=== PATIENT | female | born 1940 | race African-American/Black ===

== ENCOUNTER 2017-09-16 22:18 | Observation (INO) | payer MEDICARE, MEDICAID ==
--- NOTE | 2017-09-16 23:58 | CT ---
CT HEAD NONCONTRAST 09/16/17 INDICATION: Fall, pain. Reference made to 05/22/15 exam. FINDINGS: Ventricular system is age appropriate in size. There is no intracranial hemorrhage, mass effect or mi dline shift. Exam is stable appearing to 05/22/15 exam. IMPRESSION: No acute intracranial hemorrhage or mass effect. POS: [facility]
--- NOTE | 2017-09-17 00:03 | CT ---
CT OF PELVIS 09/16/17 INDICATION: Fall, pain. FINDINGS: No evidence of fracture involving either hip joint. There is degenerative change at the symphysis pub is and sacroiliac joints without evidence for discrete fracture. Scattered areas of degenerative scle rosis and cyst formation noted. There is an incidental note of multilevel gas vacuum phenomenon at th e low lumbar spine. Prominent facet osteoarthritis is present as well. Subtle areas of osseous lucenc y of the bilateral iliac bones are present which could relate to areas of focal demineralization. Inc idental note of colonic diverticulosis and vascular disease. No pelvic ascites. IMPRESSION: No acute fracture of the pelvis identified. POS: [facility]
[2017-09-17] MEDS ORDERED: Fentanyl 100 MCG/2 ML VIAL ONE (00:07)
[2017-09-17 00:16] LABS: CKMB 0.5 ng/mL (0-6.6); Troponin I 0.023 ng/mL (< 0.028)
[2017-09-17 00:17] LABS: ALT (SGPT) 9 U/L (8-55); AST (SGOT) 14 U/L (5-34); Albumin 3.5 g/dL (3.4-4.8); Alkaline Phosphatase 94 U/L (40-150); Anion Gap 15 mmol/L (10-20); BUN (Urea Nitrogen) 55 mg/dL (9.8-20.1); Bilirubin, Total 0.6 mg/dL (0.2-1.2); Calc. Creatinine Clearance 0 mL/min (70-130); Calcium 8.6 mg/dL (7.8-10.44); Carbon Dioxide 31 mmol/L (23-31); Chloride 99 mmol/L (98-107); Estimated GFR-MDRD 5; Globulin 2.9 g/dL (2.4-3.5); Glucose 110 mg/dL (83-110); Potassium 5.2 mmol/L (3.5-5.1); Protein, Total 6.4 g/dL (6.0-8.3); Sodium 140 mmol/L (136-145)
[2017-09-17 03:54] LABS: Troponin I 0.018 ng/mL (< 0.028)
[2017-09-17 06:12] LABS: Troponin I 0.025 ng/mL (< 0.028)
[2017-09-17 07:53] VITALS: BMI 44.5
[2017-09-17] MEDS ORDERED: Acetaminophen 325 MG TAB PO PRN (08:37)
[2017-09-17] MEDS ORDERED: Bisacodyl 5 MG TAB PO PRN (08:37)
[2017-09-17] MEDS ORDERED: HumaLOG 300 UNITS/3 ML VIAL SC PRN (08:41)
[2017-09-17] MEDS ORDERED: Dextrose 50% Abboject 50 ML SYRINGE SLOW IVP PRN (08:41)
[2017-09-17] MEDS ORDERED: Dextrose 5% in Water 1,000 ML IV PRN (08:41)
[2017-09-17] MEDS ORDERED: Nitroglycerin 0.4 MG TAB (25 Tab Bottle) SL PRN (09:02)
--- NOTE | 2017-09-17 09:20 | HP ---
PRIMARY CARE PHYSICIAN: Neela Hugo M.D. CHIEF COMPLAINT: Chest pain. HISTORY OF PRESENT ILLNESS: Ms. Ansari is a pleasant 77-year-old lady who was seen at [facility] on 09/17/2017 following transfer from emergency room at [place]. The patient is able to provide some history. Collateral history was obtained from review of medical records and from discussion with emergency room physician. Ms. Ansari was reportedly sitting in a chair yesterday when she felt pain in the retrosternal region a s well as over the left side of her chest. She reports that it was dull, nonradiating, not accompani ed by shortness of breath or nausea, no known aggravating or relieving factors. The pain lasted few minutes and resolved. She subsequently tried to get out to the chair and fell down. She denies loss of consciousness. She denies any head trauma. She reports pain in the left lower extremity, which has almost resolved. She currently has no chest pain. REVIEW OF SYSTEMS: The following complete review of systems was negative, unless otherwise mentioned in the HPI or below: Constitutional: Weight loss or gain, sense of well-being, ability to conduct usual activities, exerc ise tolerance. Skin/Breast: Rash, itching, changes in hair growth or loss, nail changes, breast lumps, tenderness, swelling, nipple discharge. Eyes: Vision, double vision, tearing, blind spots, pain. ENT/Mouth: Headaches (location, time of onset, duration, precipitating factors), vertigo, lightheade dness, injury. Vision, double vision, tearing, blind spots, pain, nose bleeding, colds, obstruction, discharge, dental difficulties, gingival bleeding, dentures, neck stiffness, pain, tenderness, masses in thyroid or other areas Cardiovascular: Precordial pain, substernal distress, palpitations, syncope, dyspnea on exertion, or thopnea, nocturnal paroxysmal dyspnea, edema, cyanosis, hypertension, heart murmurs, varicosities, ph lebitis, claudication. Respiratory: Pain, shortness of breath, wheezing, stridor, cough, hemoptysis, fever or night sweats Gastrointestinal: Poor appetite, dysphagia, indigestion, abdominal pain, heartburn, eructation, naus ea, vomiting, hematemesis, jaundice, constipation, or diarrhea, abnormal stools (sandoval-colored, tarry, bloody, greasy, foul smelling), flatulence, hemorrhoids, recent changes in bowel habits. Genitourinary: Urgency, frequency, dysuria, nocturia, hematuria, polyuria, oliguria, unusual (or trin[place] nge in) color of urine, stones, hesitancy, change in size of stream, dribbling, acute retention or in continence, libido, potency. Musculoskeletal: Pain, swelling, redness or heat of muscles or joints, limitation, of motion, muscul ar weakness, atrophy, cramps. Neurologic/Psychiatric: Convulsions, paralyses, tremor, incoordination, paraesthesias, difficulties with memory of speech, sensory or motor disturbances, or muscular coordination (ataxia, tremor), emot ional problems, anxiety, depression, previous psychiatric care, unusual perceptions, hallucinations. Allergy/Immunologic: Skin rash, anemia, bleeding tendency, polydipsia, polyuria, intolerance to heat or cold. PAST MEDICAL HISTORY: Significant for diabetes mellitus type 2, chronic diastolic heart failure, end -stage renal disease on hemodialysis, she was supposed to get dialysis yesterday, but did not get gerald lyzed and was supposed to undergo hemodialysis today, pulmonary embolism on warfarin therapy, breast cancer status post mastectomy, hypertension, chronic pain, gout, dyslipidemia, and chronic anemia. PAST SURGICAL HISTORY: Significant for bilateral mastectomy and dialysis fistula placement. ALLERGIES: No known drug allergies. FAMILY HISTORY: Significant for pulmonary embolism in the patient's son. SOCIAL HISTORY: The patient denies tobacco use, alcohol use or recreational drug use. CODE STATUS: I discussed her code status. She is FULL CODE. CURRENT MEDICATIONS: Include warfarin 2.5 mg every other day, allopurinol 100 mg daily, Nitrostat p. r.n., amitriptyline 50 mg daily, anastrozole 1 mg daily, atorvastatin 10 mg daily, folic acid 800 mcg daily, gabapentin 300 mg 3 times a day, Coreg 3.125 mg daily, Renvela 800 mg 2 tablets three times a day, [place] p.r.n., and Sensipar 30 mg daily. PHYSICAL EXAMINATION: GENERAL: On examination, Ms. Ansari is awake and alert, not in acute distress. VITAL SIGNS: Blood pressure is 144/66, pulse is 80. She is breathing at rate of 16 and saturating 9 7% on 2 liters of oxygen. She is afebrile. She is morbidly obese, with BMI of 44.[address] kg [address] square [address] ter. EYES: No scleral icterus. No conjunctival pallor. ENT: Moist mucosal membranes. No oropharyngeal erythema or exudates. NECK: Supple, nontender, normal range of movement. Trachea is midline. RESPIRATORY: Accessory muscles of breathing are not active. Chest wall movements are symmetric bila terally. LUNGS: Clear to auscultation without wheeze, rhonchi or crepitations. ABDOMEN: Soft, distended, nontender, bowel sounds are heard, no hepatomegaly, no splenomegaly. CARDIOVASCULAR: S1 and S2 are heard, regular. Peripheral pulses palpable. No carotid bruit, no per icardial rub. She has a right upper extremity dialysis access. NEUROLOGIC: Cranial nerves II-XII are intact. Deep tendon reflexes are 2+. MUSCULOSKELETAL: Mild tenderness over the left calf. SKIN: No rashes or subcutaneous nodules. LYMPHATIC: No cervical lymphadenopathy. PSYCHIATRIC: Normal mood, normal affect, patient is oriented to person and place, not to time. IMAGING DATA AND LABORATORY DATA: Ms. Ansari's labs and investigations were reviewed. I reviewed her electrocardiogram, which shows normal sinus rhythm, no ST changes to suggest an acute coronary syndr ome. I also reviewed her chest x-ray, which does not show any pulmonary infiltrates. X-rays of the left hip did not reveal any fracture or dislocation. She has minimal degenerative changes. CT scan of the brain without contrast did not reveal any acute intracranial hemorrhage or mass effect. CT sc an of the pelvis did not reveal any acute fracture. Laboratory investigation show INR of 2.4 and D-d alon elevated at 0.64. Sodium 140, potassium elevated at 5.2, creatinine elevated at 9.16, unremarka ble liver profile, BNP elevated at 329.9 and negative troponin I x4. ASSESSMENT AND PLAN: Ms. Ansari is a pleasant 77-year-old lady who was seen at [facility] on 09/17/2017. Her problem list includes: 1. Chest pain: This has resolved. She has risk factors for coronary artery disease. We will monit or her on telemetry and order nuclear stress test. 2. End-stage renal disease on dialysis. Consult Nephrology for maintenance hemodialysis. 3. Fall: We will have her mobility evaluated after ruling out acute coronary syndrome. 4. Leg pain: She complains of left lower extremity pain. She has calf tenderness. Her INR is ther apeutic and she is less likely to have deep venous thrombosis. We will check carotid Dopplers to rul e out anticoagulation failure. 5. Diabetes mellitus: Start Accu-Cheks, insulin sliding scale. 6. Hypertension: Monitor vital signs, titrate antihypertensives as needed. 7. Dyslipidemia: Continue statins. Many thanks for allowing me to participate in your patient's care. Please feel free to contact me wi th any questions or concerns. LEVEL OF RISK: High. LEVEL OF COMPLEXITY: High.
[2017-09-17 10:26] LABS: Hep B Surf Ag Non-Reactive S/CO (NonReactive)
--- NOTE | 2017-09-17 11:03 | CON ---
DATE OF CONSULTATION: 09/17/2017 SUBJECTIVE: Ms. Ansari is a 77-year-old black female with known history of ESRD - on maintenance hemo dialysis and admitted for chest pain. Patient was apparently well until about a day prior to admissi on when she developed a nonspecific chest pain. She denied any syncopal episode with this. She had a mild shortness of breath. She has also some tremors at that time. We are now being consulted for her maintenance hemodialysis. She is due for dialysis today. REVIEW OF SYSTEMS: Positive for chest pain. Positive for mild shortness of breath. No nausea, no s ore throat, and positive for tremors. No diarrhea, no constipation, no gross hematuria, no productiv e cough, no fever or chills, no headache, no syncopal episode, no hematochezia, no melena, no hematem esis. Appetite and energy level is fair. Occasional joint pains. PAST MEDICAL HISTORY: Includes the following; ESRD, currently on maintenance hemodialysis 3 times a week; history of anxiety; longstanding hypertension; diabetes mellitus; hyperlipidemia; breast cancer in remission; diabetic neuropathy, status post CHF - diastolic dysfunction; history of gout and DJD. PAST SURGICAL HISTORY: 1. Status post AV fistula placement. 2. Status post cuffed dialysis catheter placement. 3. Status post colonoscopy. 4. Status post laparoscopic cholecystectomy. 5. Status post left breast biopsy. 6. Status post left mastectomy 7. Status post right knee replacement. SOCIAL HISTORY: Patient lives in [place], 6 children, eleventh grade. 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 No history of smoking. Status post blood transfusion. No IV drug abuse. No alcohol use, 7 siblings, 6 childre n, lives alone. ALLERGIES: None. TRAUMA: None. IMMUNIZATIONS: Up to date. HOSPITALIZATIONS: Please see past medical history. FAMILY HISTORY: Positive family history of ESRD. One sister on dialysis. PHYSICAL EXAMINATION: VITAL SIGNS: Blood pressure is noted at 144/66, heart rate 80, respiratory rate 16, temperature 97.8 , and pulse ox 97%. GENERAL: Noted to be awake, supine, morbidly obese, not in distress. SKIN: Adequate turgor. HEENT: Patient has pinkish conjunctivae, anicteric sclerae. NECK: No neck mass, no carotid bruits, no JVD. CHEST: No deformities. LUNGS: Clear breath sounds. No wheezing, no crackles. HEART: Normal sinus rhythm. No murmur, no gallops, no rubs. ABDOMEN: Globular, soft, nontender, no masses. EXTREMITIES: No edema, no deformities. MEDICATIONS: Medications of 09/17/2017 shows the following: Tylenol p.r.n., [place] 10/325 t.i.d. as needed, Zyloprim 100 mg tab once a day, Arimidex 1 mg daily, Lipitor 10 mg at bedtime, Coreg dose unk nown, Sensipar 30 mg daily, Folvite 0.8 mg once a day, heparin 5000 units subcutaneous b.i.d., Renvel a 800 mg 2 tabs t.i.d. with meals, and Coumadin as directed. ASSESSMENT AND PLAN: 1. End-stage renal disease, stable. We will continue 3 times a week hemodialysis regimen with this patient. I reviewed her KT/V and she is well dialyzed with the current hemodialysis regimen. The pl an is to do dialyzer for 4 hours with ultrafiltration of 2-3 liters. Heparin regimen to be followed from her outpatient dialysis regimen. In addition, no changes will be made with the current dialysis . The patient has been doing well with the current dialysis regimen. 2. Chest pain. The patient being ruled out for myocardial infarction. Possible cardiac stress test ? 3. Anemia - she is stable. There is no indication to initiate Epogen for the moment. We will only restart Epogen once hemoglobin drops down to 10 or less. Overall, agree with current management.
[2017-09-17] MEDS: Sevelamer Carbonate 800 MG TAB PO SCH ×2 (13:19→20:32)
--- NOTE | 2017-09-17 14:42 | NM ---
MYOCARDIAL STRESS STUDY: HISTORY: Chest pain. TECHNIQUE/FINDINGS: Dose: 28.3 mCi of technetium-99m Cardiolite for the stress portion of the exam. The patient was stre ssed using 57.7 mg of Adenosine. Myocardial perfusion stress study demonstrates no evidence of areas of myocardial ischemia or scar. E jection fraction measures 62%. IMPRESSION: No evidence of myocardial perfusion abnormalities on the stress images. Resting portion was not indic ated. POS: [facility]
--- NOTE | 2017-09-17 16:18 | ULT ---
LEFT LOWER EXTREMITY VENOUS DOPPLER ULTRASOUND: Date: 09/17/17 HISTORY: Left lower extremity swelling/edema. TECHNIQUE: Multiple longitudinal and transverse images of the left lower extremity venous systems are obtained u sing multihertz linear array transducer. Real-time, color flow, and spectral waveform Doppler analysi s used to evaluate the left lower extremity. FINDINGS: No evidence of acute or old clot seen on the left common femoral, superficial femoral, femora profund a, popliteal, posterior tibial vein, post-trifurcation vein, or greater saphenous vein. There does appear to be some edema noted within the soft tissues. IMPRESSION: 1. No evidence of left lower extremity deep venous thrombosis. 2. Soft tissue edema as noted. POS: [facility]
[2017-09-17] MEDS ORDERED: ADENOSINE 60 MG/20 ML VIAL ONE (16:19)
--- NOTE | 2017-09-17 16:43 | PDOC.EVN ---
Event Note - Event Note Event Note: Pt had orders with status of Inpatient. Discussed with case management. Pt does not meet the criteria for Inpatient status. Changed status to Observation status.
[2017-09-17] MEDS ORDERED: Warfarin Sodium 2.5 MG TAB PO SCH (17:00)
[2017-09-17] MEDS: Gabapentin 300 MG CAP PO SCH ×2 (17:57→20:35)
[2017-09-17] MEDS: HYDROcodone/Acetaminophen 10/325 mg Tablet PO SCH ×2 (17:57→20:35)
[2017-09-17] MEDS: Carvedilol 3.125 MG TAB PO SCH (20:34)
[2017-09-17] MEDS: Amitriptyline HCl 25 MG TAB PO SCH (20:36)
[2017-09-17] MEDS: Docusate 100 MG CAP PO PRN (20:37)
[2017-09-17] MEDS: Atorvastatin Calcium 10 MG TAB PO SCH (20:39)
[2017-09-17] MEDS ORDERED: Warfarin Sodium 2 MG TAB PO SCH (20:45)
[2017-09-18 04:43] LABS: INR-International Normal Ratio 2.5
[2017-09-18 04:45] LABS: #Eosinphils 0.3 thou/uL (0.0-0.7); #Monocytes 0.5 thou/uL (0.11-0.59); #Neutrophils 6.1 thou/uL (1.40-6.50); %Basophils 0.5 % (0.0-1.0); %Eosinophils 3.2 % (0.0-10.0); %Lymphocytes 12.2 % (21.0-51.0); %Monocytes 6.4 % (0.0-10.0); %Neutrophils 77.7 % (42.0-75.0); Hemoglobin 9.9 g/dL (12.0-16.0); Mean Corpuscular HGB CONC 31.7 g/dL (32.0-36.0); Mean Corpuscular Hemoglobin 31.7 pg (27.0-31.0); Mean Corpuscular Volume 99.9 fl (81.0-99.0); Mean Platelet Volume 7.2 fL (7.4-10.4); Platelet Count 252 thou/uL (130-400); RBC Distribution Width 13.4 % (11.5-14.5); Red Blood Cell (RBC) Count 3.11 mill/uL (4.20-5.40); White Blood Cell (WBC) Count 7.8 thou/uL (4.8-10.8)
[2017-09-18 05:16] LABS: Anion Gap 11 mmol/L (10-20); BUN (Urea Nitrogen) 29 mg/dL (9.8-20.1); Calc. Creatinine Clearance 14 mL/min (70-130); Calcium 8.5 mg/dL (7.8-10.44); Carbon Dioxide 34 mmol/L (23-31); Chloride 99 mmol/L (98-107); Estimated GFR-MDRD 9; Glucose 111 mg/dL (83-110); Potassium 4.3 mmol/L (3.5-5.1); Sodium 140 mmol/L (136-145)
[2017-09-18] MEDS: Folic Acid 1 MG TAB PO SCH (08:12)
[2017-09-18] MEDS: Sevelamer Carbonate 800 MG TAB PO SCH ×3 (08:12→17:10)
[2017-09-18] MEDS: Cinacalcet HCl 30 MG TAB PO SCH (08:12)
[2017-09-18] MEDS: Loratadine 10 MG TAB PO SCH (08:12)
[2017-09-18] MEDS: Anastrozole 1 MG TAB PO SCH (08:12)
[2017-09-18] MEDS: Allopurinol 100 MG TAB PO SCH (08:12)
[2017-09-18] MEDS: Gabapentin 300 MG CAP PO SCH ×3 (08:12→19:57)
[2017-09-18] MEDS: HYDROcodone/Acetaminophen 10/325 mg Tablet PO SCH ×3 (08:17→19:57)
--- NOTE | 2017-09-18 15:07 | PDOC.PN ---
- Subjective Encounter Start Date: 09/18/17 Encounter Start Time: 15:06 Pt seen for followup re: chest pain. No chest pain now. No other complaints. - Objective Resuscitation Status: Resuscitation Status FULL:Full Resuscitation MAR Reviewed: Yes Vital Signs & Weight: Vital Signs (12 hours) Temp Pulse Resp BP BP Pulse Ox 09/18/17 08:00 98.2 F 74 18 09/18/17 07:51 97 09/18/17 07:45 98.2 F 74 18 123/58 L 98 09/18/17 04:02 98.5 F 73 12 137/66 97 Weight Weight 226 lb 10.163 oz I&O: 09/17/17 09/18/17 09/19/17 06:59 06:59 06:59 Intake Total 280 Output Total 0 Balance 280 Result Diagrams: 09/18/17 04:04 09/18/17 04:04 Additional Labs: Accuchecks 09/18/17 09/17/17 11:10 20:40 POC Glucose 155 H 95 EKG Reviewed by me: Yes (Tele: NSR) Phys Exam - Physical Examination Constitutional: NAD HEENT: moist MMs Neck: supple Respiratory: clear to auscultation bilateral Cardiovascular: RRR Gastrointestinal: soft Neurological: moves all 4 limbs Psychiatric: normal affect Skin: no rash Dx/Plan (1) Chest pain Code(s): R07.9 - CHEST PAIN, UNSPECIFIED Status: Acute (2) Anticoagulant long-term use Code(s): Z79.01 - HALF-WAY (CURRENT) USE OF ANTICOAGULANTS Status: Chronic (3) DM2 (diabetes mellitus, type 2) Status: Chronic (4) Hypertension Code(s): I10 - ESSENTIAL (PRIMARY) HYPERTENSION Status: Chronic (5) ESRD on dialysis Code(s): N18.6 - END STAGE RENAL DISEASE; Z99.2 - DEPENDENCE ON RENAL DIALYSIS Status: Chronic - Plan PT/OT, out of bed/ambulate * . Stress test normal. No chest pain today. h/o falls. Needs PT eval prior to discharge home. Monitor vital signs, titrate antihypertensives as needed. Continue accuchecks, insulin sliding scale. Review of Systems - Review of Systems Respiratory: negative: Cough, Dry, Shortness of Breath, Hemoptysis, SOB with Excertion, Pleuritic Pain, Sputum, Wheezing Cardiovascular: negative: chest pain, palpitations, orthopnea, paroxysmal nocturnal dyspnea, edema, light headedness - Medications/Allergies Allergies/Adverse Reactions: Allergies Allergy/AdvReac Type Severity Reaction Status Date / Time No Known Drug Allergies Allergy Unknown Verified 04/20/16 14:54 Medications: Current Medications Acetaminophen (Tylenol) 650 mg PO Q4H PRN PRN Reason: Headache/Fever or Pain Last Admin: 09/18/17 04:18 Dose: 650 mg Hydrocodone Bitart/Acetaminophen ([place] 10/325) 1 tab PO TID [facility] Last Admin: 09/18/17 14:18 Dose: 1 tab Allopurinol (Zyloprim) 100 mg PO DAILY [facility] Last Admin: 09/18/17 08:12 Dose: 100 mg Amitriptyline HCl (Elavil) 50 mg PO HS [facility] Last Admin: 09/17/17 20:36 Dose: 50 mg Anastrozole (Arimidex) 1 mg PO DAILY [facility] Last Admin: 09/18/17 08:12 Dose: 1 mg Atorvastatin Calcium (Lipitor) 10 mg PO HS [facility] Last Admin: 09/17/17 20:39 Dose: 10 mg Bisacodyl (Dulcolax) 10 mg PO DAILYPRN PRN PRN Reason: Constipation Carvedilol (Coreg) 3.125 mg PO QPM [facility] Last Admin: 09/17/17 20:34 Dose: 3.125 mg Cinacalcet (Sensipar) 30 mg PO DAILY [facility] Last Admin: 09/18/17 08:12 Dose: 30 mg Dextrose/Water (Dextrose 50%) 25 gm SLOW IVP PRN PRN PRN Reason: Hypoglycemia Docusate Sodium (Colace) 300 mg PO DAILY PRN PRN Reason: Constipation Last Admin: 09/17/17 20:37 Dose: 300 mg Folic Acid (Folvite) 1 mg PO DAILY [facility] Last Admin: 09/18/17 08:12 Dose: 1 mg Gabapentin (Neurontin) 300 mg PO TID [facility] Last Admin: 09/18/17 14:19 Dose: 300 mg Glucagon (Glucagon) 1 mg IM PRN PRN PRN Reason: Hypoglycemia Dextrose/Water (D5w) 1,000 mls @ 0 mls/hr IV .Q0M PRN; As Directed PRN Reason: Hypoglycemia Insulin Human Lispro (Humalog) 0 units SC .MILD SLIDING SCALE PRN PRN Reason: Mild Correctional Scale Lactulose (Lactulose) 20 gm PO PRN PRN PRN Reason: Constipation Loratadine (Claritin) 10 mg PO DAILY [facility] Last Admin: 09/18/17 08:12 Dose: 10 mg Nitroglycerin (Nitrostat) 0.4 mg SL ASDIR PRN PRN Reason: Chest Pain Sevelamer Carbonate (Renvela) 1,600 mg PO TID-WM [facility] Last Admin: 09/18/17 11:43 Dose: 1,600 mg Sodium Chloride (Flush - Normal Saline) 10 ml IVF Q12HR [facility] Last Admin: 09/18/17 08:14 Dose: 10 ml Sodium Chloride (Flush - Normal Saline) 10 ml IVF PRN PRN PRN Reason: Saline Flush Warfarin Sodium (Coumadin) 2 mg PO 1700 [facility]
[2017-09-18] MEDS ORDERED: Warfarin Sodium 2 MG TAB PO SCH (17:00)
[2017-09-18] MEDS: Amitriptyline HCl 25 MG TAB PO SCH (19:56)
[2017-09-18] MEDS: Atorvastatin Calcium 10 MG TAB PO SCH (19:57)
[2017-09-18] MEDS: Carvedilol 3.125 MG TAB PO SCH (19:57)
[2017-09-18] MEDS: Docusate 100 MG CAP PO PRN (19:59)
[2017-09-19 04:35] LABS: #Eosinphils 0.2 thou/uL (0.0-0.7); #Lymphocytes 1.4 thou/uL (1.20-3.40); #Monocytes 0.8 thou/uL (0.11-0.59); #Neutrophils 5.1 thou/uL (1.40-6.50); %Basophils 0.6 % (0.0-1.0); %Lymphocytes 18.5 % (21.0-51.0); %Monocytes 9.9 % (0.0-10.0); Hemoglobin 10.4 g/dL (12.0-16.0); Mean Corpuscular HGB CONC 32.7 g/dL (32.0-36.0); Mean Corpuscular Hemoglobin 32.6 pg (27.0-31.0); Mean Corpuscular Volume 99.9 fl (81.0-99.0); Mean Platelet Volume 7.1 fL (7.4-10.4); Platelet Count 257 thou/uL (130-400); RBC Distribution Width 13.2 % (11.5-14.5); White Blood Cell (WBC) Count 7.5 thou/uL (4.8-10.8)
[2017-09-19 04:38] LABS: INR-International Normal Ratio 2.4; Prothrombin Time 27.3 SEC (12.0-14.7)
[2017-09-19 04:54] LABS: Anion Gap 15 mmol/L (10-20); BUN (Urea Nitrogen) 41 mg/dL (9.8-20.1); Calc. Creatinine Clearance 10 mL/min (70-130); Calcium 8.3 mg/dL (7.8-10.44); Carbon Dioxide 31 mmol/L (23-31); Chloride 98 mmol/L (98-107); Estimated GFR-MDRD 6; Glucose 103 mg/dL (83-110); Potassium 4.2 mmol/L (3.5-5.1); Sodium 140 mmol/L (136-145)
--- NOTE | 2017-09-19 08:20 | PDOC.PN ---
- Subjective Encounter Start Date: 09/19/17 Encounter Start Time: 08:18 Subjective: no chest pain, etc - Objective Resuscitation Status: Resuscitation Status FULL:Full Resuscitation MAR Reviewed: Yes Vital Signs & Weight: Vital Signs (12 hours) Temp Pulse Resp BP Pulse Ox 09/19/17 07:36 98.2 F 83 18 104/58 L 95 09/19/17 03:47 97.9 F 73 18 139/71 98 Weight Weight 225 lb 3.2 oz I&O: 09/18/17 09/19/17 09/20/17 06:59 06:59 06:59 Intake Total 280 1650 Output Total 0 100 Balance 280 1550 Result Diagrams: 09/19/17 03:44 09/19/17 03:44 Additional Labs: Accuchecks 09/18/17 09/18/17 09/18/17 20:35 16:28 11:10 POC Glucose 201 H 149 H 155 H Phys Exam - Physical Examination Neck: no JVD Respiratory: clear to auscultation bilateral Cardiovascular: RRR Gastrointestinal: soft, non-tender, positive bowel sounds Musculoskeletal: edema present Dx/Plan (1) Chest pain Code(s): R07.9 - CHEST PAIN, UNSPECIFIED Status: Resolved (2) ESRD on dialysis Code(s): N18.6 - END STAGE RENAL DISEASE; Z99.2 - DEPENDENCE ON RENAL DIALYSIS Status: Chronic (3) Diastolic dysfunction with acute on chronic heart failure Code(s): I50.33 - ACUTE ON CHRONIC DIASTOLIC (CONGESTIVE) HEART FAILURE Status : Chronic (4) Respiratory failure with hypoxia Code(s): J96.91 - RESPIRATORY FAILURE, UNSPECIFIED WITH HYPOXIA Status: Chronic Qualifiers: Chronicity: chronic Qualified Code(s): J96.11 - Chronic respiratory failure with hypoxia (5) Anticoagulant long-term use Code(s): Z79.01 - [facility]FP (CURRENT) USE OF ANTICOAGULANTS Status: Chronic (6) DM2 (diabetes mellitus, type 2) Status: Chronic Qualifiers: Diabetes mellitus complication status: with kidney complications Chronic kidney disease stage: on chronic dialysis (7) Hypertension Code(s): I10 - ESSENTIAL (PRIMARY) HYPERTENSION Status: Chronic Qualifiers: Hypertension type: essential hypertension Qualified Code(s): I10 - Essential (primary) hypertension (8) h/o Pulmonary embolism on coumadin Status: Chronic - Plan cont current tx, eval for rehab in progress, FU * .
[2017-09-19] MEDS: Sevelamer Carbonate 800 MG TAB PO SCH ×2 (08:35→11:50)
[2017-09-19] MEDS: Folic Acid 1 MG TAB PO SCH (08:35)
[2017-09-19] MEDS: Anastrozole 1 MG TAB PO SCH (08:36)
[2017-09-19] MEDS: HYDROcodone/Acetaminophen 10/325 mg Tablet PO SCH (08:36)
[2017-09-19] MEDS: Cinacalcet HCl 30 MG TAB PO SCH (08:37)
[2017-09-19] MEDS: Allopurinol 100 MG TAB PO SCH (08:37)
[2017-09-19] MEDS: Loratadine 10 MG TAB PO SCH (08:37)
[2017-09-19] MEDS: Gabapentin 300 MG CAP PO SCH (08:37)
[2017-09-19] MEDS ORDERED: Diabetic Tussin 200 MG/10 ML UDCUP PO PRN (09:47)
[2017-09-19 11:28] VITALS: TEMP 99
[2017-09-19 13:28] VITALS: BP 136/62
--- NOTE | 2017-09-19 15:53 | DIS ---
DATE OF ADMISSION: 09/17/2017 DATE OF DISCHARGE: 09/19/2017 PRIMARY CARE PROVIDER: Neela Hugo M.D. DISCHARGE DISPOSITION: Inpatient rehabilitation, [facility]. FINAL DIAGNOSES: Noncardiac chest pain; history of pulmonary emboli; long-term use of anticoagulants ; type 2 diabetes mellitus; end-stage renal disease, on hemodialysis; syncope. DISCHARGE MEDICATIONS: Coumadin 2 mg at 1700 hours, insulin 20 units subcu at bedtime, Levemir, Renv jermaine 1600 mg t.i.d., folic acid 800 mg a day, Neurontin 300 mg 3 times a day, [place] 10/325 one t.i.d. p.r.n., Arimidex 1 mg a day, Lipitor 10 mg a day, Coreg 3.125 mg b.i.d. daily, allopurinol 100 mg a d ay, amitriptyline 50 mg a day, Sensipar 30 mg a day. ALLERGIES: No known drug allergies. PENDING AT TIME OF DISCHARGE: Nothing. CODE STATUS: FULL. HOSPITAL COURSE: The patient admitted to the hospital with chest pain. Nuclear medicine cardiac str ess test was unrevealing for reversible ischemia. Vascular ultrasound of her legs, no evidence of DV T. She was seen and followed by Dr. Leeroy Mcqueen and received hemodialysis while in the hospital. Her pertinent laboratory, white count normal 7.8 and 7.5, hemoglobin 9.9 and 10.4, platelet count 252 ,100 and 257,100. INR 2.5 and 2.4. BUN 29-41 and creatinine 5.5-7.58. Electrolytes balanced. The patient was evaluated for inpatient rehabilitation and has been accepted, is being transferred there for continuing PT/OT. After discharge, she will be seen in followup by . Her INR is stable , but she will need INR testing at some point during her rehabilitation stay. However, her dose has not been adjusted and her INR is perfect at this time.
--- NOTE | 2017-10-03 10:29 | STRESS ---
Acquisition Time: 2017-09-17 10:53:11 Total Exercise Time: 00:04:00 Test Indications: CHEST PAIN Medications: Protocol: ADENOSINE Max HR: 093 BPM 65% of Pred: 142 BPM Max BP: 132/062 mmHG Max Work Load: 1.0 METS THE PATIENT WAS STRESSED ADENOSINE. SHE DID NOT DEVELOP CHEST PAIN. NUCLEAR IMAGES TO FOLLOW. Confirmed by AQUILES ALVAREZ ([id number]), research editor ALMA SAAB ([id number]) on 10/03/2017 10:28:56 AM Referred By: MD Nathan SELBY Confirmed By:AQUILES ALVAREZ
--- NOTE | 2017-11-05 19:19 | EKG ---
Test Reason : Blood Pressure : / mmHG Vent. Rate : 079 BPM Atrial Rate : 079 BPM P-R Int : 144 ms QRS Dur : 088 ms QT Int : 388 ms P-R-T Axes : 046 012 038 degrees QTc Int : 444 ms Normal sinus rhythm Early repolarization Nonspecific T wave abnormality Normal ECG Confirmed by CALLIE ROBERTO, SOFIA Mesa ([id number]), metropolitan editor CHRISTIANO CASE ([id number]) on 11/05/2017 7:18:43 PM Referred By: Confirmed By:SOFIA LEDESMA MD
== END 2017-09-19 14:56 ==
LOC: ERS 22:18 → ERHOLD 09-17 01:07 → INTOOBSV 09-17 01:07 → 2SW 09-17 07:27
PROVIDERS: ADMIT Internal Medicine; ATTEND Internal Medicine
DX: R07.89 Other chest pain (principal); E11.22 Type 2 diabetes mellitus with diabetic chronic kidney disease; I13.2 Hypertensive heart and chronic kidney disease with heart failure and with stage 5 chronic kidney disease, or end stage renal disease; I50.32 Chronic diastolic (congestive) heart failure; N18.6 End stage renal disease; R55 Syncope and collapse; G89.29 Other chronic pain; M10.9 Gout, unspecified; E78.5 Hyperlipidemia, unspecified; D63.1 Anemia in chronic kidney disease; M79.662 Pain in left lower leg; F41.9 Anxiety disorder, unspecified; C50.919 Malignant neoplasm of unspecified site of unspecified female breast; E11.40 Type 2 diabetes mellitus with diabetic neuropathy, unspecified; M19.90 Unspecified osteoarthritis, unspecified site; Z99.2 Dependence on renal dialysis; Z79.01 Long term (current) use of anticoagulants; Z79.4 Long term (current) use of insulin; Z79.899 Other long term (current) drug therapy; Z96.651 Presence of right artificial knee joint; Z90.13 Acquired absence of bilateral breasts and nipples; Z98.890 Other specified postprocedural states; Z86.711 Personal history of pulmonary embolism
CPT/HCPCS: 70450; 72192; 78452; 80048 ×2; 80053; 82553; 82962 ×3; 83880; 84484 ×3; 85025 ×2; 85379; 85610 ×2; 87340; 93005; 93017; 93971; 94760 ×2; 96374; 97116 ×2; 97139 ×2; 97530; 99285; A9500; G0378 ×3; G8978; G8979; 36415; 36416; 90935; A4216; G0257; J0153; J3010

== ENCOUNTER 2017-11-15 22:03 | Inpatient (IN) | payer MEDICARE, MEDICAID ==
[2017-11-15] MEDS ORDERED: Pantoprazole 40 MG VIAL ONE (22:55)
[2017-11-15] MEDS ORDERED: Phytonadione 10 MG/ML AMP ONE (22:57)
[2017-11-15 23:12] LABS: #Basophils 0.1 thou/uL (0.0-0.2); #Eosinphils 0.2 thou/uL (0.0-0.7); #Lymphocytes 1.8 thou/uL (1.20-3.40); #Monocytes 0.7 thou/uL (0.11-0.59); #Neutrophils 6.7 thou/uL (1.40-6.50); %Basophils 0.8 % (0.0-1.0); %Eosinophils 2.6 % (0.0-10.0); %Lymphocytes 18.7 % (21.0-51.0); %Monocytes 7.4 % (0.0-10.0); %Neutrophils 70.4 % (42.0-75.0); Hemoglobin 8.1 g/dL (12.0-16.0); Mean Corpuscular HGB CONC 33.2 g/dL (32.0-36.0); Mean Corpuscular Hemoglobin 33.2 pg (27.0-31.0); Mean Platelet Volume 7.6 fL (7.4-10.4); Platelet Count 249 thou/uL (130-400); RBC Distribution Width 13.6 % (11.5-14.5); Red Blood Cell (RBC) Count 2.45 mill/uL (4.20-5.40); White Blood Cell (WBC) Count 9.5 thou/uL (4.8-10.8)
[2017-11-15 23:19] LABS: PTT 53.3 SEC (22.9-36.1); Prothrombin Time 42.7 SEC (12.0-14.7)
[2017-11-15 23:21] LABS: INR-International Normal Ratio 4.2
[2017-11-15 23:38] LABS: Troponin I 0.044 ng/mL (< 0.028)
[2017-11-16] MEDS ORDERED: Dextrose 5% in Water 1,000 ML IV PRN (02:05)
[2017-11-16] MEDS ORDERED: HumaLOG 300 UNITS/3 ML VIAL SC PRN (02:05)
[2017-11-16] MEDS ORDERED: Dextrose 50% Abboject 50 ML SYRINGE SLOW IVP PRN (02:05)
[2017-11-16] MEDS ORDERED: Ondansetron HCl/PF 4 MG/2 ML Vial IVP PRN (02:05)
[2017-11-16] MEDS ORDERED: Pantoprazole 80 MG in Sodium Chloride 0.9% 100 ML IVP SCH (02:30)
[2017-11-16 05:53] LABS: #Eosinphils 0.4 thou/uL (0.0-0.7); #Lymphocytes 1.9 thou/uL (1.20-3.40); #Monocytes 0.8 thou/uL (0.11-0.59); %Basophils 0.5 % (0.0-1.0); %Eosinophils 4.5 % (0.0-10.0); %Lymphocytes 20.9 % (21.0-51.0); %Monocytes 8.2 % (0.0-10.0); %Neutrophils 65.9 % (42.0-75.0); Hemoglobin 8.8 g/dL (12.0-16.0); Mean Corpuscular HGB CONC 33.1 g/dL (32.0-36.0); Mean Corpuscular Hemoglobin 32.4 pg (27.0-31.0); Mean Corpuscular Volume 97.9 fl (81.0-99.0); Mean Platelet Volume 7.4 fL (7.4-10.4); Platelet Count 215 thou/uL (130-400); RBC Distribution Width 14.4 % (11.5-14.5); Red Blood Cell (RBC) Count 2.72 mill/uL (4.20-5.40); White Blood Cell (WBC) Count 9.2 thou/uL (4.8-10.8)
[2017-11-16 06:02] LABS: INR-International Normal Ratio 1.9; PTT 39.1 SEC (22.9-36.1); Prothrombin Time 22.4 SEC (12.0-14.7)
[2017-11-16 06:05] LABS: ALT (SGPT) Less than 7 U/L (8-55); AST (SGOT) 11 U/L (5-34); Albumin 3.1 g/dL (3.4-4.8); Alkaline Phosphatase 90 U/L (40-150); Anion Gap 13 mmol/L (10-20); BUN (Urea Nitrogen) 62 mg/dL (9.8-20.1); Bilirubin, Total 0.3 mg/dL (0.2-1.2); Calc. Creatinine Clearance 0 mL/min (70-130); Calcium 7.5 mg/dL (7.8-10.44); Carbon Dioxide 31 mmol/L (23-31); Chloride 101 mmol/L (98-107); Estimated GFR-MDRD 6; Glucose 82 mg/dL (83-110); Potassium 3.6 mmol/L (3.5-5.1); Protein, Total 5.1 g/dL (6.0-8.3); Sodium 141 mmol/L (136-145)
--- NOTE | 2017-11-16 06:17 | HP ---
PRIMARY CARE PHYSICIAN: Dr. Neela Hugo PRIMARY GROUNDS CREW SUPERVISOR: Dr. Mcqueen TIME OF SERVICE: [id number] CHIEF COMPLAINT: Throwing up and pooping blood. HISTORY OF PRESENT ILLNESS: Ms. Ansari is a 77-year-old female with a history of gerald betes, chronic diastolic congestive heart failure, end-stage renal disease, on hemodialysis Tuesday, , and Tuesday, followed by Dr. Mcqueen, pulmonary embolus/DVT on Coumadin, breast cancer status po st mastectomy and hypertension. The patient began feeling poorly on 11/14/2017 and on 11/15/2017 had several episodes of vomiting coffee ground type black material and an episode of black tarry stool. She presented to the [facility] for evaluation. She states she did go to dialysis on 11/14/2017 prior to feeling poorly. Everything really started a fterwards. She has had some abdominal cramping, has felt lightheaded when she stands up, but has not passed out. She did develop some left-sided chest pain that resolved and has not returned. At the outside emergency department, labs were drawn that showed a hemoglobin of 8.2. Her last one a bout 4 weeks ago was around 10. She was subsequently transferred here for GI bleed workup. PAST MEDICAL HISTORY: 1. Diabetes mellitus type 2. 2. Chronic diastolic congestive heart failure. 3. End-stage renal disease, on hemodialysis Tuesday, Tuesday, Tuesday. 4. Pulmonary embolus/DVT on Coumadin. 5. Breast cancer, status post bilateral mastectomy. 6. Hypertension. 7. Chronic pain. 8. Hyperlipidemia. 9. Anemia of renal disease. PAST SURGICAL HISTORY: 1. Bilateral mastectomy for breast cancer. 2. Right upper extremity fistula creation. HOME MEDICATIONS: 1. Coumadin 12.5 mg every other day. 2. Renvela 1600 mg p.o. t.i.d. with meals. 3. Lactulose 20 grams p.o. as needed for constipation. 4. Claritin 10 mg p.o. daily. 5. Levemir 20 units subcu q.p.m. 6. Humalog sliding scale b.i.d. a.c. 7. Hydrocodone 10/325 one tab p.o. t.i.d. 8. Neurontin 300 mg p.o. t.i.d. 9. Folic acid 800 mcg daily. 10. Sensipar 30 mg daily. 11. Coreg 6.25 mg daily. 12. Docusate as needed. 13. Lipitor 10 mg p.o. at bedtime. 14. Arimidex 1 mg daily. 15. Amitriptyline 50 mg p.o. at bedtime. 16. Allopurinol 100 mg daily. 17. Tylenol as needed. ALLERGIES: NKDA. FAMILY HISTORY: Significant for son with a pulmonary embolus. Negative for history of clotting. Ne gative for history of bleeding disorders or immune dysfunction. SOCIAL HISTORY: Negative for habits x3. REVIEW OF SYSTEMS: A 10-point review of systems was performed, negative for all systems except as st ated per HPI. PHYSICAL EXAMINATION: VITAL SIGNS: Temperature 99.0, pulse 84, blood pressure 118/54, respiratory rate 18, satting 96% on 2 liters, 94% on room air. GENERAL: She is awake. She is alert, she is oriented x3. She is an obese, well-developed, well-nou rished female who appears to be in no acute distress. HEENT: Normocephalic, atraumatic. Pupils equal, round, react to light bilaterally, mucous membranes are moist. She has no visible lesions or thrush. NECK: Supple, without lymphadenopathy, JVD, or thyromegaly. Carotid upstrokes without any bruits. LUNGS: Clear. She has no wheezes, no rales or rhonchi. Good air movement. Symmetrical chest excur enedina. CARDIOVASCULAR: Normal S1, S2. No S3 or S4. She has a 2/6 systolic ejection murmur in the right st ernal border. ABDOMEN: Obese. It is nontender, nondistended. She has hyperactive bowel sounds in all 4 quadrants . There is no rebound, rigidity or guarding. EXTREMITIES: Show no cyanosis or clubbing with 1+ pedal edema. SKIN: Warm was well perfused. She has no other rash or lesions. Right extremity fistula has a palp able thrill. NEUROLOGIC: Cranial nerves II-XII are grossly intact without any focal neurologic deficit. She has normal speech pattern. MUSCULOSKELETAL: Normal to inspection. Large joints are noninflamed. There is no palpable effusion s. LABORATORY DATA: Sodium 142, potassium 3.7, chloride 98, bicarbonate 30, BUN 56, creatinine 6.41, gl ucose 126, and calcium 7.8. INR is 4.2. It was 3.8 at the outside facility. Liver functions are co mpletely normal. CBC showed a white count of 9.5, hemoglobin 8.1, hematocrit of 24.5, platelet count is 249,000, hemog lobin initially at the outside facility is 8.2, repeat 7.9, repeat here is 8.1. It was down 10.5 on 10/17/2017. Chest x-ray showed no acute cardiopulmonary disease. ASSESSMENT AND PLAN: 1. Probable upper gastrointestinal bleed. She is getting a unit of blood in the emergency departmen t where she is holding. She only has 1 peripheral IV. After that is complete we will start her on a Protonix drip. She received 40 mg of Protonix. We will keep her n.p.o. I will ask GI to evaluate and get serial H&Hs. 2. Diabetes mellitus type 2. We will hold her Levemir and NovoLog for now, NovoLog sliding scale fo r hyperglycemia. 3. Chronic diastolic congestive heart failure without acute exacerbation. 4. End-stage renal disease on hemodialysis, we will consult Dr. Mcqueen and notify of her admission. 5. PE on Coumadin. 6. Iatrogenic coagulopathy: INR was 4.2 here. She got 10 mg IV vitamin K. [facility]. 7. Breast cancer, status post mastectomies bilaterally. 8. Hypertension. She is n.p.o., we will hold her medicines for now. We will resume them if her blo od pressure gets too high. 9. Renal disease. 10. Hyperlipidemia. Lipitor is on hold.
[2017-11-16] MEDS ORDERED: Epoetin (ESRD) 20,000 UNITS/ML SC SCH (09:45)
[2017-11-16] MEDS ORDERED: Epoetin (ESRD) 10,000 UNITS/ML VIAL SC SCH (10:00)
--- NOTE | 2017-11-16 10:08 | CON ---
DATE OF CONSULTATION: 11/16/2017 HISTORY: Ms. Ansari is a 77-year-old black female with ESRD - maintenance hemodialysis. Admitted for GI bleed. According to the patient, she started passing tarry stools one day prior to admission. I n addition, she has had some degree of hematemesis. We are now being consulted for her maintenance h emodialysis. REVIEW OF SYSTEMS: Positive for generalized malaise. Positive for hematemesis, positive tarry stool s. No abdominal pain, no syncopal episode, no nausea, no vomiting, no dysuria, no urinary frequency, decreased energy level. No headache, no syncopal episode, no chest pain, no shortness of breath. O ccasional joint pains. Appetite and energy level is decreased. HOME MEDICATIONS: Coumadin 12.5 mg every other day, Renvela 800 mg 2 tabs t.i.d. with meals, lactulo se 20 grams p.r.n., Levemir 20 units subcutaneously at bedtime, Humalog sliding scale, hydrocodone 10 /325. t.i.d. as needed, Neurontin 300 mg p.o. t.i.d., folic acid 800 mcg daily, Sensipar 30 mg daily , Coreg 6.25 mg once a day, Lipitor 10 mg tab at bedtime, Arimidex 1 mg tab daily, amitriptyline 50 m g at bedtime, allopurinol 100 mg once a day. PAST MEDICAL HISTORY: 1. Breast cancer - in remission. 2. Type 2 diabetes mellitus. 3. ESRD - on maintenance hemodialysis. 4. Status post PE/DVT. 5. Hypertension. 6. Chronic pain. 7. Hyperlipidemia. 8. Chronic anemia of renal disease. 9. Status post congestive heart failure. PAST SURGICAL HISTORY: 1. Status post breast biopsy. 2. Status post bilateral mastectomy for breast cancer. 3. Status post right upper extremity AV fistula placement. 4. Status post cuffed dialysis catheter placement. 5. Status post laparoscopic cholecystectomy. 6. Status post colonoscopy. 7. Status post right knee replacement. SOCIAL HISTORY: The patient lives at [place], 6 children. Education; eleventh grade. No histor y of smoking. Status post blood transfusion. No IV drug abuse. No alcohol use. Seven siblings. S he lives alone. ALLERGIES: None. TRAUMA: None. IMMUNIZATIONS: Up to date. HOSPITALIZATIONS: Please see past medical history. FAMILY HISTORY: Positive family history of ESRD. One sister on dialysis. PHYSICAL EXAMINATION: VITAL SIGNS: Blood pressure is noted at 120/70 with a heart rate of 70. GENERAL: Awake, alert, obese, comfortable, not in distress. SKIN: Adequate turgor. HEENT: Slightly pale conjunctivae, anicteric sclerae. NECK: No neck mass, no carotid bruits, no JVD. CHEST: No deformities. LUNGS: Clear breath sounds. HEART: Normal sinus rhythm. No murmur, no gallops or rubs. ABDOMEN: Globular, soft, nontender. No masses. EXTREMITIES: No edema, no deformities. LABORATORY: 11/16/2017 - Hemoglobin 8.8, white count 9.2, sodium 141, potassium 3.6, chloride 101, c arbon dioxide 31, BUN 62, creatinine 7.45, glucose 82, calcium 7.5, AST is 11, ALT less than 7, alkal ine phosphatase 90, albumin 3.1, hemoglobin A1c is 5.0. INR is currently 1.9. ASSESSMENT AND PLAN: 1. Upper gastrointestinal bleed - supportive care, p.r.n. blood transfusion. Consider GI consultati on. Will plan no heparin with dialysis. 2. End-stage renal disease, stable. We will plan for a heparin free hemodialysis this afternoon. W e will do her for 4 hours. Fluid removal only as tolerated by the patient. She will continue with t he standard hemodialysis bath. Review of the last Kt/V suggests she is adequately dialyzed with the current dialysis regimen. 3. We will start patient with Epogen at 10,000 units subcutaneously every week due to the anemia.
[2017-11-16 11:26] LABS: Hemoglobin 8.8 g/dL (12.0-16.0)
[2017-11-16 12:36] VITALS: BMI 42.3
[2017-11-16 15:19] LABS: Hemoglobin 8.9 g/dL (12.0-16.0)
[2017-11-16 16:45] LABS: Troponin I 0.043 ng/mL (< 0.028)
[2017-11-16 17:09] LABS: Hep B Surf Ag Non-Reactive S/CO (NonReactive)
[2017-11-16] MEDS: Sodium Chloride 0.9% 1,000 ML IV SCH (21:02)
[2017-11-16] MEDS: Pantoprazole 40 MG VIAL IVP SCH (21:09)
--- NOTE | 2017-11-16 21:43 | CON ---
DATE OF CONSULTATION: 11/16/2017 REASON FOR CONSULTATION: GI bleeding. HISTORY OF PRESENT ILLNESS: Ms. Ansari is a pleasant 77-year-old, she is presently on dialysis. She reports that starting on Tuesday, she began to have some black stools and she had one episode of coffe e ground emesis. She reports she has a little bit of periumbilical discomfort, but is not having any pain now. She actually wants to eat as she has been n.p.o. all day. She is on chronic Coumadin the rapy for a prior history of DVT and pulmonary embolus. She has had a previous history of breast canc er and mastectomy. She also has hypertension. She has been on dialysis for a few years, has some he art failure and history of diabetes. She was seen in the emergency room in [place] and then tra nsferred here. She did go to dialysis on Tuesday the , but was feeling poorly at that time, altho ugh she kind of started after dialysis. She has had no syncopal episode. She has a little bit of le ft chest pain that is resolved and not returned. She is still a little bit lightheaded with standing . At the outside of emergency room, her hemoglobin was 8.2, last one here about 4 weeks ago was arou nd 10. She has had no further episodes of hematemesis or melena since arrival. Presently she is on dialysis. PAST MEDICAL HISTORY: Type 2 diabetes; chronic diastolic congestive heart failure; end-stage renal d isease; on dialysis Tuesday, Tuesday, and Tuesday, presently on dialysis; pulmonary embolus; DVT, on Coumadin; breast cancer; previous bilateral mastectomy; hypertension; chronic abdominal pain; hyperli pidemia; anemia of chronic disease. PAST SURGICAL HISTORY: Bilateral mastectomy for breast cancer, right upper extremity fistula creatio n. She had upper and lower endoscopies in 2013 for history of diverticulosis and gastritis with epis ode of bleeding. She was in this hospital with heme positive stools and was over anticoagulated in 2 015. No endoscopy was performed at that time. She has had serial H&H. She had little bit of bright red blood per rectum at that time. FAMILY HISTORY: Notable for some pulmonary embolus. No history of liver disease. She does have a f amily history of colorectal cancer. MEDICATIONS: Coumadin, , lactulose, Claritin, Levemir, Humalog sliding scale, hydrocodone, Neur ontin, folic acid, Sensipar, Coreg, docusate, Lipitor, Arimidex, amitriptyline, allopurinol, p.r.n. T ylenol. PHYSICAL EXAMINATION: GENERAL: The patient is resting comfortably on dialysis at this time. She has no nausea or vomiting . She has no pain. She states she is hungry. LUNGS: Clear. HEART: Regular rhythm. ABDOMEN: Protuberant, soft, and nontender. There is no rebound. There is no guarding. VITAL SIGNS: Temperature is 98, pulse 72, blood pressure is 98/57 to 111/53. EXTREMITIES: No clubbing, cyanosis, or edema. LABORATORY STUDIES: Hemoglobin 8.9, it was 7.9 yesterday, was 8.2 on 11/15/2017; it has ranged anywh ere from 9-10 typically. INR is 3.8 on 11/15/2017, it is 4.2 late in the afternoon on 11/15/2017, an d today it was 1.9. Sodium 141, potassium 3.6, BUN and creatinine are 62 and 7.45. Liver function t ests are normal. Cardiac enzymes are negative. Protein 5.1, albumin 3.1. Last echocardiogram in , EF 55%-60%. Cardiolite stress test on 09/17/2017; no chest pain, no evidence of myocardial pe rfusion defect. ASSESSMENT: Episode of hematemesis, likely related to over anticoagulation; however, she did have so me melena as well and did drop her hemoglobin a bit. She is presently stable. RECOMMENDATIONS: IV PPI q.12 hours, clear liquids, n.p.o. from midnight, and EGD tomorrow.
[2017-11-17 05:31] LABS: Hemoglobin 8.8 g/dL (12.0-16.0)
[2017-11-17] MEDS: Acetaminophen 325 MG TAB PO PRN (05:31)
[2017-11-17 05:33] LABS: Anion Gap 12 mmol/L (10-20); BUN (Urea Nitrogen) 21 mg/dL (9.8-20.1); Calc. Creatinine Clearance 17 mL/min (70-130); Calcium 7.7 mg/dL (7.8-10.44); Carbon Dioxide 28 mmol/L (23-31); Chloride 98 mmol/L (98-107); Estimated GFR-MDRD 13; Glucose 78 mg/dL (83-110); Potassium 3.3 mmol/L (3.5-5.1); Sodium 135 mmol/L (136-145)
[2017-11-17] MEDS: Folic Acid/Vit B Comp W-C PO SCH (08:11)
[2017-11-17] MEDS: Pantoprazole 40 MG VIAL IVP SCH ×2 (08:12→20:02)
--- NOTE | 2017-11-17 08:55 | PRG ---
DATE OF SERVICE: 11/17/2017 RENAL MEDICINE SUBJECTIVE: Ms. Ansari is a 77-year-old black female with ESRD and admitted for GI bleed. She underw ent hemodialysis without heparin yesterday. She tolerated the said treatment. A consultation has al ready been done with Dr. Soares. There is a planned upper GI endoscopy later tonight. No new compla ints today. Denies any chest pain or shortness of breath. PHYSICAL EXAMINATION: VITAL SIGNS: Blood pressure 104/56, heart rate 85, respiratory rate 18, temperature 98.6, pulse ox 9 5%. GENERAL: Awake, supine, comfortable, not in distress, morbidly obese. SKIN: Adequate turgor. HEENT: Slightly pale conjunctivae, anicteric sclerae. NECK: No neck mass, no carotid bruits, no JVD. CHEST: No deformities. LUNGS: Clear breath sounds. No wheezing, no crackles. HEART: Normal sinus rhythm. No murmurs, no gallops, no rubs. ABDOMEN: Globular, soft, nontender, no masses. EXTREMITIES: No edema, no deformities. MEDICATIONS: Medications of 11/17/2017 was reviewed. LABORATORY DATA: Laboratories of 11/17/2017, hemoglobin 8.8, hematocrit 25.9. Sodium 135, potassium 3.3, chloride 98, carbon dioxide 28, BUN 21, creatinine 4.13, glucose 478, and calcium 7.7. ASSESSMENT AND PLAN: 1. Upper gastrointestinal bleed - GI following for upper GI endoscopy today. P.r.n. blood transfusi on. 2. Anemia - continuing weekly Epogen. 3. End-stage renal disease, stable. Continuing Tuesday, Tuesday, Tuesday hemodialysis. No indicati on for any emergent hemodialysis today. Again, fluid removal only as tolerated with this patient due to the recent gastrointestinal bleed, no heparin is being used.
--- NOTE | 2017-11-17 12:13 | PDOC.PN ---
- Subjective Encounter Start Date: 11/17/17 Encounter Start Time: 07:00 Pt seen for followup re: GI bleed. Denies any nausea or vomiting. Denies chest pain. No abdo pain. - Objective Resuscitation Status: Resuscitation Status FULL:Full Resuscitation MAR Reviewed: Yes Vital Signs & Weight: Vital Signs (12 hours) Temp Pulse Resp BP Pulse Ox 11/17/17 11:15 98.2 F 80 16 115/53 L 97 11/17/17 08:00 98.6 F 85 18 95 11/17/17 07:58 98.6 F 85 18 104/56 L 95 Weight Weight 215 lb I&O: 11/16/17 11/17/17 11/18/17 06:59 06:59 06:59 Intake Total 492 Output Total 600 Balance -108 Result Diagrams: 11/17/17 05:07 11/17/17 05:07 Additional Labs: Accuchecks 11/17/17 11/16/17 06:17 20:15 POC Glucose 86 65 L EKG Reviewed by me: Yes (Tele: NSR) Phys Exam - Physical Examination Constitutional: NAD HEENT: moist MMs, oral pharynx no lesions Neck: supple Respiratory: clear to auscultation bilateral Cardiovascular: RRR Gastrointestinal: soft Musculoskeletal: no edema Neurological: moves all 4 limbs Psychiatric: normal affect Dx/Plan (1) GI bleed Code(s): K92.2 - GASTROINTESTINAL HEMORRHAGE, UNSPECIFIED Status: Acute (2) Diastolic dysfunction Code(s): I51.9 - HEART DISEASE, UNSPECIFIED Status: Chronic (3) DM2 (diabetes mellitus, type 2) Status: Chronic Qualifiers: Diabetes mellitus complication status: with kidney complications Chronic kidney disease stage: on chronic dialysis (4) ESRD on dialysis Code(s): N18.6 - END STAGE RENAL DISEASE; Z99.2 - DEPENDENCE ON RENAL DIALYSIS Status: Chronic (5) Hypertension Code(s): I10 - ESSENTIAL (PRIMARY) HYPERTENSION Status: Chronic Qualifiers: Hypertension type: essential hypertension Qualified Code(s): I10 - Essential (primary) hypertension - Plan * . Continue accuchecks, insulin sliding scale. Dialysis per nephrology service. Monitor vital signs, titrate antihypertensives as needed. Hemoglobin stable, awaiting scope study. No chest pain, pt had normal stress test on 09/17/2017. Review of Systems - Review of Systems Respiratory: negative: Cough, Dry, Shortness of Breath, Hemoptysis, SOB with Excertion, Pleuritic Pain, Sputum, Wheezing Cardiovascular: negative: chest pain, palpitations, orthopnea, paroxysmal nocturnal dyspnea, edema, light headedness Gastrointestinal: negative: Nausea, Vomiting, Abdominal Pain, Diarrhea, Constipation, Melena, Hematochezia Genitourinary: negative: Dysuria, Frequency, Incontinence, Hematuria, Retention - Medications/Allergies Allergies/Adverse Reactions: Allergies Allergy/AdvReac Type Severity Reaction Status Date / Time No Known Drug Allergies Allergy Unknown Verified 04/20/16 14:54 Medications: Current Medications Acetaminophen (Tylenol) 650 mg PO Q6H PRN PRN Reason: Headache/Fever or Pain Last Admin: 11/17/17 05:31 Dose: 650 mg Dextrose/Water (Dextrose 50%) 25 gm SLOW IVP PRN PRN PRN Reason: Hypoglycemia Epoetin Philippe (Procrit) 10,000 units SC Q7D [facility] Last Admin: 11/16/17 21:01 Dose: 10,000 units Glucagon (Glucagon) 1 mg IM PRN PRN PRN Reason: Hypoglycemia Dextrose/Water (D5w) 1,000 mls @ 0 mls/hr IV .Q0M PRN; As Directed PRN Reason: Hypoglycemia Sodium Chloride (Normal Saline 0.9%) 1,000 mls @ 30 mls/hr IV .Q24H [facility] Last Admin: 11/16/17 21:02 Dose: 1,000 mls Insulin Human Lispro (Humalog) 0 units SC .MILD SLIDING SCALE PRN PRN Reason: Mild Correctional Scale Ondansetron HCl (Zofran) 4 mg IVP Q6H PRN PRN Reason: Nausea/Vomiting Pantoprazole Sodium (Protonix) 40 mg IVP Q12HR [facility] Last Admin: 11/17/17 08:12 Dose: 40 mg Sertraline HCl (Zoloft) 50 mg PO DAILY [facility] Last Admin: 11/17/17 08:11 Dose: 50 mg Sodium Chloride (Flush - Normal Saline) 10 ml IVF Q12HR [facility] Last Admin: 11/17/17 08:12 Dose: 10 ml Sodium Chloride (Flush - Normal Saline) 10 ml IVF PRN PRN PRN Reason: Saline Flush Vitamin B Complex/Vit C/Folic Acid (Nephro-Kamala Tablet) 1 tab PO DAILY [facility] Last Admin: 11/17/17 08:11 Dose: 1 tab
[2017-11-17] MEDS ORDERED: Nitroglycerin 0.4 MG TAB 1 EACH SL PRN (12:50)
[2017-11-17] MEDS ORDERED: Carvedilol 3.125 MG TAB PO SCH (13:00)
[2017-11-17] MEDS: Gabapentin 300 MG CAP PO SCH ×2 (15:20→20:01)
[2017-11-17] MEDS ORDERED: Ondansetron HCl/PF 4 MG/2 ML Vial IVP PRN (15:51)
[2017-11-17] MEDS ORDERED: Promethazine HCl 25 MG/ML VIAL SLOW IVP PRN (15:51)
[2017-11-17] MEDS ORDERED: Morphine Sulfate 2 MG/ML SYRINGE SLOW IVP PRN (15:51)
[2017-11-17] MEDS: Sevelamer Carbonate 800 MG TAB PO SCH (16:37)
[2017-11-17] MEDS ORDERED: ePHEDrine/0.9% NaCl/PF SYRINGE 50 mg/10 ml ONE (16:49)
[2017-11-17] MEDS ORDERED: Metoprolol Tartrate 5 MG/5 ML VIAL ONE (16:49)
[2017-11-17] MEDS ORDERED: PROPOFOL 200 MG/20 ML VIAL ONE (16:49)
[2017-11-17] MEDS ORDERED: PHENYLEPHRINE-NS 100 MCG/ML 10 ML SYRINGE ONE (16:49)
--- NOTE | 2017-11-17 17:46 | OP ---
DATE OF PROCEDURE: 11/17/2017 PROCEDURE: Esophagogastroduodenoscopy with biopsy. INDICATION FOR PROCEDURE: Melena, hematemesis. DESCRIPTION OF PROCEDURE: After the risks, and benefits were explained to the patient including risks of infection, bleeding, perforation, reaction to anesthesia and/or pain. Informed consent was obtained. The patient was then taken back to the endoscopy suite where deep sedation was administered via propofol and anesthesia support. The standard gastroscope was then introduced into the mouth with intubation of the esophagus, stomach and proximal small intestine with the findings listed below. The patient tolerated the procedure well with no immediate perioperative complications. FINDINGS: ESOPHAGUS: Normal appearing mucosa was seen in the proximal, mid and distal esophagus, there was no evidence of erosions, ulcerations, or mass lesions. Both the diaphragmatic pinch and GE junction were well seen at approximately 38 cm past the incisors. STOMACH: Normal appearing mucosa was seen in the cardia, fundus and proximal body and incisura. Scattered ulcerations measuring approximately ranging between 3-5 mm in size were seen in the distal gastric body and gastric antrum. All of these ulcers were clean based superficial ulcerations without any high risk stigmata of bleeding. Random biopsies were taken from both normal mucosa and these ulcers for evaluation of possible etiology. No mass lesions were seen during this examination. DUODENUM: A 2-3 superficial ulcerations were seen in the duodenal bulb that were clean based and without high risk stigmata of bleeding. There was no evidence of active/recent bleeding as well. Normal appearing mucosa was seen in the second portion of the duodenum. IMPRESSION: 1. Multiple scattered small ulcerations seen in both the distal gastric body, gastric antrum, and duodenal bulb were seen without any high risk stigmata or evidence of active/recent bleeding (however, most likely the source of recent hematemesis/melena). 2. Otherwise no abnormalities were seen during the remainder of this examination. RECOMMENDATIONS: 1. Follow up with primary inpatient team. 2. We will follow up on the biopsies for possible H. pylori and treat with triple therapy if positive for that infection. 3. We would continue to trend H&H and transfuse as necessary to maintain an H& H of 7/21. 4. We would continue pantoprazole 40 mg twice daily for now until reevaluated with repeat EGD. 5. We would repeat EGD in approximately 8-12 weeks for reevaluation of the gastric ulcerations to confirm healing. MTDD
[2017-11-17] MEDS: Sodium Chloride 0.9% 1,000 ML IV SCH (20:01)
[2017-11-17] MEDS: Atorvastatin Calcium 10 MG TAB PO SCH (20:01)
[2017-11-17] MEDS ORDERED: LACTULOSE PO SCH (21:00)
[2017-11-18] MEDS: Sodium Chloride 0.9% 1,000 ML IV SCH (08:05)
--- NOTE | 2017-11-18 09:59 | PRG ---
DATE OF SERVICE: 11/18/2017 SUBJECTIVE: Ms. Ansari is a 77-year-old black female with ESRD. She was admitted for upper GI bleed. She underwent yesterday an upper GI endoscopy with finding of small ulcers, but no acute active ble eding. She is currently being dialyzed at the unit. I am at the bedside supervising her hemodialysi s. Due to the recent gastrointestinal bleed, no heparin is being used with the dialysis. No complaints of chest pain or shortness of breath. OBJECTIVE: VITAL SIGNS: Blood pressure 114/75, heart rate 82, respiratory rate 18, temperature 98.2, pulse ox 9 5%. GENERAL: Noted to be awake, alert, comfortable, not in distress. SKIN: Adequate turgor. HEENT: The patient has slightly pale conjunctivae, anicteric sclerae. NECK: No neck mass, no carotid bruits, no JVD. CHEST: No deformities. LUNGS: Clear breath sounds, no wheezing, no crackles. HEART: Normal sinus rhythm. No murmur, no gallops, no rubs. ABDOMEN: Globular, soft, nontender, no masses. EXTREMITIES: No edema, no deformities. MEDICATIONS: Of 11/18/2017 reviewed. LABORATORY: Of 11/17/2017, hemoglobin 8.8, hematocrit 25.9. On 11/18/2017, glucose 98. On 11/17/2017, BUN 21, creatinine 4.13. ASSESSMENT AND PLAN: 1. End-stage renal disease, stable. We will continue current heparin for hemodialysis. Attempted 2 liters fluid removal as tolerated. No changes will be made with the current dialysis bath. 2. Anemia - weekly Epogen. 3. Recent status post gastrointestinal bleed - the patient is status post upper GI endoscopy with fi nding of small ulcers. No active bleeding was noted. As per recommendation by GI, repeat upper GI e ndoscopy in about 2 months. Overall, I agree with current management. Recheck basic metabolic and C BC in a.m.
[2017-11-18 10:42] LABS: INR-International Normal Ratio 1.3; Prothrombin Time 16.4 SEC (12.0-14.7)
--- NOTE | 2017-11-18 13:37 | PDOC.PN ---
- Subjective Encounter Start Date: 11/18/17 Encounter Start Time: 08:00 Pt seen for followup re: GI bleed. No complaints today. - Objective Resuscitation Status: Resuscitation Status FULL:Full Resuscitation MAR Reviewed: Yes Vital Signs & Weight: Vital Signs (12 hours) Temp Pulse Resp BP Pulse Ox 11/18/17 08:31 98.2 F 82 18 114/75 95 11/18/17 08:00 98.2 F 82 18 11/18/17 06:00 98.5 F 82 18 110/50 L 100 11/18/17 03:38 98.5 F 82 18 100/62 97 Weight Weight 215 lb I&O: 11/17/17 11/18/17 11/19/17 06:59 06:59 06:59 Intake Total 492 1290 Output Total 600 Balance -108 1290 Result Diagrams: 11/17/17 05:07 11/17/17 05:07 Additional Labs: Accuchecks 11/18/17 11/18/17 11/17/17 07:04 06:47 19:57 POC Glucose 98 97 121 H 11/17/17 11/17/17 16:48 12:38 POC Glucose 91 90 Phys Exam - Physical Examination Morbid obesity HEENT: moist MMs Neck: supple Respiratory: clear to auscultation bilateral Cardiovascular: RRR Gastrointestinal: soft Neurological: moves all 4 limbs Psychiatric: normal affect Dx/Plan (1) GI bleed Code(s): K92.2 - GASTROINTESTINAL HEMORRHAGE, UNSPECIFIED Status: Acute (2) Diastolic dysfunction Code(s): I51.9 - HEART DISEASE, UNSPECIFIED Status: Chronic (3) DM2 (diabetes mellitus, type 2) Status: Chronic Qualifiers: Diabetes mellitus complication status: with kidney complications Chronic kidney disease stage: on chronic dialysis (4) ESRD on dialysis Code(s): N18.6 - END STAGE RENAL DISEASE; Z99.2 - DEPENDENCE ON RENAL DIALYSIS Status: Chronic (5) Hypertension Code(s): I10 - ESSENTIAL (PRIMARY) HYPERTENSION Status: Chronic Qualifiers: Hypertension type: essential hypertension Qualified Code(s): I10 - Essential (primary) hypertension - Plan * . Pt's episode of PE appears to have been in 2012. Unclear whether she needs ongoing anticoagulation (she thinks she only had one episode). Attempted to contact PCP, but PCP not in clinic today. If pt is discharged over the weekend, will advise pt to hold anticoagulation and followup with PCP. Dialysis per nephrology service. Monitor vitals, titrate antihypertensives as needed. Review of Systems - Review of Systems Gastrointestinal: negative: Nausea, Vomiting, Abdominal Pain, Diarrhea, Constipation, Melena, Hematochezia Genitourinary: negative: Dysuria, Frequency, Incontinence, Hematuria, Retention - Medications/Allergies Allergies/Adverse Reactions: Allergies Allergy/AdvReac Type Severity Reaction Status Date / Time No Known Drug Allergies Allergy Unknown Verified 04/20/16 14:54 Medications: Current Medications Acetaminophen (Tylenol) 650 mg PO Q6H PRN PRN Reason: Headache/Fever or Pain Last Admin: 11/17/17 05:31 Dose: 650 mg Allopurinol (Zyloprim) 100 mg PO DAILY [facility] Anastrozole (Arimidex) 1 mg PO DAILY [facility] Atorvastatin Calcium (Lipitor) 10 mg PO [facility] Last Admin: 11/17/17 20:01 Dose: 10 mg Carvedilol (Coreg) 3.125 mg PO SuTuThSa@0900 [facility] Cinacalcet (Sensipar) 30 mg PO DAILY [facility] Dextrose/Water (Dextrose 50%) 25 gm SLOW IVP PRN PRN PRN Reason: Hypoglycemia Epoetin Philippe (Procrit) 10,000 units SC Q7D [facility] Last Admin: 11/16/17 21:01 Dose: 10,000 units Gabapentin (Neurontin) 300 mg PO TID [facility] Last Admin: 11/17/17 20:01 Dose: 300 mg Glucagon (Glucagon) 1 mg IM PRN PRN PRN Reason: Hypoglycemia Dextrose/Water (D5w) 1,000 mls @ 0 mls/hr IV .Q0M PRN; As Directed PRN Reason: Hypoglycemia Sodium Chloride (Normal Saline 0.9%) 1,000 mls @ 30 mls/hr IV .Q24H [facility] Last Admin: 11/18/17 08:05 Dose: 1,000 mls Insulin Human Lispro (Humalog) 0 units SC .MILD SLIDING SCALE PRN PRN Reason: Mild Correctional Scale Lactulose (Lactulose) 3.33 gm PO [facility] Last Admin: 11/17/17 20:02 Dose: 3.33 gm Nitroglycerin (Nitrostat) 0.4 mg SL ASDIR PRN PRN Reason: Chest Pain Ondansetron HCl (Zofran) 4 mg IVP Q6H PRN PRN Reason: Nausea/Vomiting Pantoprazole Sodium (Protonix) 40 mg IVP Q12HR [facility] Last Admin: 11/17/17 20:02 Dose: 40 mg Sertraline HCl (Zoloft) 50 mg PO DAILY [facility] Last Admin: 11/17/17 08:11 Dose: 50 mg Sevelamer Carbonate (Renvela) 1,600 mg PO TID-WM [facility] Last Admin: 11/17/17 16:37 Dose: 1,600 mg Sodium Chloride (Flush - Normal Saline) 10 ml IVF Q12HR [facility] Last Admin: 11/18/17 08:05 Dose: 10 ml Sodium Chloride (Flush - Normal Saline) 10 ml IVF PRN PRN PRN Reason: Saline Flush Vitamin B Complex/Vit C/Folic Acid (Nephro-Kamala Tablet) 1 tab PO DAILY [facility] Last Admin: 11/17/17 08:11 Dose: 1 tab
[2017-11-18] MEDS: Folic Acid/Vit B Comp W-C PO SCH (14:08)
[2017-11-18] MEDS: Cinacalcet HCl 30 MG TAB PO SCH (14:08)
[2017-11-18] MEDS: Gabapentin 300 MG CAP PO SCH ×3 (14:08→20:22)
[2017-11-18] MEDS: Allopurinol 100 MG TAB PO SCH (14:09)
[2017-11-18] MEDS: Sevelamer Carbonate 800 MG TAB PO SCH ×2 (14:12→16:30)
[2017-11-18] MEDS: Anastrozole 1 MG TAB PO SCH (14:12)
[2017-11-18] MEDS: Pantoprazole 40 MG VIAL IVP SCH (14:13)
[2017-11-18] MEDS: Acetaminophen 325 MG TAB PO PRN ×2 (16:30→22:22)
[2017-11-18] MEDS: Atorvastatin Calcium 10 MG TAB PO SCH (20:22)
--- NOTE | 2017-11-18 23:01 | PRG ---
DATE OF SERVICE: 11/18/2017 REASON FOR CONSULTATION: GI bleeding. SUBJECTIVE: Overnight, the patient did not have any acute problems or complaints. She did undergo E GD yesterday with the finding of multiple discrete gastric ulcerations. However, since the procedure , she has not complained of any additional hematemesis nor melena. Currently, denies any nausea, vom iting, fevers, chills, abdominal pain, diarrhea, or constipation. OBJECTIVE: VITAL SIGNS: Temperature 98.8, pulse 83, blood pressure 103/54, respiratory rate 20, satting 98% on room air. GENERAL: Patient is lying in bed, in no acute distress. She is alert and oriented x4. HEENT: No JVD noted. NECK: Supple. CARDIOVASCULAR: Regular rate and rhythm with no discernible murmurs, gallops, or rubs. RESPIRATORY: Clear to auscultation bilaterally with no discernible wheezes or rales. ABDOMEN: Obese abdomen, soft, nontender, nondistended, normoactive bowel sounds. EXTREMITIES: No cyanosis, clubbing or edema. LABORATORY DATA: No current laboratory data is available for review. IMAGING DATA: EGD performed on 11/17/2017 showing the presence of multiple gastric ulcerations as we ll as superficial duodenal bulb ulcerations all of which were clean based without any high-risk stigm heath of active/recent bleeding. ASSESSMENT AND PLAN: The patient is a 77-year-old female with past medical history of diabetes, rosi estive heart failure, end-stage renal disease on dialysis, pulmonary embolism, DVT on chronic anticoa gulation, breast cancer, hypertension, hyperlipidemia, anemia of chronic disease, and chronic abdomin al pain presenting with complaints of hematemesis/melena. Hematemesis/melena: The patient was initially admitted to the hospital with increased periumbilical discomfort as well as 1-2 episodes of coffee ground emesis while on anticoagulation therapy. She sub sequently underwent an EGD on 11/17/2017, which showed multiple superficial ulcerations within the ga s in the stomach and proximal small bowel; however, all ulcerations were clean based without any high -risk stigmata of active/recent bleeding. Given the endoscopic findings from the EGD performed yeste rday, these ulcerations are at low likelihood of rebleeding within the next 48-72 hours. However, th e etiology of these ulcerations is yet unknown. Biopsies were obtained during the endoscopic evaluat ion, which should shed further light on the etiology of these ulcerations. However, she did admit to taking NSAIDs an outpatient, which could potentially contribute to the current clinical picture. RECOMMENDATIONS: 1. Continue to trend H and H and transfuse as necessary to maintain an H and H of 7/21. 2. We would continue to monitor clinically for further episodes of hematemesis or melena. 3. We would continue PPI b.i.d. given presence of gastric ulcers. 4. We would recommend repeat EGD in approximately 8-12 weeks for re-evaluation of the gastric ulcera tions and confirmation of healing. We will continue to follow. Please call with any questions.
[2017-11-19 06:00] LABS: #Eosinphils 0.3 thou/uL (0.0-0.7); #Lymphocytes 1.4 thou/uL (1.20-3.40); #Monocytes 0.5 thou/uL (0.11-0.59); #Neutrophils 4.1 thou/uL (1.40-6.50); %Basophils 0.6 % (0.0-1.0); %Eosinophils 4.3 % (0.0-10.0); %Lymphocytes 21.5 % (21.0-51.0); %Monocytes 8.5 % (0.0-10.0); %Neutrophils 65.2 % (42.0-75.0); Hemoglobin 8.8 g/dL (12.0-16.0); Mean Corpuscular HGB CONC 33.3 g/dL (32.0-36.0); Mean Corpuscular Hemoglobin 32.5 pg (27.0-31.0); Mean Corpuscular Volume 97.8 fl (81.0-99.0); Mean Platelet Volume 7.9 fL (7.4-10.4); Platelet Count 232 thou/uL (130-400); RBC Distribution Width 14.9 % (11.5-14.5); White Blood Cell (WBC) Count 6.3 thou/uL (4.8-10.8)
[2017-11-19 06:19] LABS: Anion Gap 8 mmol/L (10-20); BUN (Urea Nitrogen) 11 mg/dL (9.8-20.1); Calc. Creatinine Clearance 16 mL/min (70-130); Carbon Dioxide 32 mmol/L (23-31); Chloride 101 mmol/L (98-107); Estimated GFR-MDRD 12; Glucose 90 mg/dL (83-110); Potassium 3.7 mmol/L (3.5-5.1); Sodium 137 mmol/L (136-145)
[2017-11-19] MEDS ORDERED: Carvedilol 3.125 MG TAB PO SCH (09:00)
[2017-11-19] MEDS: Cinacalcet HCl 30 MG TAB PO SCH (09:35)
[2017-11-19] MEDS: Gabapentin 300 MG CAP PO SCH (09:35)
[2017-11-19] MEDS: Sevelamer Carbonate 800 MG TAB PO SCH ×2 (09:35→12:18)
[2017-11-19] MEDS: Allopurinol 100 MG TAB PO SCH (09:36)
[2017-11-19] MEDS: Folic Acid/Vit B Comp W-C PO SCH (09:36)
[2017-11-19] MEDS: Anastrozole 1 MG TAB PO SCH (10:00)
--- NOTE | 2017-11-19 11:52 | PRG ---
DATE OF SERVICE: 11/19/2017 SERVICE: Renal Medicine. SUBJECTIVE: Ms. Ansari is a 77-year-old black female with ESRD and currently on maintenance hemodialy sis. Tolerating hemodialysis. She received dialysis yesterday with fluid removal. No new complaint s today. Please note, this patient was admitted for GI bleed. Upper GI endoscopy showed no active b leeding. Currently, the patient is stable and asymptomatic. Her anticoagulation has been discontinu ed. This was said to have been given for a case of deep venous thrombosis and pulmonary embolism. C ase discussed with Dr. Umana. The plan is to completely discontinue the anticoagulation since she perez s received this for several months already for her pulmonary embolism. No new complaints today. PHYSICAL EXAMINATION: VITAL SIGNS: Blood pressure 106/65, heart rate 77, respiratory rate 14, temperature 98.6, pulse ox 1 00%. GENERAL: Awake, supine, comfortable, morbidly obese. SKIN: Adequate turgor. HEENT: Slightly pale conjunctivae, anicteric sclerae. NECK: No neck mass, no carotid bruits, no JVD. CHEST: No deformities. LUNGS: Clear breath sounds. No wheezing, no crackles. HEART: Normal sinus rhythm. No murmur, no gallops or rubs. ABDOMEN: Globular, soft, nontender, no masses. EXTREMITIES: No edema. MEDICATIONS: Of 11/19/2017 was reviewed. LABORATORY DATA: Of 11/19/2017, white count 6.3, hemoglobin 8.8. Sodium 137, potassium 3.7, chlorid e 101, carbon dioxide 32, BUN 11, creatinine 4.4, glucose 90, calcium 8.0. ASSESSMENT AND PLAN: 1. End-stage renal disease, stable. Continue Tuesday, Tuesday, Tuesday dialysis. No indication for any dialytic intervention. 2. Status post gastrointestinal bleed, stabilizing. No active gastrointestinal bleed with upper GI endoscopy. I agree to hold off anticoagulation. Case discussed with Dr. Umana. 3. Anemia. Continue weekly Epogen, p.r.n. blood transfusion. From the renal point of view, the pat ient can be discharged anytime.
[2017-11-19 12:12] VITALS: TEMP 98.7
--- NOTE | 2017-11-19 13:02 | PDOC.PN ---
- Subjective Encounter Start Date: 11/19/17 Encounter Start Time: 08:00 Pt seen for followup re: GI bleed. No complaints today. - Objective Resuscitation Status: Resuscitation Status FULL:Full Resuscitation Vital Signs & Weight: Vital Signs (12 hours) Temp Pulse Resp BP Pulse Ox 11/19/17 11:05 98.7 F 76 14 95/63 97 11/19/17 07:21 98.8 F 83 20 100 11/19/17 07:00 98.6 F 77 14 106/65 100 Weight Weight 215 lb I&O: 11/18/17 11/19/17 11/20/17 06:59 06:59 06:59 Intake Total 1290 1070 Balance 1290 1070 Result Diagrams: 11/19/17 05:07 11/19/17 05:07 Additional Labs: Accuchecks 11/19/17 11/19/17 11/18/17 11:09 05:30 20:31 POC Glucose 111 H 91 120 H 11/18/17 16:48 POC Glucose 122 H Phys Exam - Physical Examination Constitutional: NAD HEENT: moist MMs Neck: supple Respiratory: clear to auscultation bilateral Cardiovascular: RRR Gastrointestinal: soft Neurological: moves all 4 limbs Psychiatric: normal affect Dx/Plan (1) GI bleed Code(s): K92.2 - GASTROINTESTINAL HEMORRHAGE, UNSPECIFIED Status: Acute (2) Diastolic dysfunction Code(s): I51.9 - HEART DISEASE, UNSPECIFIED Status: Chronic (3) DM2 (diabetes mellitus, type 2) Status: Chronic Qualifiers: Diabetes mellitus complication status: with kidney complications Chronic kidney disease stage: on chronic dialysis (4) ESRD on dialysis Code(s): N18.6 - END STAGE RENAL DISEASE; Z99.2 - DEPENDENCE ON RENAL DIALYSIS Status: Chronic (5) Hypertension Code(s): I10 - ESSENTIAL (PRIMARY) HYPERTENSION Status: Chronic Qualifiers: Hypertension type: essential hypertension Qualified Code(s): I10 - Essential (primary) hypertension - Plan out of bed/ambulate * . Hemoglobin is stable. Likely discharge home later today or tomorrow. Review of Systems - Review of Systems Respiratory: negative: Cough, Dry, Shortness of Breath, Hemoptysis, SOB with Excertion, Pleuritic Pain, Sputum, Wheezing Cardiovascular: negative: chest pain, palpitations, orthopnea, paroxysmal nocturnal dyspnea, edema, light headedness - Medications/Allergies Allergies/Adverse Reactions: Allergies Allergy/AdvReac Type Severity Reaction Status Date / Time No Known Drug Allergies Allergy Unknown Verified 04/20/16 14:54 Medications: Current Medications Acetaminophen (Tylenol) 650 mg PO Q6H PRN PRN Reason: Headache/Fever or Pain Last Admin: 11/18/17 22:22 Dose: 650 mg Allopurinol (Zyloprim) 100 mg PO DAILY [facility] Last Admin: 11/19/17 09:36 Dose: 100 mg Anastrozole (Arimidex) 1 mg PO DAILY [facility] Last Admin: 11/19/17 10:00 Dose: 1 mg Atorvastatin Calcium (Lipitor) 10 mg PO HS [facility] Last Admin: 11/18/17 20:22 Dose: 10 mg Carvedilol (Coreg) 3.125 mg PO SuTuThSa@0900 [facility] Last Admin: 11/19/17 09:36 Dose: 3.125 mg Cinacalcet (Sensipar) 30 mg PO DAILY [facility] Last Admin: 11/19/17 09:35 Dose: 30 mg Dextrose/Water (Dextrose 50%) 25 gm SLOW IVP PRN PRN PRN Reason: Hypoglycemia Epoetin Philippe (Procrit) 10,000 units SC Q7D [facility] Last Admin: 11/16/17 21:01 Dose: 10,000 units Gabapentin (Neurontin) 300 mg PO TID [facility] Last Admin: 11/19/17 09:35 Dose: 300 mg Glucagon (Glucagon) 1 mg IM PRN PRN PRN Reason: Hypoglycemia Dextrose/Water (D5w) 1,000 mls @ 0 mls/hr IV .Q0M PRN; As Directed PRN Reason: Hypoglycemia Insulin Human Lispro (Humalog) 0 units SC .MILD SLIDING SCALE PRN PRN Reason: Mild Correctional Scale Lactulose (Lactulose) 3.33 gm PO HS [facility] Last Admin: 11/18/17 20:23 Dose: 3.33 gm Nitroglycerin (Nitrostat) 0.4 mg SL ASDIR PRN PRN Reason: Chest Pain Ondansetron HCl (Zofran) 4 mg IVP Q6H PRN PRN Reason: Nausea/Vomiting Pantoprazole Sodium (Protonix) 40 mg PO BID [facility] Last Admin: 11/19/17 09:35 Dose: 40 mg Sertraline HCl (Zoloft) 50 mg PO DAILY [facility] Last Admin: 11/19/17 09:35 Dose: 50 mg Sevelamer Carbonate (Renvela) 1,600 mg PO TID-WM [facility] Last Admin: 11/19/17 12:18 Dose: 1,600 mg Sodium Chloride (Flush - Normal Saline) 10 ml IVF Q12HR [facility] Last Admin: 11/19/17 09:36 Dose: 10 ml Sodium Chloride (Flush - Normal Saline) 10 ml IVF PRN PRN PRN Reason: Saline Flush Vitamin B Complex/Vit C/Folic Acid (Nephro-Kamala Tablet) 1 tab PO DAILY [facility] Last Admin: 11/19/17 09:36 Dose: 1 tab
--- NOTE | 2017-11-19 15:03 | DIS ---
DATE OF ADMISSION: 11/16/2017 DATE OF DISCHARGE: 10/19/2017 PRIMARY CARE PHYSICIAN: Neela Hugo M.D. DISCHARGE DIAGNOSES: 1. Acute blood loss anemia. 2. EGD on 11/17/2017, which showed multiple scattered small ulcerations in the distal gastric body, gastric antrum, duodenal bulb without any high risk stigmata or evidence of active/recent bleeding. 3. Hematemesis and melena. CONDITION OF PATIENT ON THE DAY OF DISCHARGE: Stable. I assessed Ms. Ansari on the day of the discha rge. Please refer to my daily progress note for further information regarding this face to face-to-f neftaly encounter. HOSPITAL COURSE: Ms. Ansari is a pleasant 77-year-old lady who was admitted to [facility] on 11/16/2017 for anemia due to acute blood loss from hematemesis and melena. She was se en by Gastroenterology and Nephrology services. She had maintenance hemodialysis. She had EGD study with findings as described above. She has been started on b.i.d. PPI. I should note that prior to this admission, she was on warfarin. At the time of admission, she had an INR of 4.2. Warfarin was discontinued. She has been advised to hold off on warfarin and discuss with her primary care marcosi an if she needs to start warfarin. She told me that she only had one episode of pulmonary embolism a nd that was in 2012. It is possible that she may be able to discontinue her warfarin. She is being discharged home in a stable condition. DISCHARGE MEDICATIONS: Include Tylenol p.r.n., allopurinol 100 mg daily, Arimidex 1 mg daily, Lipit or 10 mg at bedtime, Coreg 3.125 mg as directed, Sensipar 30 mg daily, multivitamins with folic acid 1 tablet daily, gabapentin 300 mg 3 times a day, [place] 3 times a day, NPH insulin as directed, lactul ose one teaspoon at bedtime, nitroglycerin p.r.n., Protonix 40 mg 2 times a day, sertraline 50 mg tim ly, Renvela 1600 mg 3 times a day. CONSULTATIONS DURING THIS HOSPITALIZATION: Gastroenterology, Dr. Soares and Nephrology, Dr. Mcqueen. Many thanks for allowing me to participate in your patient's care. Please feel free to contact me wi th any questions or concerns. On the day of discharge, she has a white count of 6300, hemoglobin 8.8 , normal sodium, normal potassium, and creatinine 4.40. DISCHARGE DESTINATION: Home. TOTAL AMOUNT OF TIME SPENT COORDINATING THIS DISCHARGE: 32 minutes.
[2017-11-19 16:04] VITALS: BP 121/80
--- NOTE | 2017-12-10 12:07 | EKG ---
Test Reason : FACILITATE DIAGNOSIS Blood Pressure : / mmHG Vent. Rate : 083 BPM Atrial Rate : 083 BPM P-R Int : 138 ms QRS Dur : 078 ms QT Int : 380 ms P-R-T Axes : 020 -02 050 degrees QTc Int : 446 ms Normal sinus rhythm Nonspecific T wave abnormality Left axis deviation Abnormal ECG Confirmed by CALLIE ROBERTO, SOFIA Mesa ([id number]), art editor CHRISTIANO CASE ([id number]) on 12/10/2017 12:07:24 PM Referred By: Confirmed By:SOFIA LEDESMA MD
== END 2017-11-19 16:01 | disposition home or self-care (01) | DRG 377 ==
LOC: ERS 22:03 → ERHOLD 23:23 → 2NO 11-16 12:20 → T4-A 11-17 16:04
PROVIDERS: ADMIT Internal Medicine Infectious Disease; ATTEND Internal Medicine Infectious Disease
PROC: 5A1D70Z Performance of Urinary Filtration, Intermittent, Less than 6 Hours Per Day (ICD-10-PCS; 2017-11-16)
PROC: 30233N1 Transfusion of Nonautologous Red Blood Cells into Peripheral Vein, Percutaneous Approach (ICD-10-PCS; 2017-11-16)
PROC: 0DB68ZX Excision of Stomach, Via Natural or Artificial Opening Endoscopic, Diagnostic (ICD-10-PCS; principal; 2017-11-17)
PROC: 5A1D70Z Performance of Urinary Filtration, Intermittent, Less than 6 Hours Per Day (ICD-10-PCS; 2017-11-18)
DX: K25.4 Chronic or unspecified gastric ulcer with hemorrhage (principal); N18.6 End stage renal disease; I13.2 Hypertensive heart and chronic kidney disease with heart failure and with stage 5 chronic kidney disease, or end stage renal disease; E11.22 Type 2 diabetes mellitus with diabetic chronic kidney disease; E66.01 Morbid (severe) obesity due to excess calories; I50.32 Chronic diastolic (congestive) heart failure; D62 Acute posthemorrhagic anemia; Z68.41 Body mass index [BMI] 40.0-44.9, adult; K26.4 Chronic or unspecified duodenal ulcer with hemorrhage; G89.29 Other chronic pain; Z99.2 Dependence on renal dialysis; Z86.711 Personal history of pulmonary embolism; Z86.718 Personal history of other venous thrombosis and embolism; Z85.3 Personal history of malignant neoplasm of breast; Z90.13 Acquired absence of bilateral breasts and nipples; Z79.01 Long term (current) use of anticoagulants; Z79.4 Long term (current) use of insulin; Z79.899 Other long term (current) drug therapy; Z96.651 Presence of right artificial knee joint
CPT/HCPCS: 36415; 36416; 36430; 80048; 80053; 82941; 83036; 83735; 84484; 85014; 85018; 85025; 85610; 85730; 86850; 86900; 86901; 87340; 88305; 88312; 90935; 93005; 94760; 96365; 96366; 96375; 96376; A4216; C9113; G0257; J2270; J2704; J3430; J7050; P9016; Q4081

== ENCOUNTER 2018-03-13 19:53 | Inpatient (IN) | payer MEDICARE, MEDICAID ==
[2018-03-13 20:56] LABS: CKMB 1.2 ng/mL (0-6.6); Troponin I 0.012 ng/mL (< 0.028)
--- NOTE | 2018-03-13 21:21 | RAD ---
RADIOGRAPH CHEST 1 VIEW: HISTORY: Acute left-sided chest pain in a 77-year-old female. FINDINGS: There are no air space densities, pulmonary edema, pneumothorax, or cardiomegaly. The lateral costop hrenic angles are sharp. IMPRESSION: No acute cardiopulmonary findings. faby [] POS: ZEYNEP
[2018-03-13] MEDS ORDERED: Nitroglycerin 0.4 MG TAB (25 Tab Bottle) PO PRN (23:19)
[2018-03-13] MEDS ORDERED: Ondansetron ODT 4 MG TAB PO PRN (23:19)
[2018-03-13] MEDS ORDERED: Acetaminophen 325 MG TAB PO PRN (23:19)
[2018-03-13] MEDS ORDERED: HumaLOG 300 UNITS/3 ML VIAL SC PRN ×2 (23:46)
[2018-03-13] MEDS ORDERED: Dextrose 50% Abboject 50 ML SYRINGE SLOW IVP PRN (23:46)
[2018-03-13] MEDS ORDERED: Dextrose 5% in Water 1,000 ML IV PRN (23:46)
[2018-03-14 00:03] LABS: Troponin I 0.012 ng/mL (< 0.028)
[2018-03-14 00:09] VITALS: BMI 41.6
[2018-03-14] MEDS: HYDROcodone/Acetaminophen 5/325 mg Tablet PO PRN ×4 (00:14→22:13)
[2018-03-14] MEDS ORDERED: Gabapentin 300 MG CAP PO SCH (00:15)
[2018-03-14 02:19] LABS: #Basophils 0.1 thou/uL (0.0-0.2); #Eosinphils 0.1 thou/uL (0.0-0.7); #Lymphocytes 1.3 thou/uL (1.20-3.40); #Monocytes 0.5 thou/uL (0.11-0.59); #Neutrophils 5.6 thou/uL (1.40-6.50); %Basophils 0.7 % (0.0-1.0); %Eosinophils 1.2 % (0.0-10.0); %Lymphocytes 17.6 % (21.0-51.0); %Monocytes 6.4 % (0.0-10.0); %Neutrophils 74.1 % (42.0-75.0); Hemoglobin 11.4 g/dL (12.0-16.0); Mean Corpuscular HGB CONC 34.1 g/dL (32.0-36.0); Mean Corpuscular Hemoglobin 31.6 pg (27.0-31.0); Mean Corpuscular Volume 92.6 fl (81.0-99.0); Mean Platelet Volume 6.7 fL (7.4-10.4); Platelet Count 229 thou/uL (130-400); RBC Distribution Width 14.7 % (11.5-14.5); Red Blood Cell (RBC) Count 3.61 mill/uL (4.20-5.40); White Blood Cell (WBC) Count 7.5 thou/uL (4.8-10.8)
--- NOTE | 2018-03-14 02:21 | HP ---
DATE OF ADMISSION: 03/13/2018 CHIEF COMPLAINT: Chest pain and syncope. HISTORY OF PRESENT ILLNESS: This is a 77-year-old morbidly obese -[place] female with a know n history of end-stage renal disease on hemodialysis and recurrent chest pains and syncopes in the [address]. Patient at dialysis today and developed a sudden onset of chest pain in the left precordium radi ating with left arm associated with some nausea and she tried to get up from the chair. She was note d to have hypotension, low drop in the blood pressure and patient had a syncopal episode. Patient wa s immediately brought to the ER for further evaluation. She had an EKG, which was unremarkable. [facility] st x-ray was normal and the patient was admitted for further monitoring for cardiac enzymes and rulin g out cardiac disease. Patient is pretty drowsy at this time. She is alert. She denies having any chest pains. No nausea, no vomiting, no diarrhea, no constipation. PAST MEDICAL HISTORY: 1. Type 2, diabetes mellitus. 2. Chronic diastolic congestive heart failure, end-stage renal disease on hemodialysis Tuesday, , and Tuesday. 3. Pulmonary embolus. 4. History of deep vein thrombosis on Coumadin. 5. Breast cancer, status post bilateral mastectomy. 6. History of hypertension. 7. Chronic pain. 8. Hyperlipidemia. 9. Anemia of renal disease. PAST SURGICAL HISTORY: 1. History of bilateral mastectomy for breast cancer. 2. Right upper extremity fistula creation. HOME MEDICATIONS: Coumadin 12.5 mg every other day, Renvela 1600 mg p.o. t.i.d., lactulose, Levemir 20 units subcutaneous daily, Humalog, hydrocodone, Neurontin 300 mg p.o. t.i.d., Sensipar 30 mg p.o. daily, Coreg 6.25 mg p.o. daily, Lipitor 10 mg p.o. at bedtime, amitriptyline 50 mg p.o. at bedtime, allopurinol 100 mg p.o. daily, Tylenol as needed. ALLERGIES: No known drug allergies. FAMILY HISTORY: Significant for son with pulmonary embolus. Negative for history of clotting. SOCIAL HISTORY: Negative for smoking, alcohol, or illicit drug use. REVIEW OF SYSTEMS: All 10 systems are reviewed with the patient thoroughly and found to be negative at this time except for the ones except in the HPI: Constitutional: Weight loss or gain, sense of w ell-being, ability to conduct usual activities, exercise tolerance. Skin/Breast: Rash, itching, trin[place] nges in hair growth or loss, nail changes, breast lumps, tenderness, swelling, nipple discharge. Eye s: Vision, double vision, tearing, blind spots, pain. ENT/Mouth: Headaches (location, time of onse t, duration, precipitating factors), vertigo, lightheadedness, injury. Vision, double vision, tearing , blind spots, pain, nose bleeding, colds, obstruction, discharge, dental difficulties, gingival blee ding, dentures, neck stiffness, pain, tenderness, masses in thyroid or other areas. Cardiovascular: Precordial pain, substernal distress, palpitations, syncope, dyspnea on exertion, orthopnea, nocturn al paroxysmal dyspnea, edema, cyanosis, hypertension, heart murmurs, varicosities, phlebitis, claudic ation. Respiratory: Pain, shortness of breath, wheezing, stridor, cough, hemoptysis, fever or night sweats. Gastrointestinal: Poor appetite, dysphagia, indigestion, abdominal pain, heartburn, eructa tion, nausea, vomiting, hematemesis, jaundice, constipation, or diarrhea, abnormal stools (sandoval-color ed, tarry, bloody, greasy, foul smelling), flatulence, hemorrhoids, recent changes in bowel habits. Genitourinary: Urgency, frequency, dysuria, nocturia, hematuria, polyuria, oliguria, unusual (or trin[place] nge in) color of urine, stones, hesitancy, change in size of stream, dribbling, acute retention or in continence, libido, potency. Musculoskeletal: Pain, swelling, redness or heat of muscles or joints, limitation, of motion, muscular weakness, atrophy, cramps. Neurologic/Psychiatric: Convulsions, par alyses, tremor, incoordination, paresthesias, difficulties with memory of speech, sensory or motor di sturbances, or muscular coordination (ataxia, tremor), emotional problems, anxiety, depression, previ ous psychiatric care, unusual perceptions, hallucinations. Allergy/Immunologic: Skin rash, anemia, bleeding tendency, polydipsia, polyuria, intolerance to heat or cold. PHYSICAL EXAMINATION: VITAL SIGNS: Blood pressures are 155/70, heart rate of 73, respiration is 20, saturation 95% on room air. GENERAL: The patient is moderately built, morbidly obese. She is alert and oriented x3. HEENT: Atraumatic, normocephalic. PERRLA. Extraocular movements are intact. Oral mucosa is pink a nd moist. CARDIOVASCULAR: S1, S2 normal. No murmurs, rubs, or gallops. LUNGS: Bilateral air entry was equal. No wheezing, no crackles. ABDOMEN: Soft, nontender, no guarding, no rebound tenderness. Bowel sounds are normal. MUSCULOSKELETAL: No calf tenderness. No pedal edema. EXTREMITIES: No joint tenderness, no joint swelling. SKIN: No cyanosis, no erythema, no rash, no pallor. NEUROLOGIC: Cranial nerve examination II through XII intact. No focal deficits were noted. LABORATORY DATA: WBC is 6.4, hemoglobin is 12.1, hematocrit is 37.6, platelets are 273. Sodium 141, potassium 3.6, chloride is 95, BUN is 20, creatinine is 5.09. Chest x-ray was unremarkable. No evidence of an acute cardiopulmonary process. ASSESSMENT AND PLAN: 1. Acute coronary syndrome. 2. Acute syncope. 3. Hypotension. 4. Morbid obesity. 5. End-stage renal disease on hemodialysis. 6. Type 2, diabetes mellitus. PLAN: 1. Plan is to closely monitor this patient. The patient had a recent stress test, 6 months ago whic h was unremarkable, but patient had severe chest pain this time, followed by syncopal episode. It co uld also be related to hypotension secondary to hemodialysis. We will keep the patient n.p.o. in the morning and plan for nuclear stress test, but if the Cardiology decides not to do the stress test it can be held off. 2. Patient's hypotension has been resolved. Blood pressures are stable. We will closely monitor. 3. We will start the patient on aspirin and beta-rosio and continue to monitor. 4. Patient has end-stage renal disease on hemodialysis. Next dialysis will be on Tuesday. 5. Morbid obesity. I spent 75 minutes with this patient.
[2018-03-14 02:24] LABS: INR-International Normal Ratio 1.9; Prothrombin Time 22.5 SEC (12.0-14.7)
[2018-03-14 02:43] LABS: Troponin I 0.021 ng/mL (< 0.028)
[2018-03-14 02:44] LABS: Anion Gap 13 mmol/L (10-20); BUN (Urea Nitrogen) 27 mg/dL (9.8-20.1); Calc. Creatinine Clearance 11 mL/min (70-130); Calcium 8.3 mg/dL (7.8-10.44); Carbon Dioxide 37 mmol/L (23-31); Cardiac Risk 2.5 (Less than 4.5); Chloride 95 mmol/L (98-107); Cholesterol 114 mg/dl (< 200 Desired); Estimated GFR-MDRD 8; Glucose 205 mg/dL (83-110); HDL Cholesterol 45 mg/dL (>60 Neg Risk); LDL Cholesterol, Calculated 33 mg/dL; Potassium 3.8 mmol/L (3.5-5.1); Sodium 141 mmol/L (136-145); Triglycerides 179 mg/dL (Less than 150)
[2018-03-14] MEDS ORDERED: Famotidine 20 MG TAB PO SCH (09:00)
[2018-03-14] MEDS ORDERED: Heparin 5,000 UNITS/ML VIAL SC SCH (09:00)
[2018-03-14] MEDS: Allopurinol 100 MG TAB PO SCH (09:09)
[2018-03-14] MEDS: Sevelamer Carbonate 800 MG TAB PO SCH ×3 (09:09→17:31)
[2018-03-14] MEDS: Cinacalcet HCl 30 MG TAB PO SCH (09:09)
[2018-03-14] MEDS: Gabapentin 300 MG CAP PO SCH ×3 (09:09→21:02)
[2018-03-14] MEDS: Folic Acid/Vit B Comp W-C PO SCH (09:10)
[2018-03-14] MEDS: Anastrozole 1 MG TAB PO SCH (09:10)
[2018-03-14] MEDS: Aspirin 325 MG TAB PO SCH (09:10)
[2018-03-14] MEDS: HYDROcodone/Acetaminophen 10/325 mg Tablet PO SCH ×3 (09:14→21:02)
[2018-03-14] MEDS: Carvedilol 3.125 MG TAB PO SCH ×2 (10:16→21:02)
--- NOTE | 2018-03-14 12:58 | CON ---
DATE OF CONSULTATION: 03/14/2018 HISTORY OF PRESENT: The patient is a 77-year-old woman who presented after losing consciousness during dialysis and developed left-sided chest pain. The patient has a long history of chest pain. She has been admitted on several occasions with chest discomfort. She has undergone several stress tests. Most recently she was admitted in 08/2017. She underwent a Cardiolite stress test which revealed her to have normal left ventricular ejection fraction 62% with no evidence of ischemia. The patient continued to have left-sided chest pain. She states this responds to nitroglycerin tablets. The patient also has a history of syncope. She has previously lost consciousness, which was felt to be orthostatic. She was in her usual state of health when she underwent dialysis and developed left-sided chest discomfort and had been coughing then suddenly lost consciousness. The patient reported having left-sided chest discomfort radiating to her left arm. The patient received nitroglycerin tablets and her chest pain eventually resolved. The patient denies having any present chest discomfort. PAST MEDICAL HISTORY: 1. Hypertension. 2. Diabetes mellitus. 3. History of pulmonary embolism. 4. Hypertension. 5. Anemia. 6. She has a past history of breast carcinoma. PAST SURGICAL HISTORY: Bilateral mastectomies and a fistula. SOCIAL HISTORY: Nonsmoker. FAMILY HISTORY: No strong family history of coronary artery disease. MEDICATIONS: Coumadin 2 mg at bedtime, Coreg 3.125 daily, Lipitor 10 daily, Arimidex 1 mg daily, gabapentin 300 t.i.d., sertraline 50 daily, Protonix 40 b.i.d. REVIEW OF SYSTEMS: Ten point system otherwise is notable for pain in both legs , myalgias in both lower extremities. Ten-point system otherwise unremarkable. PHYSICAL EXAMINATION: GENERAL: Obese woman in no acute distress. VITAL SIGNS: Blood pressure was 122/66 sitting, 132/68 standing, 113/57 supine. NECK: No jugular venous distention. LUNGS: Lungs are clear to auscultation. CARDIOVASCULAR: Regular rate and rhythm, normal S1, S2, a 1/6 systolic murmur. ABDOMEN: Distended. EXTREMITIES: No edema. VASCULAR: Radial pulses are diminished bilateral. SKIN: Warm and dry. NEUROLOGIC: Nonfocal. LABORATORY: Her sodium was 141, potassium 3.8, chloride 95, bicarbonate 37, BUN 27, creatinine 6.4, troponin 0.021. Her white blood cell count is 7.5, hemoglobin 11.4, hematocrit 33.4, platelets are 229. INR is 1.9. Her EKG reveals her to have normal sinus rhythm, voltage criteria for LVH, prolonged QT interval. IMPRESSION: 1. Syncope, probably orthostatic. 2. Chest pain suggestive of angina. 3. Hypertension. 4. Diabetes mellitus. 5. End-stage renal disease. 6. History of pulmonary embolus. 7. History of breast carcinoma. 8. Obesity. This patient presents with chest pain suggestive of angina. I have recommended proceeding with a cardiac catheterization for definitive diagnosis. The risks involved with the procedure were explained to the patient who wished to proceed. PLAN: Proceed with cardiac catheterization. ELIZABETH
[2018-03-14] MEDS ORDERED: Acetaminophen 325 MG TAB PO PRN (15:28)
[2018-03-14] MEDS ORDERED: Nitroglycerin 0.4 MG TAB (25 Tab Bottle) SL PRN (15:28)
--- NOTE | 2018-03-14 15:31 | PDOC.PN ---
- Subjective Encounter Start Date: 03/14/18 Encounter Start Time: 08:20 Pt seen for followup re: chest pain. Denies chest pain, shortness of breath, fevers or chills. - Objective Resuscitation Status: Resuscitation Status FULL:Full Resuscitation MAR Reviewed: Yes Vital Signs & Weight: Vital Signs (12 hours) Temp Pulse Pulse Pulse Pulse Resp BP 03/14/18 10:49 98.3 F 71 12 03/14/18 09:50 03/14/18 08:50 75 84 115/60 03/14/18 07:50 98.5 F 74 12 03/14/18 07:45 75 80 82 101/36 L 03/14/18 07:25 98.5 F 74 12 03/14/18 05:00 98.0 F 77 18 BP BP BP BP BP BP Pulse Ox 03/14/18 10:49 123/61 92 L 03/14/18 09:50 122/66 132/68 113/57 L 03/14/18 08:50 130/62 03/14/18 07:50 03/14/18 07:45 150/73 H 138/64 03/14/18 07:25 124/58 L 93 L 03/14/18 05:00 102/50 L 94 L Weight Weight 220 lb 6.4 oz I&O: 03/13/18 03/14/18 03/15/18 06:59 06:59 06:59 Intake Total 200 360 Balance 200 360 Result Diagrams: 03/14/18 02:12 03/14/18 02:12 Additional Labs: Accuchecks 03/14/18 10:52 POC Glucose 101 EKG Reviewed by me: Yes (Tele: NSR) Phys Exam - Physical Examination Morbid obesity HEENT: moist MMs, sclera anicteric, oral pharynx no lesions, 2+ tonsils Neck: no nodes, no JVD, supple, full ROM Respiratory: no wheezing, no rales, no rhonchi, clear to auscultation bilateral Cardiovascular: RRR, no rub S1, S2 Gastrointestinal: soft, non-tender, positive bowel sounds distention Musculoskeletal: edema present Neurological: moves all 4 limbs Psychiatric: normal affect Deviation from normal: Oriented to person and place, not to time Dx/Plan (1) Chest pain Code(s): R07.9 - CHEST PAIN, UNSPECIFIED Status: Acute Comment: currently chest pain free. Monitor on tele. (2) DM2 (diabetes mellitus, type 2) Status: Chronic Qualifiers: Diabetes mellitus complication status: with kidney complications Chronic kidney disease stage: on chronic dialysis Comment: continue accuchecks, insulin sliding scale (3) ESRD on dialysis Code(s): N18.6 - END STAGE RENAL DISEASE; Z99.2 - DEPENDENCE ON RENAL DIALYSIS Status: Chronic Comment: dialysis per nephrology service (4) Hypertension Code(s): I10 - ESSENTIAL (PRIMARY) HYPERTENSION Status: Chronic Qualifiers: Hypertension type: essential hypertension Qualified Code(s): I10 - Essential (primary) hypertension Comment: Controlled and at goal (5) h/o Pulmonary embolism on coumadin Status: Chronic Comment: warfarin on hold for possible procedure - Plan * . Review of Systems - Review of Systems Constitutional: negative: fever, chills, sweats, weakness, malaise Cardiovascular: chest pain. negative: palpitations, orthopnea, paroxysmal nocturnal dyspnea, edema, light headedness Gastrointestinal: negative: Nausea, Vomiting, Abdominal Pain, Diarrhea, Constipation, Melena, Hematochezia Genitourinary: negative: Dysuria, Frequency, Incontinence, Hematuria, Retention Skin: negative: Rash, Lesions, Emiliano, Bruising Neurological: Other (light-headedness). negative: Weakness, Numbness, Incoordination, Change in Speech, Confusion, Seizures - Medications/Allergies Allergies/Adverse Reactions: Allergies Allergy/AdvReac Type Severity Reaction Status Date / Time No Known Drug Allergies Allergy Unknown Verified 03/13/18 23:52 Medications: Current Medications Acetaminophen (Tylenol) 650 mg PO Q4H PRN PRN Reason: Headache/Fever or Pain Acetaminophen (Tylenol) 650 mg PO Q4H PRN PRN Reason: Headache/Fever or Pain Hydrocodone Bitart/Acetaminophen ([place] 5/325) 1 tab PO Q4H PRN PRN Reason: Moderate Pain (4-6) Last Admin: 03/14/18 06:49 Dose: 1 tab Hydrocodone Bitart/Acetaminophen ([place] 10/325) 1 tab PO TID [facility] Last Admin: 03/14/18 09:14 Dose: Not Given Allopurinol (Zyloprim) 100 mg PO DAILY [facility] Last Admin: 03/14/18 09:09 Dose: 100 mg Anastrozole (Arimidex) 1 mg PO DAILY [facility] Last Admin: 03/14/18 09:10 Dose: 1 mg Aspirin (Aspirin) 325 mg PO DAILY [facility] Last Admin: 03/14/18 09:10 Dose: 325 mg Atorvastatin Calcium (Lipitor) 10 mg PO HS [facility] Carvedilol (Coreg) 3.125 mg PO BID [facility] Last Admin: 03/14/18 10:16 Dose: 3.125 mg Carvedilol (Coreg) 3.125 mg PO DAILY [facility] Cinacalcet (Sensipar) 30 mg PO DAILY [facility] Last Admin: 03/14/18 09:09 Dose: 30 mg Dextrose/Water (Dextrose 50%) 25 gm SLOW IVP PRN PRN PRN Reason: Hypoglycemia Gabapentin (Neurontin) 300 mg PO TID [facility] Last Admin: 03/14/18 09:09 Dose: 300 mg Glucagon (Glucagon) 1 mg IM PRN PRN PRN Reason: Hypoglycemia Heparin Sodium (Porcine) (Heparin) 5,000 units SC TID [facility] Dextrose/Water (D5w) 1,000 mls @ 0 mls/hr IV .Q0M PRN; As Directed PRN Reason: Hypoglycemia Insulin Human Lispro (Humalog) 0 units SC .MODERATE SLIDING SC PRN PRN Reason: Moderate Correctional Scale Insulin Human Lispro (Humalog) 0 units SC .BEDTIME SLIDING SC PRN PRN Reason: Bedtime Correctional Scale Nitroglycerin (Nitrostat) 0.4 mg PO Q5MIN PRN PRN Reason: Chest Pain Nitroglycerin (Nitrostat) 0.4 mg SL ASDIR PRN PRN Reason: Chest Pain Non-Formulary Medication (Lactulose [Lactulose]) 1 teaspoon PO HS PRN PRN Reason: Constipation Ondansetron HCl (Zofran Odt) 4 mg PO Q6H PRN PRN Reason: Nausea/Vomiting Last Admin: 03/14/18 06:50 Dose: 4 mg Pantoprazole Sodium (Protonix) 40 mg PO BID [facility] Last Admin: 03/14/18 09:09 Dose: 40 mg Sertraline HCl (Zoloft) 50 mg PO DAILY [facility] Last Admin: 03/14/18 09:10 Dose: 50 mg Sevelamer Carbonate (Renvela) 1,600 mg PO TID[facility] Last Admin: 03/14/18 13:19 Dose: 1,600 mg Vitamin B Complex/Vit C/Folic Acid (Nephro-Kamala Tablet) 1 tab PO DAILY [facility] Last Admin: 03/14/18 09:10 Dose: 1 tab
[2018-03-14] MEDS: Heparin 5,000 UNITS/ML VIAL SC SCH ×2 (15:34→21:01)
[2018-03-14] MEDS: Atorvastatin Calcium 10 MG TAB PO SCH (21:02)
[2018-03-15 08:18] LABS: #Eosinphils 0.2 thou/uL (0.0-0.7); #Lymphocytes 1.2 thou/uL (1.20-3.40); #Monocytes 0.4 thou/uL (0.11-0.59); #Neutrophils 3.2 thou/uL (1.40-6.50); %Eosinophils 4.7 % (0.0-10.0); %Lymphocytes 24.2 % (21.0-51.0); %Monocytes 8.4 % (0.0-10.0); %Neutrophils 61.8 % (42.0-75.0); Hemoglobin 11.7 g/dL (12.0-16.0); Mean Corpuscular HGB CONC 33.7 g/dL (32.0-36.0); Mean Corpuscular Hemoglobin 30.9 pg (27.0-31.0); Mean Corpuscular Volume 91.7 fL (78.0-98.0); Mean Platelet Volume 7.2 fL (7.4-10.4); Platelet Count 254 thou/uL (130-400); RBC Distribution Width 14.6 % (11.5-14.5); Red Blood Cell (RBC) Count 3.79 mill/uL (4.20-5.40); White Blood Cell (WBC) Count 5.1 thou/uL (4.8-10.8)
[2018-03-15 08:29] LABS: INR-International Normal Ratio 1.4; Prothrombin Time 17.2 SEC (12.0-14.7)
[2018-03-15 08:35] LABS: Anion Gap 15 mmol/L (10-20); BUN (Urea Nitrogen) 50 mg/dL (9.8-20.1); Calc. Creatinine Clearance 8 mL/min (70-130); Carbon Dioxide 34 mmol/L (23-31); Chloride 94 mmol/L (98-107); Estimated GFR-MDRD 5; Glucose 108 mg/dL (83-110); Potassium 4.3 mmol/L (3.5-5.1); Sodium 139 mmol/L (136-145)
[2018-03-15] MEDS: Sevelamer Carbonate 800 MG TAB PO SCH ×3 (08:53→17:10)
[2018-03-15] MEDS ORDERED: Famotidine 20 MG TAB PO SCH (09:00)
[2018-03-15] MEDS: HYDROcodone/Acetaminophen 10/325 mg Tablet PO SCH ×3 (09:27→20:21)
[2018-03-15] MEDS: Heparin 5,000 UNITS/ML VIAL SC SCH ×3 (09:27→20:21)
--- NOTE | 2018-03-15 09:58 | CON ---
DATE OF CONSULTATION: 03/15/2018 HISTORY OF PRESENT ILLNESS: Ms. Ansari is a 77-year-old black female with ESRD and admitted for chest pain with near syncopal episode. She has been evaluated by Cardiology and a planned cardiac cathete rization is contemplated for tomorrow. We are consulted for her maintenance hemodialysis. She is du e for dialysis today. I have made arrangements for dialysis with her. Currently the patient is asym ptomatic. She is feeling better. REVIEW OF SYSTEMS: No chest pain or shortness of breath, no nausea, no vomiting, no diarrhea or cons tipation, no syncopal episode, no productive cough, no fever or chills, no gross hematuria, no dysuri a, no urine frequency, no diarrhea, no melena, no hematemesis. Appetite and energy level is excellen t. Occasional joint pains. No new skin rash, no diplopia. Please note I was called in dialysis Tuesday and what they noted with her is she was somewhat sleepy, but never lost consciousness. MEDICATIONS: Tylenol 650 mg q.4. p.r.n., [place] 10/325 t.i.d. as needed, Zyloprim 100 mg once a day, Arimidex 1 mg daily, aspirin 325 mg daily, Lipitor 10 mg tab at bedtime, Coreg 3.125 mg p.o. b.i.d., Sensipar 30 mg tab once a day, gabapentin 300 mg p.o. t.i.d., furosemide 40 mg IV b.i.d., heparin 5 000 units subcu b.i.d., Humalog sliding scale, lovastatin 20 mg tab at bedtime, Zofran p.r.n., Proton ix 40 mg q.24 hours, Zoloft 50 mg daily, Renvela 800 mg 2 tabs t.i.d. with meals, vitamin B complex d ay, Coumadin as directed. PAST MEDICAL HISTORY: 1. End-stage renal disease, currently on maintenance hemodialysis. 2. History of morbid obesity. 3. Breast cancer in remission 4. Type 2 diabetes mellitus. 5. Status post PE/DVT. 6. Hypertension. 7. Chronic pain. 8. Hyperlipidemia. 9. Status post congestive heart failure. PAST SURGICAL HISTORY: 1. Status post colonoscopy. 2. Status post breast biopsy. 3. Status post bilateral mastectomy for breast cancer. 4. Status post right upper extremity AV fistula placement. 5. Status post laparoscopic cholecystectomy. 6. Status post cuffed dialysis catheter placement. 7. Status post right knee replacement. SOCIAL HISTORY: The patient is single, lives alone, lives in [place]. Five children. Education : 11th grade. No history of smoking, no alcohol use, no drug abuse. Status post blood transfusion. Sedentary lifestyle. ALLERGIES: None. TRAUMA: None. IMMUNIZATIONS: Up to date. HOSPITALIZATIONS: Please see past medical history. FAMILY HISTORY: Positive family history of ESRD. One sister on dialysis. PHYSICAL EXAMINATION: VITAL SIGNS: Blood pressure 105/51, heart rate 70, respiratory rate 16, temperature 98.3, pulse ox 9 4% on room air. GENERAL: Awake, alert, sitting comfortable, morbidly obese. SKIN: Adequate turgor. HEENT: She has pinkish conjunctivae, anicteric sclerae. NECK: No neck mass, no carotid bruits, no JVD. CHEST: No deformities. LUNGS: Clear breath sounds, no wheezing, no crackles. HEART: Normal sinus rhythm. No murmur, no gallops, no rubs. ABDOMEN: Globular, soft, nontender. No masses. EXTREMITIES: No edema, no deformities. LABORATORY: 03/14/2018 - White count 7.5, hemoglobin 11.4, sodium 141, potassium 3.8, chloride 95, c arbon dioxide 37, BUN 27, creatinine 6.47, glucose 205, calcium 8.3. 03/15/2018 - Glucose 101. 03/13/2018 - Chest x-ray shows no acute cardiopulmonary findings. 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 ASSESSMENT AND PLAN: 1. End-stage renal disease, stable. We will continue current hemodialysis of Tuesday, Tuesday, Tue. Review of the last Kt/V suggests she is adequately dialyzed with the current dialysis regimen. Her Kt/V is noted to be adequate. My suggestion is to hold off her IV Lasix. 2. Sleepiness - I suspect this is related to her gabapentin. The plan is to discontinue these tempo rarily. 3. Chest pain - Cardiology consulted. Plan is a cardiac catheterization tomorrow? I agree with current management. Recheck base met and CBC in a.m.
--- NOTE | 2018-03-15 10:50 | PDOC.PN ---
- Subjective Encounter Start Date: 03/15/18 Encounter Start Time: 07:20 Pt seen for followup re: chest pain. Denies chest pain, shortness of breath, fevers or chills. - Objective MAR Reviewed: Yes Vital Signs & Weight: Vital Signs (12 hours) Temp Pulse Resp BP BP Pulse Ox 03/15/18 08:09 94 L 03/15/18 08:04 98.3 F 70 16 105/51 L 94 L 03/15/18 04:00 97.8 F 72 20 121/54 L 94 L I&O: 03/14/18 03/15/18 03/16/18 06:59 06:59 06:59 Intake Total 560 Balance 560 Result Diagrams: 03/15/18 07:53 03/15/18 07:53 Additional Labs: Accuchecks 03/15/18 03/14/18 03/14/18 06:15 21:06 17:27 POC Glucose 101 112 H 91 EKG Reviewed by me: Yes (Tele: NSR) Phys Exam - Physical Examination Morbid obesity HEENT: moist MMs, sclera anicteric, oral pharynx no lesions, 2+ tonsils Neck: no nodes, no JVD, supple, full ROM Respiratory: no wheezing, no rales, no rhonchi, clear to auscultation bilateral Cardiovascular: RRR, no rub S1, S2 Gastrointestinal: soft, non-tender, positive bowel sounds distention Musculoskeletal: edema present Neurological: moves all 4 limbs Psychiatric: normal affect, A&O x 3 Dx/Plan (1) Chest pain Code(s): R07.9 - CHEST PAIN, UNSPECIFIED Status: Acute Comment: Monitor on tele. Pt to have cath tomorrow (2) DM2 (diabetes mellitus, type 2) Status: Chronic Qualifiers: Diabetes mellitus complication status: with kidney complications Chronic kidney disease stage: on chronic dialysis Comment: controlled, continue accuchecks, insulin sliding scale (3) ESRD on dialysis Code(s): N18.6 - END STAGE RENAL DISEASE; Z99.2 - DEPENDENCE ON RENAL DIALYSIS Status: Chronic Comment: dialysis per nephrology service (4) Hypertension Code(s): I10 - ESSENTIAL (PRIMARY) HYPERTENSION Status: Chronic Qualifiers: Hypertension type: essential hypertension Qualified Code(s): I10 - Essential (primary) hypertension Comment: Controlled and at goal (5) h/o Pulmonary embolism on coumadin Status: Chronic Comment: warfarin on hold for possible procedure tomorrow, follow INRs - Plan * . Review of Systems - Review of Systems Constitutional: negative: fever, chills, sweats, weakness, malaise Respiratory: negative: Cough, Shortness of Breath, SOB with Excertion, Pleuritic Pain, Wheezing Cardiovascular: negative: chest pain, palpitations, orthopnea, paroxysmal nocturnal dyspnea, edema, light headedness Gastrointestinal: negative: Nausea, Vomiting, Abdominal Pain, Diarrhea, Constipation, Melena, Hematochezia Genitourinary: negative: Dysuria, Frequency, Incontinence, Hematuria, Retention Skin: negative: Rash, Lesions, Emiliano, Bruising - Medications/Allergies Allergies/Adverse Reactions: Allergies Allergy/AdvReac Type Severity Reaction Status Date / Time No Known Drug Allergies Allergy Unknown Verified 03/13/18 23:52 Medications: Current Medications Acetaminophen (Tylenol) 650 mg PO Q4H PRN PRN Reason: Headache/Fever or Pain Hydrocodone Bitart/Acetaminophen ([place] 5/325) 1 tab PO Q4H PRN PRN Reason: Moderate Pain (4-6) Last Admin: 03/14/18 22:13 Dose: 1 tab Hydrocodone Bitart/Acetaminophen ([place] 10/325) 1 tab PO TID [facility] Last Admin: 03/15/18 09:27 Dose: 1 tab Allopurinol (Zyloprim) 100 mg PO DAILY [facility] Last Admin: 03/14/18 09:09 Dose: 100 mg Anastrozole (Arimidex) 1 mg PO DAILY [facility] Last Admin: 03/14/18 09:10 Dose: 1 mg Aspirin (Aspirin) 325 mg PO DAILY [facility] Last Admin: 03/14/18 09:10 Dose: 325 mg Atorvastatin Calcium (Lipitor) 10 mg PO HS [facility] Last Admin: 03/14/18 21:02 Dose: 10 mg Carvedilol (Coreg) 3.125 mg PO BID [facility] Last Admin: 03/14/18 21:02 Dose: 3.125 mg Carvedilol (Coreg) 3.125 mg PO SuTuThSa@2100 [facility] Cinacalcet (Sensipar) 30 mg PO DAILY [facility] Last Admin: 03/14/18 09:09 Dose: 30 mg Dextrose/Water (Dextrose 50%) 25 gm SLOW IVP PRN PRN PRN Reason: Hypoglycemia Glucagon (Glucagon) 1 mg IM PRN PRN PRN Reason: Hypoglycemia Heparin Sodium (Porcine) (Heparin) 5,000 units SC TID [facility] Last Admin: 03/15/18 09:27 Dose: 5,000 units Dextrose/Water (D5w) 1,000 mls @ 0 mls/hr IV .Q0M PRN; As Directed PRN Reason: Hypoglycemia Insulin Human Lispro (Humalog) 0 units SC .MODERATE SLIDING SC PRN PRN Reason: Moderate Correctional Scale Insulin Human Lispro (Humalog) 0 units SC .BEDTIME SLIDING SC PRN PRN Reason: Bedtime Correctional Scale Lactulose (Lactulose) 20 gm PO HS PRN PRN Reason: CONSTIPATION Nitroglycerin (Nitrostat) 0.4 mg PO Q5MIN PRN PRN Reason: Chest Pain Nitroglycerin (Nitrostat) 0.4 mg SL ASDIR PRN PRN Reason: Chest Pain Ondansetron HCl (Zofran Odt) 4 mg PO Q6H PRN PRN Reason: Nausea/Vomiting Last Admin: 03/14/18 06:50 Dose: 4 mg Pantoprazole Sodium (Protonix) 40 mg PO BID [facility] Last Admin: 03/14/18 21:02 Dose: 40 mg Sertraline HCl (Zoloft) 50 mg PO DAILY [facility] Last Admin: 03/14/18 09:10 Dose: 50 mg Sevelamer Carbonate (Renvela) 1,600 mg PO TID[facility] Last Admin: 03/15/18 08:53 Dose: Not Given Vitamin B Complex/Vit C/Folic Acid (Nephro-Kamala Tablet) 1 tab PO DAILY [facility] Last Admin: 03/14/18 09:10 Dose: 1 tab
[2018-03-15] MEDS ORDERED: Communication Order-Pharmacy FS SCH (13:00)
[2018-03-15] MEDS: Carvedilol 3.125 MG TAB PO SCH ×2 (14:09→20:20)
[2018-03-15] MEDS: Anastrozole 1 MG TAB PO SCH (15:22)
[2018-03-15] MEDS: Folic Acid/Vit B Comp W-C PO SCH (15:22)
[2018-03-15] MEDS: Aspirin 325 MG TAB PO SCH (15:22)
[2018-03-15] MEDS: Allopurinol 100 MG TAB PO SCH (15:22)
[2018-03-15] MEDS: Cinacalcet HCl 30 MG TAB PO SCH (15:22)
[2018-03-15] MEDS: Atorvastatin Calcium 10 MG TAB PO SCH (20:20)
[2018-03-16 05:31] LABS: INR-International Normal Ratio 1.2
[2018-03-16 05:35] LABS: #Basophils 0.1 thou/uL (0.0-0.2); #Eosinphils 0.4 thou/uL (0.0-0.7); #Lymphocytes 2.1 thou/uL (1.20-3.40); #Monocytes 0.7 thou/uL (0.11-0.59); #Neutrophils 4.1 thou/uL (1.40-6.50); %Lymphocytes 28.3 % (21.0-51.0); %Monocytes 9.1 % (0.0-10.0); %Neutrophils 56.6 % (42.0-75.0); Hemoglobin 12.7 g/dL (12.0-16.0); Mean Corpuscular HGB CONC 32.9 g/dL (32.0-36.0); Mean Corpuscular Volume 94.2 fL (78.0-98.0); Mean Platelet Volume 7.6 fL (7.4-10.4); Platelet Count 267 thou/uL (130-400); RBC Distribution Width 14.6 % (11.5-14.5); Red Blood Cell (RBC) Count 4.09 mill/uL (4.20-5.40); White Blood Cell (WBC) Count 7.3 thou/uL (4.8-10.8)
[2018-03-16 05:44] LABS: Anion Gap 16 mmol/L (10-20); BUN (Urea Nitrogen) 31 mg/dL (9.8-20.1); Calc. Creatinine Clearance 12 mL/min (70-130); Calcium 8.2 mg/dL (7.8-10.44); Carbon Dioxide 28 mmol/L (23-31); Chloride 97 mmol/L (98-107); Estimated GFR-MDRD 8; Glucose 95 mg/dL (83-110); Potassium 4.3 mmol/L (3.5-5.1); Sodium 137 mmol/L (136-145)
[2018-03-16] MEDS ORDERED: Lidocaine 1% (PF) 30 ML VIAL ONE (06:33)
[2018-03-16] MEDS: Allopurinol 100 MG TAB PO SCH (06:46)
[2018-03-16] MEDS: Aspirin 325 MG TAB PO SCH (06:46)
[2018-03-16] MEDS: Anastrozole 1 MG TAB PO SCH (06:46)
[2018-03-16] MEDS: Folic Acid/Vit B Comp W-C PO SCH (06:47)
[2018-03-16] MEDS: Cinacalcet HCl 30 MG TAB PO SCH (06:47)
[2018-03-16] MEDS: Carvedilol 3.125 MG TAB PO SCH ×3 (07:24→20:56)
[2018-03-16] MEDS: Sevelamer Carbonate 800 MG TAB PO SCH ×3 (07:43→18:14)
[2018-03-16] MEDS: Heparin 5,000 UNITS/ML VIAL SC SCH ×3 (07:43→20:59)
--- NOTE | 2018-03-16 07:56 | PRG ---
DATE OF SERVICE: 03/16/2018 SERVICE: Renal Medicine. SUBJECTIVE: Ms. Ansari is a 77-year-old black female who was admitted for chest pain and some decreas ed mentation. We are following up for her maintenance hemodialysis. She has a planned cardiac jose maria terization today. She will receive dialysis after the cardiac catheterization due to the planned con trast load to be given for the said procedure. She is feeling better. She denies any chest pain or shortness of breath. Her mentation has improved. Please note I attributed to the sleepiness or decr eased mentation from her gabapentin, which has been temporarily discontinued. OBJECTIVE: VITAL SIGNS: Blood pressure is 94/50, heart rate 70, respiratory rate 17, temperature 98.3, pulse ox 92%. GENERAL: Noted to be awake, alert, comfortable, not in distress. SKIN: Adequate turgor. HEENT: She has pinkish conjunctivae, anicteric sclerae. NECK: No neck mass, no carotid bruits, no JVD. CHEST: No deformities. LUNGS: Clear breath sounds. No wheezing, no crackles. HEART: Normal sinus rhythm. No murmur, no gallops or rubs. ABDOMEN: Globular, soft, nontender, no masses. EXTREMITIES: Trace edema. MEDICATIONS: of 03/16/2018 was reviewed. LABORATORY DATA: Of 03/16/2018, white count 7.3, hemoglobin 12.7. Sodium 137, potassium 4.3, chlori de 97, carbon dioxide 28, BUN 31, creatinine 6.1, glucose 95, calcium 8.2. ASSESSMENT AND PLAN: 1. End-stage renal disease, stable. We will continue current maintenance hemodialysis of Tuesday, , Tuesday. However, due to the planned contrast load to be given with this patient, she will r eceive a short 2 hour hemodialysis today. 2. Chronic anemia - no indication for initiation of Epogen. 3. Chest pain - patient to undergo cardiac catheterization today with Dr. Collins. 4. Decreased mentation - we have discontinued the patient's gabapentin. In the near future, if we n eed to introduce I would suggest 300 mg tab every other day. 5. We will recheck base met and CBC in a.m.
[2018-03-16] MEDS ORDERED: Nitroglycerin 0.4 MG TAB (25 Tab Bottle) SL PRN (08:23)
[2018-03-16] MEDS ORDERED: Acetaminophen/Codeine 30-300mg Tablet PO PRN ×2 (08:23)
[2018-03-16] MEDS ORDERED: Sodium Chloride 0.9% 200 ML IV SCH (08:30)
[2018-03-16] MEDS ORDERED: Iopamidol 370 76% 100 ML VIAL ONE (12:17)
[2018-03-16] MEDS: HYDROcodone/Acetaminophen 10/325 mg Tablet PO SCH ×3 (14:19→20:56)
--- NOTE | 2018-03-16 17:00 | PDOC.PN ---
- Subjective Encounter Start Date: 03/16/18 Encounter Start Time: 16:58 Pt seen for followup re: chest pain. Denies chest pain, shortness of breath, fevers or chills. No nausea or vomiting. - Objective MAR Reviewed: Yes Vital Signs & Weight: Vital Signs (12 hours) Temp Pulse Resp BP BP Pulse Ox 03/16/18 11:15 98.0 F 60 17 136/67 98 03/16/18 07:23 94 L 03/16/18 07:20 97.8 F 81 17 133/74 94 L I&O: 03/15/18 03/16/18 03/17/18 06:59 06:59 06:59 Intake Total 560 580 Balance 560 580 Result Diagrams: 03/16/18 05:06 03/16/18 05:06 Additional Labs: Accuchecks 03/16/18 03/16/18 03/16/18 16:42 11:34 05:52 POC Glucose 108 105 109 03/15/18 03/15/18 03/15/18 20:59 17:00 15:23 POC Glucose 154 H 134 H 94 03/15/18 10:44 POC Glucose 135 H EKG Reviewed by me: Yes (Tele: NSR) Phys Exam - Physical Examination Morbid obesity HEENT: moist MMs Neck: supple Respiratory: clear to auscultation bilateral Cardiovascular: RRR Gastrointestinal: soft Neurological: moves all 4 limbs Psychiatric: normal affect Dx/Plan (1) Chest pain Code(s): R07.9 - CHEST PAIN, UNSPECIFIED Status: Acute Comment: normal coronaries on cath, likely musculoskeletal pain (2) DM2 (diabetes mellitus, type 2) Status: Chronic Qualifiers: Diabetes mellitus complication status: with kidney complications Chronic kidney disease stage: on chronic dialysis Comment: continue accuchecks, insulin sliding scale (3) ESRD on dialysis Code(s): N18.6 - END STAGE RENAL DISEASE; Z99.2 - DEPENDENCE ON RENAL DIALYSIS Status: Chronic Comment: pt had dialysis today after cardiac cath, for repeat dialysis tomorrow (4) Hypertension Code(s): I10 - ESSENTIAL (PRIMARY) HYPERTENSION Status: Chronic Qualifiers: Hypertension type: essential hypertension Qualified Code(s): I10 - Essential (primary) hypertension Comment: Controlled and at goal (5) h/o Pulmonary embolism on coumadin Status: Chronic Comment: resume warfarin - Plan plan discussed w/ family, out of bed/ambulate * . Review of Systems - Review of Systems Cardiovascular: negative: chest pain, palpitations, orthopnea, paroxysmal nocturnal dyspnea, edema, light headedness Gastrointestinal: negative: Nausea, Vomiting, Abdominal Pain, Diarrhea, Constipation, Melena, Hematochezia - Medications/Allergies Allergies/Adverse Reactions: Allergies Allergy/AdvReac Type Severity Reaction Status Date / Time No Known Drug Allergies Allergy Unknown Verified 03/13/18 23:52 Medications: Current Medications Acetaminophen (Tylenol) 650 mg PO Q4H PRN PRN Reason: Headache/Fever or Pain Last Admin: 03/15/18 22:02 Dose: 650 mg Acetaminophen/Codeine Phosphate (Tylenol #3) 1 tab PO Q4H PRN PRN Reason: Mild Pain (1-3) Acetaminophen/Codeine Phosphate (Tylenol #3) 2 tab PO Q4H PRN PRN Reason: Moderate Pain (4-6) Hydrocodone Bitart/Acetaminophen ([place] 5/325) 1 tab PO Q4H PRN PRN Reason: Moderate Pain (4-6) Last Admin: 03/14/18 22:13 Dose: 1 tab Hydrocodone Bitart/Acetaminophen ([place] 10/325) 1 tab PO TID [facility] Last Admin: 03/16/18 14:30 Dose: 1 tab Allopurinol (Zyloprim) 100 mg PO DAILY [facility] [place] Last Admin: 03/16/18 06:46 Dose: 100 mg Anastrozole (Arimidex) 1 mg PO DAILY [facility] Last Admin: 03/16/18 06:46 Dose: 1 mg Aspirin (Aspirin) 325 mg PO DAILY [facility] [place] Last Admin: 03/16/18 06:46 Dose: 325 mg Atorvastatin Calcium (Lipitor) 10 mg PO HS [facility] Last Admin: 03/15/18 20:20 Dose: 10 mg Carvedilol (Coreg) 3.125 mg PO BID [facility] Last Admin: 03/16/18 07:24 Dose: 3.125 mg Carvedilol (Coreg) 3.125 mg PO SuTuThSa@2100 [facility] Cinacalcet (Sensipar) 30 mg PO DAILY [facility] Last Admin: 03/16/18 06:47 Dose: 30 mg Dextrose/Water (Dextrose 50%) 25 gm SLOW IVP PRN PRN PRN Reason: Hypoglycemia Glucagon (Glucagon) 1 mg IM PRN PRN PRN Reason: Hypoglycemia Heparin Sodium (Porcine) (Heparin) 5,000 units SC TID [facility] [place] Last Admin: 03/16/18 14:31 Dose: Not Given Dextrose/Water (D5w) 1,000 mls @ 0 mls/hr IV .Q0M PRN; As Directed PRN Reason: Hypoglycemia Sodium Chloride (Normal Saline 0.9%) 200 mls @ 0 mls/hr IV ONE [facility] [place] PRN Reason: As Directed Stop: 03/16/18 21:00 Insulin Human Lispro (Humalog) 0 units SC .MODERATE SLIDING SC PRN PRN Reason: Moderate Correctional Scale Insulin Human Lispro (Humalog) 0 units SC .BEDTIME SLIDING SC PRN PRN Reason: Bedtime Correctional Scale Lactulose (Lactulose) 20 gm PO HS PRN PRN Reason: CONSTIPATION Nitroglycerin (Nitrostat) 0.4 mg SL Q5MIN PRN PRN Reason: Chest Pain Ondansetron HCl (Zofran Odt) 4 mg PO Q6H PRN PRN Reason: Nausea/Vomiting Last Admin: 03/14/18 06:50 Dose: 4 mg Pantoprazole Sodium (Protonix) 40 mg PO BID [facility] [place] Last Admin: 03/16/18 06:48 Dose: 40 mg Sertraline HCl (Zoloft) 50 mg PO DAILY [facility] [place] Last Admin: 03/16/18 06:48 Dose: 50 mg Sevelamer Carbonate (Renvela) 1,600 mg PO TID-[facility] Last Admin: 03/16/18 14:20 Dose: Not Given Tramadol HCl (Ultram) 50 mg PO Q6H PRN PRN Reason: Moderate Pain (4-6) Vitamin B Complex/Vit C/Folic Acid (Nephro-Kamala Tablet) 1 tab PO DAILY [facility] [place] Last Admin: 03/16/18 06:47 Dose: 1 tab Warfarin Sodium (Coumadin) 2 mg PO 1700 [facility] [place]
[2018-03-16] MEDS: Warfarin Sodium 2 MG TAB PO SCH (18:15)
[2018-03-16] MEDS: traMADol HCl 50 MG TAB PO PRN (18:51)
[2018-03-16] MEDS: Atorvastatin Calcium 10 MG TAB PO SCH (20:55)
[2018-03-16] MEDS: Simethicone Chewable 80 MG TAB PO SCH (20:55)
[2018-03-17 04:36] LABS: #Basophils 0.1 thou/uL (0.0-0.2); #Eosinphils 0.2 thou/uL (0.0-0.7); #Lymphocytes 1.3 thou/uL (1.20-3.40); #Monocytes 0.7 thou/uL (0.11-0.59); #Neutrophils 3.8 thou/uL (1.40-6.50); %Eosinophils 3.8 % (0.0-10.0); %Lymphocytes 20.6 % (21.0-51.0); %Monocytes 12.1 % (0.0-10.0); %Neutrophils 62.5 % (42.0-75.0); Hemoglobin 11.4 g/dL (12.0-16.0); Mean Corpuscular HGB CONC 34.3 g/dL (32.0-36.0); Mean Corpuscular Hemoglobin 31.7 pg (27.0-31.0); Mean Corpuscular Volume 92.6 fL (78.0-98.0); Mean Platelet Volume 7.6 fL (7.4-10.4); Platelet Count 242 thou/uL (130-400); RBC Distribution Width 14.6 % (11.5-14.5); Red Blood Cell (RBC) Count 3.61 mill/uL (4.20-5.40); White Blood Cell (WBC) Count 6.2 thou/uL (4.8-10.8)
[2018-03-17 04:40] LABS: INR-International Normal Ratio 1.2
[2018-03-17 04:56] LABS: Anion Gap 15 mmol/L (10-20); BUN (Urea Nitrogen) 30 mg/dL (9.8-20.1); Calc. Creatinine Clearance 12 mL/min (70-130); Carbon Dioxide 28 mmol/L (23-31); Chloride 98 mmol/L (98-107); Estimated GFR-MDRD 8; Glucose 88 mg/dL (83-110); Potassium 4.1 mmol/L (3.5-5.1); Sodium 137 mmol/L (136-145)
--- NOTE | 2018-03-17 07:28 | PRG ---
DATE OF SERVICE: 03/17/2018 SUBJECTIVE: Ms. Ansari is a 77-year-old black female who was admitted for chest pain and for mental s tatus change. She has undergone cardiac catheterization with essentially negative findings - per andrew bal report. Her gabapentin has been placed on hold due to the mental status change. This morning, s he voices no new complaints. She denies any chest pain or shortness of breath. PHYSICAL EXAMINATION: VITAL SIGNS: Blood pressure 120/60, heart rate 73, respiratory rate 18, temperature 97.9, pulse ox 9 2%. GENERAL: Awake, alert, comfortable, not in distress. SKIN: Adequate turgor. HEENT: She has pinkish conjunctivae, anicteric sclerae. NECK: No neck mass, no carotid bruits, no JVD. CHEST: No deformities. LUNGS: Clear breath sounds, no wheezing, no crackles. HEART: Normal sinus rhythm. No murmur, no gallops or rubs. ABDOMEN: Globular, soft, nontender, no masses. EXTREMITIES: No edema, no deformities. MEDICATIONS: 03/17/2018 - Reviewed. LABORATORY DATA: 03/17/2018 - White count 6.2, hemoglobin 11.4, sodium 137, potassium 4.1, chloride 98, carbon dioxide 28, BUN 30, creatinine 6.17, glucose 88, calcium 8. ASSESSMENT AND PLAN: 1. End-stage renal disease - stable. We will continue current Tuesday, Tuesday, Tuesday dialysis. Fluid removal only as tolerated. 2. Chest pain, resolved. Cardiac catheterization - reported as normal. Continue supportive care. 3. Mental status change, much improved with discontinuation of gabapentin. In the near future, as p reviously mentioned, if gabapentin is to be restarted consider gabapentin 300 mg tab every other day, adjusted for renal dosing. I agree with current management.
[2018-03-17] MEDS: Sevelamer Carbonate 800 MG TAB PO SCH ×3 (09:46→18:06)
[2018-03-17] MEDS: Heparin 5,000 UNITS/ML VIAL SC SCH (09:47)
[2018-03-17] MEDS ORDERED: Heparin 25,000 units/D5W 500 ML IVPB SCH (11:00)
[2018-03-17] MEDS ORDERED: Heparin 10,000 UNITS/ 10 ML VIAL SLOW IVP SCH (11:00)
[2018-03-17 11:28] LABS: HBSAg Index 0.18 S/CO (0-0.99); Hep B Surf Ag Non-Reactive S/CO (NonReactive)
[2018-03-17 11:37] LABS: Hemoglobin 12.1 g/dL (12.0-16.0); Platelet Count 253 thou/uL (130-400)
[2018-03-17] MEDS: Simethicone Chewable 80 MG TAB PO SCH ×2 (12:36→21:01)
[2018-03-17] MEDS: Anastrozole 1 MG TAB PO SCH (12:36)
[2018-03-17] MEDS: Cinacalcet HCl 30 MG TAB PO SCH (12:36)
[2018-03-17] MEDS: Carvedilol 3.125 MG TAB PO SCH ×2 (12:36→21:03)
[2018-03-17] MEDS: Aspirin 325 MG TAB PO SCH (12:36)
[2018-03-17] MEDS: Folic Acid/Vit B Comp W-C PO SCH (12:36)
[2018-03-17] MEDS: Allopurinol 100 MG TAB PO SCH (12:37)
[2018-03-17] MEDS: HYDROcodone/Acetaminophen 10/325 mg Tablet PO SCH ×3 (12:37→21:01)
[2018-03-17] MEDS: Heparin 10,000 UNITS/ 10 ML VIAL SLOW IVP SCH (12:52)
[2018-03-17] MEDS: Heparin 25,000 units/D5W 500 ML IVPB SCH (12:53)
[2018-03-17] MEDS: traMADol HCl 50 MG TAB PO PRN (16:17)
[2018-03-17] MEDS: Warfarin Sodium 2 MG TAB PO SCH (16:18)
--- NOTE | 2018-03-17 16:27 | PDOC.PN ---
- Subjective Encounter Start Date: 03/17/18 Encounter Start Time: 08:20 Pt seen for followup re: chest pain. denies chest pain, shortness of breath, fevers or chills. - Objective MAR Reviewed: Yes Vital Signs & Weight: Vital Signs (12 hours) Temp Pulse Resp BP Pulse Ox 03/17/18 07:56 98.4 F 76 18 123/62 97 I&O: 03/16/18 03/17/18 03/18/18 06:59 06:59 06:59 Intake Total 580 780 Output Total 0 Balance 580 780 Result Diagrams: 03/17/18 11:27 03/17/18 04:18 Additional Labs: Accuchecks 03/17/18 03/16/18 03/16/18 06:01 21:26 16:42 POC Glucose 97 107 108 EKG Reviewed by me: Yes (Tele: NSR) Phys Exam - Physical Examination Morbid obesity HEENT: moist MMs Neck: supple Respiratory: clear to auscultation bilateral Cardiovascular: RRR Gastrointestinal: soft Neurological: moves all 4 limbs Psychiatric: normal affect Dx/Plan (1) Chest pain Code(s): R07.9 - CHEST PAIN, UNSPECIFIED Status: Acute Comment: normal coronaries on cath, likely musculoskeletal pain since pain was reproducible with deep palpation (2) Chronic a-fib Code(s): I48.2 - CHRONIC ATRIAL FIBRILLATION Status: Chronic Comment: Contacted pt's PCP's office. Nurse reports that according to their medical records pt has a h/o ch. a. fib. cardiology service asking for heparin bridge. Given ESRD, will start heparin drip. (3) DM2 (diabetes mellitus, type 2) Status: Chronic Qualifiers: Diabetes mellitus complication status: with kidney complications Chronic kidney disease stage: on chronic dialysis Comment: controlled and at goal (4) ESRD on dialysis Code(s): N18.6 - END STAGE RENAL DISEASE; Z99.2 - DEPENDENCE ON RENAL DIALYSIS Status: Chronic Comment: pt had dialysis today (5) Hypertension Code(s): I10 - ESSENTIAL (PRIMARY) HYPERTENSION Status: Chronic Qualifiers: Hypertension type: essential hypertension Qualified Code(s): I10 - Essential (primary) hypertension Comment: Controlled and at goal (6) h/o Pulmonary embolism on coumadin Status: Chronic Comment: resume warfarin, pt needs warfarin for chronic a. fib. Pt reports having only one episode of PE (appears to have been in 2013) - Plan * . Review of Systems - Review of Systems Respiratory: negative: Cough, Shortness of Breath, SOB with Excertion, Pleuritic Pain, Wheezing Cardiovascular: negative: chest pain, palpitations, orthopnea, paroxysmal nocturnal dyspnea, edema, light headedness, other - Medications/Allergies Allergies/Adverse Reactions: Allergies Allergy/AdvReac Type Severity Reaction Status Date / Time No Known Drug Allergies Allergy Unknown Verified 03/13/18 23:52 Medications: Current Medications Acetaminophen (Tylenol) 650 mg PO Q4H PRN PRN Reason: Headache/Fever or Pain Last Admin: 03/15/18 22:02 Dose: 650 mg Acetaminophen/Codeine Phosphate (Tylenol #3) 1 tab PO Q4H PRN PRN Reason: Mild Pain (1-3) Acetaminophen/Codeine Phosphate (Tylenol #3) 2 tab PO Q4H PRN PRN Reason: Moderate Pain (4-6) Hydrocodone Bitart/Acetaminophen ([place] 5/325) 1 tab PO Q4H PRN PRN Reason: Moderate Pain (4-6) Last Admin: 03/14/18 22:13 Dose: 1 tab Hydrocodone Bitart/Acetaminophen ([place] 10/325) 1 tab PO TID [facility] Last Admin: 03/17/18 12:38 Dose: Not Given Allopurinol (Zyloprim) 100 mg PO DAILY [facility] Last Admin: 03/17/18 12:37 Dose: 100 mg Anastrozole (Arimidex) 1 mg PO DAILY [facility] Last Admin: 03/17/18 12:36 Dose: 1 mg Aspirin (Aspirin) 325 mg PO DAILY [facility] Last Admin: 03/17/18 12:36 Dose: 325 mg Atorvastatin Calcium (Lipitor) 10 mg PO HS [facility] Last Admin: 03/16/18 20:55 Dose: 10 mg Carvedilol (Coreg) 3.125 mg PO BID [facility] Last Admin: 03/17/18 12:36 Dose: 3.125 mg Carvedilol (Coreg) 3.125 mg PO SuTuThSa@2100 [facility] Last Admin: 03/16/18 20:56 Dose: 3.125 mg Cinacalcet (Sensipar) 30 mg PO DAILY [facility] Last Admin: 03/17/18 12:36 Dose: 30 mg Dextrose/Water (Dextrose 50%) 25 gm SLOW IVP PRN PRN PRN Reason: Hypoglycemia Glucagon (Glucagon) 1 mg IM PRN PRN PRN Reason: Hypoglycemia Heparin Sodium (Porcine) (Heparin 1,000 Units/Ml (10 Ml)) 0 units SLOW IVP ASDIR [facility] PRN Reason: Protocol Last Admin: 03/17/18 12:52 Dose: 4,000 unit Dextrose/Water (D5w) 1,000 mls @ 0 mls/hr IV .Q0M PRN; As Directed PRN Reason: Hypoglycemia Heparin Sodium/Dextrose (Heparin 25,000 Units/D5w 500 Ml) 500 mls @ 0 mls/hr IVPB INF [facility]; Per Protocol PRN Reason: Protocol Last Admin: 03/17/18 12:53 Dose: 500 mls Insulin Human Lispro (Humalog) 0 units SC .MODERATE SLIDING SC PRN PRN Reason: Moderate Correctional Scale Insulin Human Lispro (Humalog) 0 units SC .BEDTIME SLIDING SC PRN PRN Reason: Bedtime Correctional Scale Lactulose (Lactulose) 20 gm PO HS PRN PRN Reason: CONSTIPATION Nitroglycerin (Nitrostat) 0.4 mg SL Q5MIN PRN PRN Reason: Chest Pain Ondansetron HCl (Zofran Odt) 4 mg PO Q6H PRN PRN Reason: Nausea/Vomiting Last Admin: 03/14/18 06:50 Dose: 4 mg Pantoprazole Sodium (Protonix) 40 mg PO BID [facility] Last Admin: 03/17/18 12:54 Dose: 40 mg Sertraline HCl (Zoloft) 50 mg PO DAILY [facility] Last Admin: 03/17/18 12:37 Dose: 50 mg Sevelamer Carbonate (Renvela) 1,600 mg PO TID-[facility] Last Admin: 03/17/18 16:00 Dose: Not Given Simethicone (Mylicon Chewable) 80 mg PO BID [facility] Last Admin: 03/17/18 12:36 Dose: 80 mg Tramadol HCl (Ultram) 50 mg PO Q6H PRN PRN Reason: Moderate Pain (4-6) Last Admin: 03/17/18 16:17 Dose: 50 mg Vitamin B Complex/Vit C/Folic Acid (Nephro-Kamala Tablet) 1 tab PO DAILY [facility] Last Admin: 03/17/18 12:36 Dose: 1 tab Warfarin Sodium (Coumadin) 2 mg PO 1700 [facility] Last Admin: 03/17/18 16:18 Dose: 2 mg
[2018-03-17] MEDS: Atorvastatin Calcium 10 MG TAB PO SCH (21:02)
[2018-03-18] MEDS ORDERED: Clopidogrel Bisulfate 75 MG TAB ONE ×2 (00:51)
[2018-03-18] MEDS: Sevelamer Carbonate 800 MG TAB PO SCH ×3 (07:55→17:10)
[2018-03-18] MEDS: Allopurinol 100 MG TAB PO SCH (07:57)
[2018-03-18] MEDS: Anastrozole 1 MG TAB PO SCH (07:57)
[2018-03-18] MEDS: Folic Acid/Vit B Comp W-C PO SCH (07:58)
[2018-03-18] MEDS: Cinacalcet HCl 30 MG TAB PO SCH (07:59)
[2018-03-18] MEDS: Carvedilol 3.125 MG TAB PO SCH ×2 (08:00→20:34)
[2018-03-18] MEDS: Aspirin 325 MG TAB PO SCH (08:01)
[2018-03-18] MEDS: HYDROcodone/Acetaminophen 10/325 mg Tablet PO SCH ×3 (08:01→20:35)
[2018-03-18] MEDS: Simethicone Chewable 80 MG TAB PO SCH ×2 (08:02→20:35)
[2018-03-18] MEDS: traMADol HCl 50 MG TAB PO PRN (10:28)
[2018-03-18 10:30] LABS: INR-International Normal Ratio 1.2
--- NOTE | 2018-03-18 11:38 | PRG ---
DATE OF SERVICE: 03/18/2018 RENAL MEDICINE SUBJECTIVE: Ms. Ansari is a 77-year-old black female with ESRD and followed by [facility] for [facility] hemodialysis. She was admitted for chest pain and underwent a cardiac catheterization with n egative findings. She is currently receiving IV heparin and being breach until her Coumadin/INR will be therapeutic. No new complaints today, no chest pain or shortness of breath. PHYSICAL EXAMINATION: VITAL SIGNS: Blood pressure is 116/70, heart rate 73, respiratory rate 18, temperature 98.9, pulse o x 95%. GENERAL: Noted to be awake, alert, comfortable, not in overt distress. SKIN: Adequate turgor. HEENT: She has pinkish conjunctivae, anicteric sclerae. NECK: No neck mass, no carotid bruits, no JVD. CHEST: No deformities. LUNGS: Clear breath sounds. No wheezing, no crackles. HEART: Normal sinus rhythm. No murmurs, no gallops, no rubs. ABDOMEN: Globular, soft, nontender, no masses. EXTREMITIES: No edema, no deformities. MEDICATIONS: Medications of 03/18/2018 was reviewed. LABORATORY DATA: Laboratories of 03/18/2018; INR is 1.2. On 03/17/2018; sodium 137, potassium 4.1, chloride 98, carbon dioxide 28, BUN 30, creatinine 6.17, calcium 8. ASSESSMENT AND PLAN: 1. End-stage renal disease, stable. There is no indication for any dialytic intervention for the pa tient. She received dialysis yesterday. Fluid removal was removed. She tolerated said treatment. Continue Tuesday, Tuesday and Tuesday hemodialysis. 2. Status post pulseless electrical activity - being anticoagulated. Currently on Coumadin and hepa rin drip. Awaiting for INR to become therapeutic. 3. Decreased mentation - resolved with discontinuation of her gabapentin. As previously mentioned, should gabapentin be required, she should only take 300 mg tab every other day - this is renal dosing . Overall, agree with current management. There is no acute indication for any dialytic intervention t sara.
[2018-03-18] MEDS: Heparin 25,000 units/D5W 500 ML IVPB SCH (12:22)
--- NOTE | 2018-03-18 14:56 | PDOC.PN ---
- Subjective Encounter Start Date: 03/18/18 Encounter Start Time: 09:00 Pt seen for followup re: chest pain. Denies any chest pain, shortness of breath , fevers or chills. No nausea or vomiting. - Objective MAR Reviewed: Yes Vital Signs & Weight: Vital Signs (12 hours) Temp Pulse Resp BP BP Pulse Ox 03/18/18 12:19 98.7 F 71 18 152/87 H 95 03/18/18 08:05 98.9 F 73 18 03/18/18 07:53 98.9 F 73 18 116/70 95 03/18/18 04:00 98.4 F 76 16 131/84 91 L I&O: 03/17/18 03/18/18 03/19/18 06:59 06:59 06:59 Intake Total 780 1020 Output Total 0 Balance 780 1020 Result Diagrams: 03/17/18 11:27 03/17/18 04:18 Additional Labs: Accuchecks 03/18/18 03/18/18 03/17/18 10:51 06:02 20:57 POC Glucose 118 H 88 151 H 03/17/18 16:50 POC Glucose 95 EKG Reviewed by me: Yes (Tele: NSR) Phys Exam - Physical Examination Constitutional: NAD HEENT: moist MMs Neck: supple Respiratory: clear to auscultation bilateral Cardiovascular: RRR Gastrointestinal: soft Neurological: moves all 4 limbs Psychiatric: normal affect Dx/Plan (1) Chest pain Code(s): R07.9 - CHEST PAIN, UNSPECIFIED Status: Acute Comment: likely musculoskeletal pain since pain was reproducible with deep palpation. Pt also started on simethicone for possible GI etiology. Normal coronaries on cath, INR was 1.9 on th day of admission, making PE less likley. (2) Chronic a-fib Code(s): I48.2 - CHRONIC ATRIAL FIBRILLATION Status: Chronic Comment: Pt on warfarin with heparin bridge (3) DM2 (diabetes mellitus, type 2) Status: Chronic Qualifiers: Diabetes mellitus complication status: with kidney complications Chronic kidney disease stage: on chronic dialysis Comment: controlled and at goal (4) ESRD on dialysis Code(s): N18.6 - END STAGE RENAL DISEASE; Z99.2 - DEPENDENCE ON RENAL DIALYSIS Status: Chronic Comment: nephrology following for maintainance dialysis (5) Hypertension Code(s): I10 - ESSENTIAL (PRIMARY) HYPERTENSION Status: Chronic Qualifiers: Hypertension type: essential hypertension Qualified Code(s): I10 - Essential (primary) hypertension Comment: Controlled and at goal (6) 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 fib) - Plan * . Review of Systems - Review of Systems Constitutional: negative: fever, chills, sweats, weakness, malaise Cardiovascular: negative: chest pain, palpitations, orthopnea, paroxysmal nocturnal dyspnea, edema, light headedness - Medications/Allergies Allergies/Adverse Reactions: Allergies Allergy/AdvReac Type Severity Reaction Status Date / Time No Known Drug Allergies Allergy Unknown Verified 03/13/18 23:52 Medications: Current Medications Acetaminophen (Tylenol) 650 mg PO Q4H PRN PRN Reason: Headache/Fever or Pain Last Admin: 03/15/18 22:02 Dose: 650 mg Acetaminophen/Codeine Phosphate (Tylenol #3) 1 tab PO Q4H PRN PRN Reason: Mild Pain (1-3) Acetaminophen/Codeine Phosphate (Tylenol #3) 2 tab PO Q4H PRN PRN Reason: Moderate Pain (4-6) Hydrocodone Bitart/Acetaminophen ([place] 5/325) 1 tab PO Q4H PRN PRN Reason: Moderate Pain (4-6) Last Admin: 03/14/18 22:13 Dose: 1 tab Hydrocodone Bitart/Acetaminophen ([place] 10/325) 1 tab PO TID [facility] Last Admin: 03/18/18 08:01 Dose: 1 tab Allopurinol (Zyloprim) 100 mg PO DAILY [facility] Last Admin: 03/18/18 07:57 Dose: 100 mg Anastrozole (Arimidex) 1 mg PO DAILY [facility] Last Admin: 03/18/18 07:57 Dose: 1 mg Aspirin (Aspirin) 325 mg PO DAILY [facility] Last Admin: 03/18/18 08:01 Dose: 325 mg Atorvastatin Calcium (Lipitor) 10 mg PO HS [facility] Last Admin: 03/17/18 21:02 Dose: 10 mg Carvedilol (Coreg) 3.125 mg PO BID [facility] Last Admin: 03/18/18 08:00 Dose: 3.125 mg Carvedilol (Coreg) 3.125 mg PO SuTuThSa@2100 [facility] Last Admin: 03/16/18 20:56 Dose: 3.125 mg Cinacalcet (Sensipar) 30 mg PO DAILY [facility] Last Admin: 03/18/18 07:59 Dose: 30 mg Dextrose/Water (Dextrose 50%) 25 gm SLOW IVP PRN PRN PRN Reason: Hypoglycemia Glucagon (Glucagon) 1 mg IM PRN PRN PRN Reason: Hypoglycemia Heparin Sodium (Porcine) (Heparin 1,000 Units/Ml (10 Ml)) 0 units SLOW IVP ASDIR [facility] PRN Reason: Protocol Last Admin: 03/17/18 12:52 Dose: 4,000 unit Dextrose/Water (D5w) 1,000 mls @ 0 mls/hr IV .Q0M PRN; As Directed PRN Reason: Hypoglycemia Heparin Sodium/Dextrose (Heparin 25,000 Units/D5w 500 Ml) 500 mls @ 0 mls/hr IVPB INF [facility]; Per Protocol PRN Reason: Protocol Last Admin: 03/18/18 12:22 Dose: 500 mls Insulin Human Lispro (Humalog) 0 units SC .MODERATE SLIDING SC PRN PRN Reason: Moderate Correctional Scale Insulin Human Lispro (Humalog) 0 units SC .BEDTIME SLIDING SC PRN PRN Reason: Bedtime Correctional Scale Lactulose (Lactulose) 20 gm PO HS PRN PRN Reason: CONSTIPATION Last Admin: 03/17/18 18:10 Dose: 20 gm Nitroglycerin (Nitrostat) 0.4 mg SL Q5MIN PRN PRN Reason: Chest Pain Ondansetron HCl (Zofran Odt) 4 mg PO Q6H PRN PRN Reason: Nausea/Vomiting Last Admin: 03/14/18 06:50 Dose: 4 mg Pantoprazole Sodium (Protonix) 40 mg PO BID [facility] Last Admin: 03/18/18 08:02 Dose: 40 mg Sertraline HCl (Zoloft) 50 mg PO DAILY [facility] Last Admin: 03/18/18 07:59 Dose: 50 mg Sevelamer Carbonate (Renvela) 1,600 mg PO TID-[facility] Last Admin: 03/18/18 12:20 Dose: 1,600 mg Simethicone (Mylicon Chewable) 80 mg PO BID [facility] Last Admin: 03/18/18 08:02 Dose: 80 mg Tramadol HCl (Ultram) 50 mg PO Q6H PRN PRN Reason: Moderate Pain (4-6) Last Admin: 03/18/18 10:28 Dose: 50 mg Vitamin B Complex/Vit C/Folic Acid (Nephro-Kamala Tablet) 1 tab PO DAILY [facility] Last Admin: 03/18/18 07:58 Dose: 1 tab Warfarin Sodium (Coumadin) 2 mg PO 1700 [facility] Last Admin: 03/17/18 16:18 Dose: 2 mg
[2018-03-18] MEDS: Warfarin Sodium 2 MG TAB PO SCH (17:10)
[2018-03-18] MEDS: Atorvastatin Calcium 10 MG TAB PO SCH (20:34)
[2018-03-18] MEDS: Heparin 10,000 UNITS/ 10 ML VIAL SLOW IVP SCH (22:59)
[2018-03-19] MEDS: traMADol HCl 50 MG TAB PO PRN (02:08)
[2018-03-19 05:08] LABS: INR-International Normal Ratio 1.3; Prothrombin Time 16.5 SEC (12.0-14.7)
[2018-03-19 06:32] LABS: PTT 151.7 SEC (22.9-36.1)
[2018-03-19] MEDS: HYDROcodone/Acetaminophen 10/325 mg Tablet PO SCH ×3 (08:36→20:09)
[2018-03-19] MEDS: Sevelamer Carbonate 800 MG TAB PO SCH ×3 (08:36→18:02)
[2018-03-19] MEDS: Cinacalcet HCl 30 MG TAB PO SCH (08:37)
[2018-03-19] MEDS: Folic Acid/Vit B Comp W-C PO SCH (08:37)
[2018-03-19] MEDS: Allopurinol 100 MG TAB PO SCH (08:37)
[2018-03-19] MEDS: Anastrozole 1 MG TAB PO SCH (08:37)
[2018-03-19] MEDS: Aspirin 325 MG TAB PO SCH (08:37)
[2018-03-19] MEDS: Simethicone Chewable 80 MG TAB PO SCH ×2 (08:37→20:10)
[2018-03-19] MEDS ORDERED: Warfarin Sodium 2 MG TAB PO SCH (10:08)
[2018-03-19 11:06] LABS: Hemoglobin 11.9 g/dL (12.0-16.0); Platelet Count 222 thou/uL (130-400)
--- NOTE | 2018-03-19 12:50 | PRG ---
DATE OF SERVICE: 03/19/2018 SUBJECTIVE: Ms. Ansari is a 77-year-old black female with ESRD and being followed up by the Renal Ser vice. She is undergoing maintenance hemodialysis and tolerating said treatment. She is actually aury ng anticoagulated. Her INR is still not therapeutic. No new complaints today, no chest pain or shortness of breath. OBJECTIVE: VITAL SIGNS: Blood pressure is 130/66, heart rate 71, respiratory rate 19, pulse ox 94%, and tempera ture 98. GENERAL: Awake, alert, comfortable, not in distress. SKIN: Adequate turgor. HEENT: Pinkish conjunctivae, anicteric sclerae. NECK: No neck mass, no carotid bruits, no JVD. CHEST: No deformities. LUNGS: Clear breath sounds, no wheezing, no crackles. HEART: Normal sinus rhythm. No murmur, no gallops or rubs. ABDOMEN: Globular, soft, nontender, no masses. EXTREMITIES: No edema. MEDICATIONS: 03/19/2018 was reviewed. LABORATORY DATA: Laboratories of 03/19/2018 showed glucose 119. INR 1.3. ASSESSMENT AND PLAN: 1. Status post pulmonary embolism - patient is currently on IV heparin and Coumadin. Awaiting for t he Coumadin to reach therapeutic levels. My plan is to increase Coumadin from 2 mg tab at bedtime to 5 mg tab at bedtime. 2. End-stage renal disease, stable. We will continue current Tuesday, Tuesday, Tuesday hemodialysis . Fluid removal only as tolerated by the patient. 3. Chest pain, resolved. Cardiac catheterization was reported as within normal. Recheck base met and CBC and INR in a.m.
--- NOTE | 2018-03-19 15:55 | PDOC.PN ---
- Subjective Encounter Start Date: 03/19/18 Encounter Start Time: 15:45 Subjective: f/u for chronic atrial fibrillation on Coumadin and Heparin bridging. INR -: remains subtherapeutic 1.3. - Objective MAR Reviewed: Yes Vital Signs & Weight: Vital Signs (12 hours) Temp Pulse Resp BP BP Pulse Ox 03/19/18 12:00 98.4 F 71 18 129/63 93 L 03/19/18 08:42 71 19 130/66 94 L 03/19/18 04:00 98.0 F 70 14 134/63 93 L I&O: 03/18/18 03/19/18 03/20/18 06:59 06:59 06:59 Intake Total 1020 1044 Balance 1020 1044 Result Diagrams: 03/19/18 10:54 03/17/18 04:18 Additional Labs: Accuchecks 03/19/18 03/19/18 03/18/18 10:40 06:38 20:58 POC Glucose 140 H 119 H 128 H 03/18/18 16:57 POC Glucose 153 H Laboratory Tests 03/14/18 03/15/18 03/16/18 02:12 07:53 05:06 Hgb Plt Count INR 1.9 1.4 1.2 03/17/18 03/17/18 03/17/18 04:18 04:18 11:27 Hgb 11.4 L 12.1 Plt Count 242 253 INR 1.2 03/18/18 03/19/18 08:53 04:53 Hgb Plt Count INR 1.2 1.3 Radiology Reviewed by me: Yes (2D echo - EF 55-60%, diast dysfxn) EKG Reviewed by me: Yes (Tele - SR in 70's) Phys Exam - Physical Examination Constitutional: NAD HEENT: PERRLA, sclera anicteric, oral pharynx no lesions Neck: no nodes, no JVD, supple, full ROM Respiratory: no wheezing, no rales, no rhonchi, clear to auscultation bilateral S1, S2 Cardiovascular: RRR, no significant murmur, no rub, gallop Gastrointestinal: soft, non-tender, no distention, positive bowel sounds Musculoskeletal: no edema, pulses present Neurological: non-focal, normal sensation, moves all 4 limbs Psychiatric: normal affect, A&O x 3 Skin: no rash, normal turgor, cap refill <2 seconds Dx/Plan (1) Chronic a-fib Code(s): I48.2 - CHRONIC ATRIAL FIBRILLATION Status: Chronic Comment: Coumadin with Heparin bridging, INR remains subtherapeutic, currently in SR (2) Anticoagulant long-term use Code(s): Z79.01 - RETIREMENT (CURRENT) USE OF ANTICOAGULANTS Status: Chronic Comment: Coumadin for alf tx, INR subtherapeutic currently, continue serial PT/INR, Coumadin 5mg daily (3) DM2 (diabetes mellitus, type 2) Status: Chronic Qualifiers: Diabetes mellitus complication status: with kidney complications Chronic kidney disease stage: on chronic dialysis Comment: controlled and at goal (4) ESRD on dialysis Code(s): N18.6 - END STAGE RENAL DISEASE; Z99.2 - DEPENDENCE ON RENAL DIALYSIS Status: Chronic Comment: HD per Renal service (5) Hypertension Code(s): I10 - ESSENTIAL (PRIMARY) HYPERTENSION Status: Chronic Qualifiers: Hypertension type: essential hypertension Qualified Code(s): I10 - Essential (primary) hypertension Comment: Stable, continue current antihypertensive regimen - 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
[2018-03-19] MEDS ORDERED: Warfarin Sodium 5 MG TAB PO SCH (17:00)
[2018-03-19 17:31] LABS: INR-International Normal Ratio 1.3; Prothrombin Time 16.9 SEC (12.0-14.7)
[2018-03-19 17:32] LABS: PTT 54.6 SEC (22.9-36.1)
[2018-03-19] MEDS: Heparin 10,000 UNITS/ 10 ML VIAL SLOW IVP SCH (17:49)
[2018-03-19] MEDS: Heparin 25,000 units/D5W 500 ML IVPB SCH (17:49)
[2018-03-19] MEDS: Atorvastatin Calcium 10 MG TAB PO SCH (20:10)
[2018-03-19] MEDS: Carvedilol 3.125 MG TAB PO SCH (20:10)
[2018-03-20] MEDS: traMADol HCl 50 MG TAB PO PRN (00:30)
[2018-03-20 00:31] LABS: INR-International Normal Ratio 1.5; Prothrombin Time 18.1 SEC (12.0-14.7)
[2018-03-20 00:38] LABS: PTT 152.5 SEC (22.9-36.1)
[2018-03-20 03:14] LABS: INR-International Normal Ratio 1.4; Prothrombin Time 17.8 SEC (12.0-14.7)
[2018-03-20 04:11] LABS: Anion Gap 18 mmol/L (10-20); BUN (Urea Nitrogen) 49 mg/dL (9.8-20.1); Calc. Creatinine Clearance 8 mL/min (70-130); Calcium 7.9 mg/dL (7.8-10.44); Carbon Dioxide 27 mmol/L (23-31); Chloride 96 mmol/L (98-107); Estimated GFR-MDRD 5; Glucose 95 mg/dL (83-110); Potassium 4.4 mmol/L (3.5-5.1); Sodium 137 mmol/L (136-145)
--- NOTE | 2018-03-20 08:53 | PRG ---
DATE OF SERVICE: 03/20/2018 SUBJECTIVE: Ms. Ansari is a 77-year-old black female followed by the Renal Service for her maintenanc e hemodialysis. She is currently at the dialysis unit. I am at the bedside supervising her dialysis . She is tolerating said treatment. We are still awaiting for her INR to become therapeutic. Livier garcia note Coumadin has been increased yesterday. No complaints of chest pain or shortness of breath. PHYSICAL EXAMINATION: VITAL SIGNS: Blood pressure 175/74 - before BP meds, heart rate 72, respiratory rate 16, temperature 98.5, pulse ox 91%. GENERAL: Noted to be awake, supine, comfortable, not in overt distress. The patient is obese. SKIN: Adequate turgor. HEENT: She has pinkish conjunctivae, anicteric sclerae. NECK: No neck mass, no carotid bruits, no JVD. CHEST: No deformities. LUNGS: Clear breath sounds. HEART: Normal sinus rhythm. No murmur, no gallops, no rubs. ABDOMEN: Globular, soft, nontender, no masses. EXTREMITIES: No edema, no deformities. MEDICATIONS: 03/20/2018 - Reviewed. LABORATORY DATA: 03/19/2018 - Hemoglobin 11.9. 03/20/2018 - Sodium 137, potassium 4.4, chloride 96, carbon dioxide 27, BUN 49, creatinine 9.69, gluc ose 95, calcium 7.9. INR is 1.4. ASSESSMENT AND PLAN: 1. Status post pulmonary embolus - the patient being anticoagulated. Awaiting therapeutic levels of her Coumadin. Currently on Coumadin 5 mg tab at bedtime. 2. End-stage renal disease, stable. Tolerating current hemodialysis regimen. Again, fluid removal only as tolerated. We will continue Tuesday, Tuesday, Tuesday dialysis with this patient. We will recheck INR again tomorrow.
[2018-03-20] MEDS: Sevelamer Carbonate 800 MG TAB PO SCH ×3 (09:30→17:06)
[2018-03-20] MEDS: Heparin 10,000 UNITS/ 10 ML VIAL SLOW IVP SCH (10:33)
[2018-03-20] MEDS: HYDROcodone/Acetaminophen 10/325 mg Tablet PO SCH ×3 (10:40→20:05)
[2018-03-20] MEDS ORDERED: Warfarin Sodium 5 MG TAB PO SCH (12:00)
[2018-03-20] MEDS: Anastrozole 1 MG TAB PO SCH (12:18)
[2018-03-20] MEDS: Allopurinol 100 MG TAB PO SCH (12:18)
[2018-03-20] MEDS: Aspirin 325 MG TAB PO SCH (12:19)
[2018-03-20] MEDS: Cinacalcet HCl 30 MG TAB PO SCH (12:19)
[2018-03-20] MEDS: Folic Acid/Vit B Comp W-C PO SCH (12:20)
[2018-03-20] MEDS: Simethicone Chewable 80 MG TAB PO SCH ×2 (12:21→20:05)
--- NOTE | 2018-03-20 14:08 | PDOC.PN ---
- Subjective Encounter Start Date: 03/20/18 Encounter Start Time: 14:00 Subjective: f/u for anticoagulation with Coumadin secondary to hx of DVT/PE. -: INR 1.4 with plans on low-dose Coumadin chronically as prevention. -: HD completed this today without difficulty. - Objective MAR Reviewed: Yes Vital Signs & Weight: Vital Signs (12 hours) Temp Pulse Resp BP BP BP Pulse Ox 03/20/18 12:17 98.1 F 76 18 132/63 96 03/20/18 07:13 98.5 F 72 16 175/74 H 91 L 03/20/18 04:00 98.0 F 69 14 151/67 H 92 L Weight Weight 223 lb 15.36 oz I&O: 03/19/18 03/20/18 03/21/18 06:59 06:59 06:59 Intake Total 1044 810 Balance 1044 810 Result Diagrams: 03/19/18 10:54 03/20/18 02:47 Additional Labs: Accuchecks 03/20/18 03/19/18 03/19/18 06:23 20:58 16:33 POC Glucose 98 178 H 133 H EKG Reviewed by me: Yes (Tele - SR) Phys Exam - Physical Examination Constitutional: NAD HEENT: PERRLA, sclera anicteric, oral pharynx no lesions Neck: no nodes, no JVD, supple, full ROM Respiratory: no wheezing, no rales, no rhonchi, clear to auscultation bilateral S1, S2 Cardiovascular: RRR, no significant murmur, no rub, gallop Gastrointestinal: soft, non-tender, no distention, positive bowel sounds Musculoskeletal: no edema, pulses present Neurological: non-focal, normal sensation, moves all 4 limbs Psychiatric: normal affect, A&O x 3 Skin: no rash, normal turgor, cap refill <2 seconds Dx/Plan (1) Anticoagulant long-term use Code(s): Z79.01 - RETIREMENT (CURRENT) USE OF ANTICOAGULANTS Status: Chronic Comment: Coumadin for jail prophylaxis due to hx of DVT/PE, continue serial PT/INR, Coumadin 5mg daily (2) DM2 (diabetes mellitus, type 2) Status: Chronic Qualifiers: Diabetes mellitus complication status: with kidney complications Chronic kidney disease stage: on chronic dialysis Comment: controlled and at goal (3) ESRD on dialysis Code(s): N18.6 - END STAGE RENAL DISEASE; Z99.2 - DEPENDENCE ON RENAL DIALYSIS Status: Chronic Comment: HD per Renal service (4) Hypertension Code(s): I10 - ESSENTIAL (PRIMARY) HYPERTENSION Status: Chronic Qualifiers: Hypertension type: essential hypertension Qualified Code(s): I10 - Essential (primary) hypertension Comment: Stable, continue current antihypertensive regimen - Plan 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
[2018-03-20] MEDS: Warfarin Sodium 5 MG TAB PO SCH (17:06)
[2018-03-20] MEDS: Atorvastatin Calcium 10 MG TAB PO SCH (20:05)
[2018-03-21] MEDS: traMADol HCl 50 MG TAB PO PRN (00:28)
[2018-03-21 04:03] LABS: INR-International Normal Ratio 1.7; Prothrombin Time 20.9 SEC (12.0-14.7)
--- NOTE | 2018-03-21 08:33 | PRG ---
DATE OF SERVICE: 03/21/2018 SUBJECTIVE: Ms. Ansari is a 77-year-old black female with ESRD and being followed by the Renal Servic e for her maintenance hemodialysis. She is also currently being actively anticoagulated with Coumadi n. Her most recent INR now is slightly improved at 1.7. Target therapeutic level is between 2 and 3 . No other complaints today, no chest pain or shortness of breath. PHYSICAL EXAMINATION: VITAL SIGNS: Blood pressure is 137/65, heart rate 74, respiratory rate 18, temperature 98.9, pulse o x 96%. GENERAL: Awake, alert, comfortable, not in overt distress. SKIN: Adequate turgor. HEENT: She has pinkish conjunctivae, anicteric sclerae. NECK: No neck mass, no carotid bruits, no JVD. CHEST: No deformities. LUNGS: Clear breath sounds, no wheezing, no crackles. HEART: Normal sinus rhythm. No murmur, no gallops or rubs. ABDOMEN: Globular, soft, nontender, no masses. EXTREMITIES: No edema, no deformities. MEDICATIONS: 03/21/2018 - Reviewed. LABORATORY: 03/21/2018 - Showed INR of 1.7. 03/20/2018 - Sodium 137, potassium 4.4, chloride 96, carbon dioxide 27, BUN 49, creatinine 9.69, calc ium 7.9. 03/19/2018 - Hemoglobin 11.9. ASSESSMENT AND PLAN: 1. End-stage renal disease, stable. There is no indication for any acute dialytic intervention toda y. She received dialysis yesterday without any difficulty. 2. Status post pulmonary embolus/deep venous thrombosis - currently on heparin/Coumadin. Most recen t INR is now 1.5. Continue Coumadin 5 mg tab at bedtime. Hopefully, by a.m. she will be therapeutic , and we can consider discharging her after dialysis. Continue supportive care. Recheck labs tomorrow.
[2018-03-21] MEDS: Allopurinol 100 MG TAB PO SCH (08:37)
[2018-03-21] MEDS: Cinacalcet HCl 30 MG TAB PO SCH (08:37)
[2018-03-21] MEDS: Aspirin 325 MG TAB PO SCH (08:37)
[2018-03-21] MEDS: Sevelamer Carbonate 800 MG TAB PO SCH ×3 (08:37→17:10)
[2018-03-21] MEDS: Anastrozole 1 MG TAB PO SCH (08:37)
[2018-03-21] MEDS: Folic Acid/Vit B Comp W-C PO SCH (08:37)
[2018-03-21] MEDS: HYDROcodone/Acetaminophen 10/325 mg Tablet PO SCH ×2 (08:38→15:03)
[2018-03-21] MEDS: Simethicone Chewable 80 MG TAB PO SCH (08:39)
[2018-03-21 11:43] LABS: Hemoglobin 12.7 g/dL (12.0-16.0); Platelet Count 242 thou/uL (130-400)
[2018-03-21 15:02] VITALS: BP 121/56; TEMP 99.4
[2018-03-21] MEDS: Warfarin Sodium 5 MG TAB PO SCH (17:10)
--- NOTE | 2018-04-01 14:19 | EKG ---
Test Reason : CP Blood Pressure : / mmHG Vent. Rate : 071 BPM Atrial Rate : 071 BPM P-R Int : 138 ms QRS Dur : 078 ms QT Int : 466 ms P-R-T Axes : 024 -01 025 degrees QTc Int : 506 ms Normal sinus rhythm Normal ECG Confirmed by TERRY CAMACHO ([id number]), news copy editor SANTIAGO SAMRIENTO ([id number]) on 04/01/2018 2:19:25 PM Referred By: JANICE Confirmed By:TERRY CAMACHO
== END 2018-03-21 17:31 | disposition home or self-care (01) | DRG 286 ==
LOC: ERS 19:53 → 2SW 21:20 → OBSVTOIN 03-14 14:30 → 2NO 03-14 14:50
PROVIDERS: ADMIT Family Medicine; ATTEND Family Medicine
PROC: 4A023N7 Measurement of Cardiac Sampling and Pressure, Left Heart, Percutaneous Approach (ICD-10-PCS; principal; 2018-03-14)
PROC: B211YZZ Fluoroscopy of Multiple Coronary Arteries using Other Contrast (ICD-10-PCS; 2018-03-14)
PROC: B215YZZ Fluoroscopy of Left Heart using Other Contrast (ICD-10-PCS; 2018-03-14)
DX: I13.2 Hypertensive heart and chronic kidney disease with heart failure and with stage 5 chronic kidney disease, or end stage renal disease (principal); N18.6 End stage renal disease; Z68.41 Body mass index [BMI] 40.0-44.9, adult; I50.32 Chronic diastolic (congestive) heart failure; E11.22 Type 2 diabetes mellitus with diabetic chronic kidney disease; Z99.2 Dependence on renal dialysis; Z79.01 Long term (current) use of anticoagulants; Z86.718 Personal history of other venous thrombosis and embolism; Z86.711 Personal history of pulmonary embolism; I48.2 Chronic atrial fibrillation; D64.9 Anemia, unspecified; E66.01 Morbid (severe) obesity due to excess calories; Z85.3 Personal history of malignant neoplasm of breast; G89.29 Other chronic pain; Z96.651 Presence of right artificial knee joint; Z90.13 Acquired absence of bilateral breasts and nipples
CPT/HCPCS: 36415; 36416; 71045; 80048; 80061; 83880; 84484; 85014; 85018; 85025; 85049; 85610; 85730; 87340; 90935; 93005; 93306; 93458; 94760; C1769; G0257; G8978-GP-CJ; G8979-GP-CJ; G8980-GP-CJ; G8987-GO-CI; G8988-GO-CI; G8989-GO-CI; J1644; J2001; Q0162

== ENCOUNTER 2018-04-28 22:43 | Inpatient (IN) | payer MEDICARE, OTHER ==
--- NOTE | 2018-04-28 23:05 | RAD ---
FRONTAL VIEW CHEST: 04/28/18 COMPARISON: 03/13/18 INDICATION: Chest pain. FINDINGS: There is enlargement of the cardiac silhouette and prominence of the pulmonary vasculature. Bilateral perihilar opacity is present as well as a patchy right basilar consolidation. Hazy density at each l ower chest may relate to associated pleural fluid more notable on the right, although limited on the basis of the portable frontal view. Vascular calcifications present. IMPRESSION: Evidence to indicate decompensated CHF. Bilateral pleural fluid suspected. Patchy right basilar density could relate to prominence of infrahilar vasculature or a superimposed r ight basilar pneumonia. Recommend continued imaging followup. POS: [facility]
[2018-04-28 23:35] LABS: Hemoglobin 11.4 g/dL (12.0-16.0); Mean Corpuscular HGB CONC 34.3 g/dL (32.0-36.0); Mean Corpuscular Hemoglobin 31.8 pg (27.0-31.0); Mean Corpuscular Volume 92.7 fL (78.0-98.0); Mean Platelet Volume 6.8 fL (7.4-10.4); Platelet Count 322 thou/uL (130-400); RBC Distribution Width 14.7 % (11.5-14.5); Red Blood Cell (RBC) Count 3.59 mill/uL (4.20-5.40); White Blood Cell (WBC) Count 8.9 thou/uL (4.8-10.8)
[2018-04-28 23:38] LABS: ALT (SGPT) 11 U/L (8-55); AST (SGOT) 17 U/L (5-34); Albumin 4.1 g/dL (3.4-4.8); Alkaline Phosphatase 130 U/L (40-150); Anion Gap 19 mmol/L (10-20); BUN (Urea Nitrogen) 22 mg/dL (9.8-20.1); Bilirubin, Total 0.4 mg/dL (0.2-1.2); Calc. Creatinine Clearance 0 mL/min (70-130); Calcium 8.8 mg/dL (7.8-10.44); Carbon Dioxide 28 mmol/L (23-31); Chloride 97 mmol/L (98-107); Estimated GFR-MDRD 9; Globulin 3.1 g/dL (2.4-3.5); Glucose 170 mg/dL (83-110); Lipase 31 U/L (8-78); Potassium 3.6 mmol/L (3.5-5.1); Protein, Total 7.2 g/dL (6.0-8.3); Sodium 140 mmol/L (136-145)
[2018-04-28 23:43] LABS: CKMB 1.1 ng/mL (0-6.6); Troponin I 0.019 ng/mL (< 0.028)
[2018-04-28 23:44] LABS: Band 1 % (5-11); Eosinophils 2 % (0-10); Lymphocytes 15 % (21-51); MDiff Complete? YES; Monocytes 11 % (0-10); Neutrophil 70 % (42-75)
[2018-04-28] MEDS ORDERED: Acetaminophen 500 MG TAB ONE (23:46)
[2018-04-28 23:55] LABS: INR-International Normal Ratio 1.9
[2018-04-28 23:56] LABS: PTT 50.1 SEC (22.9-36.1)
[2018-04-29] MEDS ORDERED: Piperacillin/Tazobactam 4.5 GM VIAL ONE (04:13)
[2018-04-29 04:15] LABS: Troponin I 0.025 ng/mL (< 0.028)
[2018-04-29] MEDS ORDERED: Nitroglycerin 0.4 MG TAB (25 Tab Bottle) SL PRN ×2 (05:49→06:30)
[2018-04-29] MEDS ORDERED: Ondansetron HCl/PF 4 MG/2 ML Vial IVP PRN (05:51)
[2018-04-29] MEDS ORDERED: HOLD VANCOMYCIN FOR LEVEL >20 FS SCH (06:45)
[2018-04-29] MEDS ORDERED: Vancomycin HCl 1 GM in Premix Bag 1 BAG IVPB SCH (06:45)
[2018-04-29] MEDS ORDERED: Vancomycin HCl 500 MG in Sodium Chloride 0.9% 100 ML IVPB SCH ×2 (06:45→07:00)
[2018-04-29] MEDS ORDERED: Vancomycin HCl 1.25 GM in Sodium Chloride 0.9% 250 ML 250 ML IVPB SCH (06:45)
[2018-04-29] MEDS ORDERED: Vancomycin HCl 1.5 GM in Sodium Chloride 0.9% 250 ML 300 ML IVPB SCH (06:45)
[2018-04-29] MEDS ORDERED: Vancomycin HCl 750 MG in Sodium Chloride 0.9% 250 ML 250 ML IVPB SCH (06:45)
[2018-04-29 07:04] LABS: Troponin I 0.024 ng/mL (< 0.028)
[2018-04-29 07:42] VITALS: BMI 35.5
[2018-04-29 07:42] LABS: Hemoglobin 10.3 g/dL (12.0-16.0); Platelet Count 283 thou/uL (130-400)
--- NOTE | 2018-04-29 07:55 | HP ---
PRIMARY CARE DOCTOR: Neela Hugo M.D. TIME OF EVALUATION: 05:50 a.m. CODE STATUS: FULL CODE. CHIEF COMPLAINT: The patient presented with chest pain. HISTORY OF PRESENT ILLNESS: This is a 78 years old female patient with past medical history of right -sided chest pain that has been present for the past few hours, pain is worsened with deep breath and cough, no alleviating risk factors, it gets better by itself. The symptoms started gradually gettin g worse, especially for the past 24 hours. REVIEW OF SYSTEMS: Constitutional: No fever or chills, generalized weakness. Respiratory: The pat ient reported cough, pleuritic chest pain, shortness of breath. Cardiovascular: No chest pain, palp itation, shortness of breath. Gastrointestinal: No nausea, no vomiting, no diarrhea, no abdominal p ain. MILL ORDER SCHEDULER: No dizziness, headache, or feeling lightheaded. Genitourinary: No burning on urination. Extremities: No leg swelling. REVIEW OF SYSTEMS: All other systems were reviewed and negative except for the findings mentioned ab ove in the HPI. PAST MEDICAL HISTORY: Diabetes, type 2; hyperlipidemia; hypertension; breast cancer; end-stage renal disease, on hemodialysis; aortic valve disorder; mitral valve regurgitation. PAST SURGICAL HISTORY: History of appendectomy, cholecystectomy, hysterectomy, mastectomy, right kne e replacement, bilateral cataracts. PSYCHIATRIC HISTORY: Depression. SOCIAL HISTORY: No alcohol, no drugs. Former tobacco user. Lives at home alone. The patient quit smoking more than 10 years ago. KNOWN ALLERGIES: No known drug allergies. REPORTED MEDICATIONS: Warfarin, allopurinol, atorvastatin, folic acid, gabapentin, Coreg, Renvela, S ensipar, Tianna-Kamala, pantoprazole, sertraline. PHYSICAL EXAMINATION: VITAL SIGNS: On presentation, blood pressure 143/79 with heart rate 100, respiratory rate was 18, te mperature 98.5. GENERAL APPEARANCE: The patient is alert, oriented, not in any acute distress. HEENT: Eyes: Normal conjunctivae. Moist oral mucosa. Eyes, anicteric. NECK: No JVD. RESPIRATORY: Bilateral air entry, no rales, no wheezing. Symmetric expansion. CARDIOVASCULAR: Normal rate and regular rhythm. No murmurs, no gallop, no edema. GASTROINTESTINAL: Abdomen is soft. Normal bowel sounds. MUSCULOSKELETAL: Baseline range of motion and strength. No tenderness. SKIN: Warm and intact. No pallor, no rash, no redness. NEUROLOGICAL: Baseline sensory. Although patient is confused, no evidence of any new focal weakness . Baseline speech. Cranial nerves seem to be intact. PSYCHIATRIC: The patient ; however, the patient has been lethargic during the interview. She i s arousable, she is oriented, but falls asleep very quickly. EKG was reviewed. It showed normal sinus rhythm, possible left atrial enlargement, nonspecific ST- a nd T-wave abnormalities, prolonged QT, abnormal EKG, ventricular rate 96, AK 148, QRS 78, QT correcte d 490. Chest x-ray was reviewed. The patient had evidence to indicate decompensated congestive hear t failure, bilateral pleural fluid suspected. Patchy right basilar prominence of infrahilar mu scular or a superimposed right basilar pneumonia. LABORATORY DATA: Labs were reviewed. The patient has white count 8.9, hemoglobin 11.4, MCV 92.7, MC H 31.8, platelet count 332. INR 1.9. Sodium 140, potassium 3.6, chloride 97, carbon dioxide 28, ani on gap 19, BUN 22, creatinine 5.6. GFR 9, glucose 170. Beta natriuretic peptide 470 and troponin perez s been negative x2. ASSESSMENT AND PLAN: The patient will be placed in the hospital with following medical problems: 1. Possible right lower lobe pneumonia, seen on chest x-ray. The patient has been lethargic, with t he chest pain in the right side. We will treat with broad-spectrum antibiotics due to possibility fo r healthcare-associated pneumonia. We will send cultures. We will adjust the treatment as needed de pending on culture results. 2. End-stage renal disease, on hemodialysis. Follow up with Dr. Mcqueen. Will need to be seen as inpat ient for dialysis. 3. Hyperlipidemia. Continue statins, reconcile home medications. Low cholesterol diet is advised. 4. Diastolic dysfunction, some possible pulmonary edema on the chest x-ray. We will reconcile home medications. Patient will need hemodialysis for fluid removal. 5. Uncontrolled hypertension, on presentation. Reconcile home medications. We will adjust treatmen t as needed. 6. Deep venous thrombosis prophylaxis. The patient is on Coumadin.
--- NOTE | 2018-04-29 08:02 | RAD ---
RIGHT SHOULDER 3 VIEWS: Date: 04/28/18 HISTORY: Pain. COMPARISON: None. FINDINGS: Multiple surgical clips at right axilla. No acute displaced fracture or malalignment. Moderate degene rative disease acromioclavicular joint. Visualized ribs are unremarkable. Previous mild pulmonary igor ous congestion. IMPRESSION: Chronic changes. No acute abnormality. POS: [facility]
[2018-04-29] MEDS ORDERED: Prevnar 13-Val Conj/PF 0.5 ML SYRINGE IM ONE (08:15)
--- NOTE | 2018-04-29 08:21 | ULT ---
PRELIMINARY REPORT/[facility]/EMERGENCY AFTER HOURS PROCEDURE: EXAM: US Duplex Right Upper Extremity Veins EXAM DATE/TIME: 04/29/2018 1:46 AM CLINICAL HISTORY: 78 years old, female; Pain; Other: Rt elbow pain, dialysis today; Prior surgery; Surgery date: 6+ mon ths; Surgery type: Fistula TECHNIQUE: Real-time duplex ultrasound scan of the right upper extremity veins integrating B-mode twodimensional vascular structure, Doppler spectral analysis, color flow Doppler imaging and compression. COMPARISON: No relevant prior studies available. FINDINGS: Deep veins: Thin nonocclusive mural thrombus in right IJ vein. No DVT in the subclavian, axillary, or brachial veins. The veins demonstrate normal color flow, are normally compressible, with normal phas ic flow and/or augmentation response. Superficial veins: No thrombus in the visualized basilic and cephalic veins. Soft tissues: No acute findings. Fistula in right upper extremity appears patent. IMPRESSION: No evidence of acute DVT right upper extremity duplex venous ultrasound. Suspect nonocclusive chronic thrombus vs. web in right IJ vein. Patent right upper extremity fistula. Thank you for allowing us to participate in the care of your patient. Dictated and Authenticated by: Stephanie Torres MD 04/29/2018 4:03 AM Central Time ([place] & [place]) FINAL REPORT BY DR. AGUERO EMERGENCY AFTER HOURS STUDY ULTRASOUND DOPPLER DUPLEX VENOUS RIGHT UPPER EXTREMITY: Date: 04/29/18 HISTORY: 78-year-old female with right upper extremity pain. TECHNIQUE: Rodgers scale, color flow, and spectral analysis of major veins of right upper extremity. FINDINGS: Very thin, hyperechoic linear short focus demonstrated on a single transverse image of the right inte rnal jugular vein may be a nonocclusive thrombus. The right internal jugular vein is completely compr essible, and has blood flow. No thrombosis of any of the other veins of the right upper extremity. Th e AV dialysis fistula is patent. This report agrees with the preliminary report by Jose. IMPRESSION: 1. Patent AV dialysis fistula. 2. No occlusive thrombus. 3. A thin, linear, hyperechoic lesion within the lumen of the right internal jugular vein may repres ent a nonocclusive thrombus. POS: [facility]
[2018-04-29] MEDS: Sevelamer Carbonate 800 MG TAB PO SCH ×3 (09:30→16:24)
[2018-04-29] MEDS: Anastrozole 1 MG TAB PO SCH (09:30)
[2018-04-29] MEDS: Aspirin 325 MG TAB PO SCH (09:30)
[2018-04-29] MEDS: Folic Acid/Vit B Comp W-C PO SCH (09:31)
[2018-04-29] MEDS: Cinacalcet HCl 30 MG TAB PO SCH (09:31)
[2018-04-29] MEDS: Gabapentin 300 MG CAP PO SCH ×3 (09:32→21:05)
[2018-04-29] MEDS: Atorvastatin Calcium 10 MG TAB PO SCH (09:32)
[2018-04-29] MEDS: Piperacillin/Tazobactam 2.25 GM in Sodium Chloride 0.9% 100 ML IVPB SCH ×2 (09:33→21:04)
[2018-04-29] MEDS: Allopurinol 100 MG TAB PO SCH (09:33)
[2018-04-29] MEDS: HYDROcodone/Acetaminophen 10/325 mg Tablet PO PRN (12:44)
--- NOTE | 2018-04-29 16:15 | PDOC.EVN ---
Event Note - Event Note Event Note: pt seen and examined.candelaria reviewed in detail c/p R sided shoulder and back pain that goes down to leg c/o malaise/weakness,mild SOB CTA b/l but caorse TTP R side of chest posteriorly Cont ABx. symptoms likley due to PNA Will r/o PE w V/Q scan add prn tramadol. cont supportive care. am labs
[2018-04-29] MEDS: traMADol HCl 50 MG TAB PO PRN ×2 (16:22→21:04)
[2018-04-29] MEDS: Warfarin Sodium 2.5 MG TAB PO SCH (16:23)
--- NOTE | 2018-04-29 16:59 | NM ---
NUCLEAR MEDICINE VENTILATION PERFUSION SCAN: (V/Q SCAN) 04/29/18 HISTORY: 78-year-old female with chest pain and dyspnea. Rule out PE. TECHNIQUE: Xenon-133 gas dose: 13.6 millicuries. [id number] dose: 6.4 millicuries. The patient inhaled Xenon-133 gas, and dynamic ventilation scintigraphy was performed. [id number] was injected IV, and multiple perfusion scintigraphic views were obtained. FINDINGS: Linear or wedge-shaped perfusion defect in the left upper lobe appears similar to the 2014 and 2012 V Q scans, and probably represents scar. There are no new moderate-sized or large perfusion defects. T here are no significant ventilation/perfusion mismatches. IMPRESSION: Low probability for pulmonary thromboembolism. jn [] POS: [facility]
[2018-04-29] MEDS: Carvedilol 3.125 MG TAB PO SCH (21:05)
[2018-04-30] MEDS: traMADol HCl 50 MG TAB PO PRN ×3 (05:25→20:22)
[2018-04-30 06:27] LABS: #Basophils 0.1 thou/uL (0.0-0.2); #Eosinphils 0.3 thou/uL (0.0-0.7); #Lymphocytes 1.2 thou/uL (1.20-3.40); #Monocytes 0.8 thou/uL (0.11-0.59); #Neutrophils 5.8 thou/uL (1.40-6.50); %Basophils 0.7 % (0.0-1.0); %Eosinophils 3.5 % (0.0-10.0); %Monocytes 10.1 % (0.0-10.0); %Neutrophils 70.7 % (42.0-75.0); Hemoglobin 10.7 g/dL (12.0-16.0); Mean Corpuscular HGB CONC 33.4 g/dL (32.0-36.0); Mean Corpuscular Hemoglobin 31.4 pg (27.0-31.0); Mean Corpuscular Volume 94.3 fL (78.0-98.0); Mean Platelet Volume 7.2 fL (7.4-10.4); Platelet Count 299 thou/uL (130-400); RBC Distribution Width 14.6 % (11.5-14.5); Red Blood Cell (RBC) Count 3.39 mill/uL (4.20-5.40); White Blood Cell (WBC) Count 8.2 thou/uL (4.8-10.8)
[2018-04-30 06:55] LABS: Anion Gap 17 mmol/L (10-20); BUN (Urea Nitrogen) 35 mg/dL (9.8-20.1); Calc. Creatinine Clearance 8 mL/min (70-130); Calcium 8.1 mg/dL (7.8-10.44); Carbon Dioxide 28 mmol/L (23-31); Chloride 98 mmol/L (98-107); Estimated GFR-MDRD 5; Glucose 101 mg/dL (83-110); Potassium 3.9 mmol/L (3.5-5.1); Sodium 139 mmol/L (136-145)
[2018-04-30] MEDS: Piperacillin/Tazobactam 2.25 GM in Sodium Chloride 0.9% 100 ML IVPB SCH ×2 (08:26→20:24)
[2018-04-30] MEDS: Sevelamer Carbonate 800 MG TAB PO SCH ×3 (08:26→18:34)
[2018-04-30] MEDS: Folic Acid/Vit B Comp W-C PO SCH (08:27)
[2018-04-30] MEDS: Cinacalcet HCl 30 MG TAB PO SCH (08:27)
[2018-04-30] MEDS: Allopurinol 100 MG TAB PO SCH (08:27)
[2018-04-30] MEDS: Aspirin 325 MG TAB PO SCH (08:27)
[2018-04-30] MEDS: Atorvastatin Calcium 10 MG TAB PO SCH (08:27)
[2018-04-30] MEDS: Gabapentin 300 MG CAP PO SCH ×2 (08:27→20:22)
[2018-04-30] MEDS: Anastrozole 1 MG TAB PO SCH (08:28)
[2018-04-30 09:13] LABS: Prothrombin Time 22.9 SEC (12.0-14.7)
--- NOTE | 2018-04-30 10:56 | CON ---
DATE OF CONSULTATION: 04/30/2018 HISTORY OF PRESENT ILLNESS: Ms. Ansari is a 78-year-old black female with ESRD - on maintenance hemod ialysis and presented with right-sided chest pain. She described it as pleuritic in nature. A V/Q s can was done which showed low probability. Chest x-ray showed increased lung markings as well as? of right lung infiltrate. Empiric IV antibiotic has been started. Of interest, this patient has been complaining of some productive cough, but she denies overt fever. However, she feels that she may be having some chills at home. We are being consulted for her maintenance hemodialysis. Even though the chest x-ray shows increased lung markings, the patient does not show any signs of respiratory distress. REVIEW OF SYSTEMS: Positive for right pleuritic chest pain. No nausea. Denies any overt shortness of breath, no fever, but positive for chills, no syncopal episode. Positive for productive cough? n o abdominal pain. Appetite and energy level is decreased. No headache, no diplopia, no hematochezia , no melena, no hematemesis, no syncopal episode, no diarrhea or constipation. MEDICATIONS: Medications of 04/30/2018 shows Zyloprim 100 mg daily, Arimidex 1 mg daily, aspirin 325 mg once a day, Lipitor 10 mg at bedtime, Coreg 3.125 mg b.i.d., Sensipar 30 mg tab once a day, furos emide 40 mg IV q.12 hours., Neurontin 300 mg p.o. t.i.d., heparin on drip per protocol, lovastatin 20 mg at bedtime, status post vancomycin, Protonix 40 mg tab once a day, Zosyn 2.25 grams IV q.12, Zolo ft 50 mg at bedtime, Renvela 800 mg 2 tabs t.i.d. with meals, tramadol 50 mg q.4 p.r.n. PAST MEDICAL HISTORY: 1. ESRD, currently on maintenance hemodialysis Tuesday, Tuesday, and Tuesday. 2. Status post CHF. 3. History of morbid obesity. 4. Status post PE and DVT. 5. Hypertension. 6. History of hyperlipidemia. 7. Chronic pain. 8. Type 2 diabetes mellitus. 9. Breast cancer in remission. 10. Depression. PAST SURGICAL HISTORY: 1. Status post colonoscopy. 2. Status post breast biopsy. 3. Status post breast mastectomy for breast cancer. 4. Status post right knee replacement. 5. Status post cuffed hemodialysis catheter placement. 6. Status post AV fistula placement. 7. Status post laparoscopic cholecystectomy. SOCIAL HISTORY: Patient lives in [place], five children. Education: 11th grade. No history of smoking, no alcohol use, no IV drug abuse. Status post blood transfusion. Sedentary lifestyle. ALLERGIES: None. TRAUMA: None. IMMUNIZATIONS: Up to date. HOSPITALIZATIONS: Please see past medical history. FAMILY HISTORY: Positive family history of ESRD. One sister on dialysis. PHYSICAL EXAMINATION: VITAL SIGNS: Blood pressure is noted at 129/64, heart rate 77, respiratory rate 14, temperature 98.7 , pulse ox 98%. GENERAL: Awake, alert, comfortable, not in distress. SKIN: Adequate turgor. HEENT: She has pinkish conjunctivae, anicteric sclerae. NECK: No neck mass, no carotid bruits, no JVD. CHEST: No deformities. LUNGS: Decreased breath sounds. HEART: Normal sinus rhythm. No murmur, no gallops, no rubs. ABDOMEN: Globular, soft, nontender. No masses. EXTREMITIES: No edema, no deformities. MEDICATIONS: Medications of 04/30/2018; white count 8.2, hemoglobin 10.7, sodium 139, potassium 3.9, chloride 98, carbon dioxide 28, BUN 35, creatinine 8.53, glucose 101, calcium 8.1. IMAGING DATA: 1. Chest x-ray of 04/28/2018 shows increased lung markings with patchy right basilar density which c ould relate to possible right basilar pneumonia. 2. VQ scan - low probability. ASSESSMENT AND PLAN: 1. Right-sided chest pain - this is pleuritic in nature. This may be an underlying pneumonia. She is on empiric IV antibiotics. The V/Q scan was not suggestive of a pulmonary embolism. However, wit h her history of pulmonary embolism and deep venous thrombosis, she is placed on IV heparin. This pa tient was previously on Coumadin. 2. End-stage renal disease, stable. There is no indication for any emergent hemodialysis. Even tho ugh the chest x-ray shows increased lung markings with stable respiratory status - oxygenating adequa tely with 2 liters and the patient is not in respiratory distress. I will await tomorrow to do the d ialysis. Again, fluid removal will be done as tolerated by the patient. My last review of her Kt/V suggests she is adequately dialyzed with the current dialysis regimen. Thank you for the consult. We will continue to follow.
--- NOTE | 2018-04-30 14:39 | PDOC.PN ---
- Subjective Encounter Start Date: 04/30/18 Encounter Start Time: 14:37 Subjective: feels better. no more pain in chest but feels dizzy when gets up - Objective Resuscitation Status: Resuscitation Status FULL:Full Resuscitation MAR Reviewed: Yes Vital Signs & Weight: Vital Signs (12 hours) Temp Pulse Resp BP BP BP Pulse Ox 04/30/18 11:48 98.5 F 79 18 115/55 L 96 04/30/18 08:17 98.7 F 77 14 129/64 98 04/30/18 04:00 98.2 F 72 16 114/55 L 96 Weight Weight 225 lb 4.8 oz I&O: 04/29/18 04/30/18 05/01/18 06:59 06:59 06:59 Intake Total 1310 Balance 1310 Result Diagrams: 04/30/18 06:10 04/30/18 06:10 Additional Labs: Accuchecks 04/30/18 04/30/18 04/29/18 10:51 06:02 21:03 POC Glucose 173 H 106 123 H 04/29/18 16:50 POC Glucose 118 H Microbiology 04/29/18 06:25 Venous blood - Left Arm Blood Culture - Preliminary Specimen has been received and culture in progress. No Growth to date. 04/29/18 06:22 Venous blood - Left Hand Blood Culture - Preliminary Specimen has been received and culture in progress. No Growth to date. Laboratory Tests 03/20/18 04/28/18 04/28/18 02:47 23:03 23:08 INR 1.9 Creatinine 9.69 H 5.68 H 04/29/18 04/30/18 04/30/18 09:31 06:10 08:50 INR 2.0 2.0 Creatinine 8.53 H labs reviewed Phys Exam - Physical Examination Constitutional: NAD sleeping in recliner.easily woken up HEENT: PERRLA, moist MMs, sclera anicteric, oral pharynx no lesions Neck: no nodes, no JVD, supple, full ROM Respiratory: no wheezing, no rales, no rhonchi, clear to auscultation bilateral Cardiovascular: RRR, no significant murmur Gastrointestinal: soft, non-tender, no distention, positive bowel sounds Musculoskeletal: no edema, pulses present Neurological: non-focal, normal sensation, moves all 4 limbs Psychiatric: normal affect, A&O x 3 Skin: no rash Dx/Plan (1) PNA (pneumonia) Code(s): J18.9 - PNEUMONIA, UNSPECIFIED ORGANISM Status: Acute Qualifiers: Laterality: right (2) Chest pain Code(s): R07.9 - CHEST PAIN, UNSPECIFIED Status: Acute Comment: likely musculoskeletal pain since pain was reproducible with deep palpation. Normal coronaries on cath 02/2018.V/Q low probability. Likley due to H/O B/L mastectomy.Multiple admission for same with negative work up in the past (3) Anticoagulant long-term use Code(s): Z79.01 - RETIREMENT (CURRENT) USE OF ANTICOAGULANTS Status: Chronic Comment: Coumadin for shelter prophylaxis due to hx of DVT/PE, continue serial PT/INR, Coumadin 5mg daily (4) Breast CA Status: Chronic Qualifiers: Laterality: bilateral Comment: S/P B/L mastectomy (5) DM2 (diabetes mellitus, type 2) Status: Chronic Comment: controlled and at goal (6) ESRD on dialysis Code(s): N18.6 - END STAGE RENAL DISEASE; Z99.2 - DEPENDENCE ON RENAL DIALYSIS Status: Chronic Comment: HD per Renal service (7) Hypertension Code(s): I10 - ESSENTIAL (PRIMARY) HYPERTENSION Status: Chronic Qualifiers: Comment: Stable, continue current antihypertensive regimen (8) 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 fib) - Plan plan discussed w/ family, continue antibiotics, PT/OT, DVT proph w/SCDs cont empiric antibiotics.Follow blood Cx -: cont home meds as below. -: Hemodialysis w daily labs.monitor renal Fx -: encourage ambulation.add OT,PT. -: DC planning done & pt undecided if she wants rehab Vs HH * .Hemodynamically stable.Transfer to medical * am labs Review of Systems - Review of Systems Constitutional: negative: fever, chills, sweats, weakness, malaise, other ENT: negative: Ear Pain, Ear Discharge, Nose Pain, Nose Discharge, Nose Congestion, Mouth Pain, Mouth Swelling, Throat Pain, Throat Swelling, Other Respiratory: negative: Cough, Dry, Shortness of Breath, Hemoptysis, SOB with Excertion, Pleuritic Pain, Sputum, Wheezing Cardiovascular: light headedness. negative: chest pain, palpitations, orthopnea , paroxysmal nocturnal dyspnea, edema, other Gastrointestinal: negative: Nausea, Vomiting, Abdominal Pain, Diarrhea, Constipation, Melena, Hematochezia, Other Genitourinary: negative: Dysuria, Frequency, Incontinence, Hematuria, Retention , Other Musculoskeletal: negative: Neck Pain, Shoulder Pain, Arm Pain, Back Pain, Hand Pain, Leg Pain, Foot Pain, Other Neurological: negative: Weakness, Numbness, Incoordination, Change in Speech, Confusion, Seizures, Other - Medications/Allergies Allergies/Adverse Reactions: Allergies Allergy/AdvReac Type Severity Reaction Status Date / Time No Known Drug Allergies Allergy Unknown Verified 04/29/18 06:42 Medications: Current Medications Acetaminophen (Tylenol) 650 mg PO Q4H PRN PRN Reason: Headache/Fever or Pain Hydrocodone Bitart/Acetaminophen ([place] 10/325) 1 tab PO TID PRN PRN Reason: Pain 7-10 Last Admin: 04/29/18 12:44 Dose: 1 tab Allopurinol (Zyloprim) 100 mg PO DAILY [facility] Last Admin: 04/30/18 08:27 Dose: 100 mg Anastrozole (Arimidex) 1 mg PO DAILY [facility] Last Admin: 04/30/18 08:28 Dose: 1 mg Aspirin (Aspirin) 325 mg PO DAILY [facility] Last Admin: 04/30/18 08:27 Dose: 325 mg Atorvastatin Calcium (Lipitor) 10 mg PO DAILY [facility] Last Admin: 04/30/18 08:27 Dose: 10 mg Carvedilol (Coreg) 3.125 mg PO SuTuThSa@2100 [facility] Last Admin: 04/29/18 21:05 Dose: 3.125 mg Cinacalcet (Sensipar) 30 mg PO DAILY [facility] Last Admin: 04/30/18 08:27 Dose: 30 mg Gabapentin (Neurontin) 300 mg PO BID [facility] Vancomycin HCl 1.25 gm/ Sodium (Chloride) 250 mls @ 166.667 mls/hr IVPB WILLCALL [facility] Vancomycin HCl 1 gm/ Device 200 mls @ 200 mls/hr IVPB WILLCALL [facility] Vancomycin HCl 750 mg/ Sodium (Chloride) 250 mls @ 250 mls/hr IVPB WILLCALL [facility] Vancomycin HCl 500 mg/ Sodium (Chloride) 100 mls @ 100 mls/hr IVPB WILLCALL [facility] Piperacillin Sod/Tazobactam (Sod 2.25 gm/ Sodium Chloride) 100 mls @ 200 mls/ hr IVPB Q12HR [facility] Last Admin: 04/30/18 08:26 Dose: 100 mls Nitroglycerin (Nitrostat) 0.4 mg SL Q5MIN PRN PRN Reason: Chest Pain Hold Vancomycin For (Level >20) 0 each FS .AT DIALYSIS [facility] Ondansetron HCl (Zofran) 4 mg IVP Q6H PRN PRN Reason: Nausea/Vomiting Pantoprazole Sodium (Protonix) 40 mg PO BID [facility] Last Admin: 04/30/18 08:27 Dose: 40 mg Sertraline HCl (Zoloft) 50 mg PO DAILY [facility] Last Admin: 04/30/18 08:27 Dose: 50 mg Sevelamer Carbonate (Renvela) 1,600 mg PO TID-WM [facility] Last Admin: 04/30/18 11:51 Dose: 1,600 mg Sodium Chloride (Flush - Normal Saline) 10 ml IVF Q12HR [facility] Last Admin: 04/30/18 08:26 Dose: 10 ml Sodium Chloride (Flush - Normal Saline) 10 ml IVF PRN PRN PRN Reason: Saline Flush Tramadol HCl (Ultram) 50 mg PO Q4H PRN PRN Reason: Pain Last Admin: 04/30/18 11:51 Dose: 50 mg Vitamin B Complex/Vit C/Folic Acid (Nephro-Kamala Tablet) 1 tab PO DAILY [facility] Last Admin: 04/30/18 08:27 Dose: 1 tab Warfarin Sodium (Coumadin) 2.5 mg PO 1700 [facility] Last Admin: 04/29/18 16:23 Dose: 2.5 mg
[2018-04-30] MEDS: HYDROcodone/Acetaminophen 10/325 mg Tablet PO PRN (17:23)
[2018-04-30] MEDS: Warfarin Sodium 2.5 MG TAB PO SCH (18:34)
[2018-04-30] MEDS: Carvedilol 3.125 MG TAB PO SCH (20:22)
[2018-04-30] MEDS: Acetaminophen 325 MG TAB PO PRN (20:23)
[2018-05-01] MEDS: HYDROcodone/Acetaminophen 10/325 mg Tablet PO PRN ×3 (01:19→17:43)
[2018-05-01] MEDS: traMADol HCl 50 MG TAB PO PRN ×2 (05:19→20:26)
[2018-05-01] MEDS: Acetaminophen 325 MG TAB PO PRN ×2 (05:19→20:27)
[2018-05-01 08:19] LABS: Hemoglobin 10.1 g/dL (12.0-16.0); Platelet Count 295 thou/uL (130-400)
[2018-05-01 08:27] LABS: INR-International Normal Ratio 2.2; Prothrombin Time 24.5 SEC (12.0-14.7)
[2018-05-01] MEDS: Sevelamer Carbonate 800 MG TAB PO SCH ×3 (09:00→17:41)
[2018-05-01] MEDS: Cinacalcet HCl 30 MG TAB PO SCH (09:00)
[2018-05-01] MEDS ORDERED: Aspirin 81 mg Enteric Coated Tablet PO SCH (09:00)
[2018-05-01] MEDS: Allopurinol 100 MG TAB PO SCH (09:00)
[2018-05-01] MEDS: Atorvastatin Calcium 10 MG TAB PO SCH (09:01)
[2018-05-01] MEDS: Anastrozole 1 MG TAB PO SCH (09:01)
[2018-05-01] MEDS: Folic Acid/Vit B Comp W-C PO SCH (09:01)
[2018-05-01] MEDS: Piperacillin/Tazobactam 2.25 GM in Sodium Chloride 0.9% 100 ML IVPB SCH ×2 (09:01→20:27)
[2018-05-01] MEDS: Gabapentin 300 MG CAP PO SCH ×2 (09:01→20:27)
[2018-05-01 16:00] LABS: Hemoglobin 11.1 g/dL (12.0-16.0)
[2018-05-01 16:38] LABS: HBSAg Index 0.23 S/CO (0-0.99); Hep B Surf Ag Non-Reactive S/CO (NonReactive)
[2018-05-01] MEDS: Warfarin Sodium 2.5 MG TAB PO SCH (19:04)
--- NOTE | 2018-05-01 21:10 | PDOC.PN ---
- Subjective Encounter Start Date: 05/01/18 Encounter Start Time: 10:30 Patient seen and examined for Pneumonia. BRBPR earlier today - FOBT +. No new complaints. No overnight events. Still has Rt sided pleuritic CP - Objective Resuscitation Status: Resuscitation Status FULL:Full Resuscitation MAR Reviewed: Yes Vital Signs & Weight: Vital Signs (12 hours) Temp Pulse Resp BP BP Pulse Ox 05/01/18 19:43 99.1 F 80 18 106/56 L 94 L 05/01/18 17:47 97.4 F L 85 20 128/65 95 05/01/18 11:25 97.6 F 94 20 110/75 05/01/18 09:29 98.5 F 70 18 Weight Weight 225 lb 4.8 oz I&O: 04/30/18 05/01/18 05/02/18 06:59 06:59 06:59 Intake Total 1310 390 480 Output Total 3650 Balance 1310 390 -3170 Result Diagrams: 05/01/18 15:20 04/30/18 06:10 Additional Labs: Accuchecks 05/01/18 05/01/18 05/01/18 19:24 17:36 05:25 POC Glucose 166 H 107 112 H Phys Exam - Physical Examination Constitutional: NAD Respiratory: no wheezing, no rhonchi Rt sided rales Cardiovascular: RRR, no rub Gastrointestinal: soft, non-tender, positive bowel sounds Musculoskeletal: no edema Neurological: non-focal, moves all 4 limbs Dx/Plan - Plan IMPRESSION: 1. LGI bleeding - hemorrhoidal Monitor HH I d/w Dr Lipscomb in the evening - ok to resume anticoag AM labs Outpt GI follow up 2. RLL Pneumonia Change Atbx to PO 3. ESRD on dialysis Dialysis per Nephro 4. Obesity BMI 36 5. HTN Cont Coreg 6. Chronic Anticoag. Other issues per previous notes Disposition - prob in AM if stable Review of Systems - Review of Systems Constitutional: negative: fever, chills, sweats, weakness, malaise, other Respiratory: Pleuritic Pain. negative: Cough, Dry, Shortness of Breath, Hemoptysis, SOB with Excertion, Sputum, Wheezing Cardiovascular: negative: chest pain, palpitations, orthopnea, paroxysmal nocturnal dyspnea, edema, light headedness, other Gastrointestinal: Hematochezia. negative: Nausea, Vomiting, Abdominal Pain, Diarrhea, Constipation, Melena, Other - Medications/Allergies Allergies/Adverse Reactions: Allergies Allergy/AdvReac Type Severity Reaction Status Date / Time No Known Drug Allergies Allergy Unknown Verified 04/29/18 06:42 Medications: Current Medications Acetaminophen (Tylenol) 650 mg PO Q4H PRN PRN Reason: Headache/Fever or Pain Last Admin: 05/01/18 20:27 Dose: 650 mg Hydrocodone Bitart/Acetaminophen ([place] 10/325) 1 tab PO TID PRN PRN Reason: Pain 7-10 Last Admin: 05/01/18 17:43 Dose: 1 tab Allopurinol (Zyloprim) 100 mg PO DAILY [facility] Last Admin: 05/01/18 09:00 Dose: 100 mg Anastrozole (Arimidex) 1 mg PO DAILY [facility] Last Admin: 05/01/18 09:01 Dose: 1 mg Aspirin (Ecotrin) 81 mg PO DAILY [facility] Last Admin: 05/01/18 09:12 Dose: 81 mg Atorvastatin Calcium (Lipitor) 10 mg PO DAILY [facility] Last Admin: 05/01/18 09:01 Dose: 10 mg Carvedilol (Coreg) 3.125 mg PO SuTuThSa@2100 [facility] Last Admin: 04/30/18 20:22 Dose: 3.125 mg Cinacalcet (Sensipar) 30 mg PO DAILY [facility] Last Admin: 05/01/18 09:00 Dose: 30 mg Gabapentin (Neurontin) 300 mg PO BID [facility] Last Admin: 05/01/18 20:27 Dose: 300 mg Vancomycin HCl 1.25 gm/ Sodium (Chloride) 250 mls @ 166.667 mls/hr [facility]PB [facility] Vancomycin HCl 1 gm/ Device 200 mls @ 200 mls/hr IVPB WILLCALL [facility] Last Admin: 05/01/18 15:02 Dose: 200 mls Vancomycin HCl 750 mg/ Sodium (Chloride) 250 mls @ 250 mls/hr IVPB WILLCALL [facility] Vancomycin HCl 500 mg/ Sodium (Chloride) 100 mls @ 100 mls/hr IVPB [facility]CALL [facility] Piperacillin Sod/Tazobactam (Sod 2.25 gm/ Sodium Chloride) 100 mls @ 200 mls/ hr IVPB Q12HR [facility] Last Admin: 05/01/18 20:27 Dose: 100 mls Nitroglycerin (Nitrostat) 0.4 mg SL Q5MIN PRN PRN Reason: Chest Pain Hold Vancomycin For (Level >20) 0 each FS .AT DIALYSIS [facility] Ondansetron HCl (Zofran) 4 mg IVP Q6H PRN PRN Reason: Nausea/Vomiting Pantoprazole Sodium (Protonix) 40 mg PO BID [facility] Last Admin: 05/01/18 20:27 Dose: 40 mg Sertraline HCl (Zoloft) 50 mg PO DAILY [facility] Last Admin: 05/01/18 09:00 Dose: 50 mg Sevelamer Carbonate (Renvela) 1,600 mg PO TID-WM [facility] Last Admin: 05/01/18 17:41 Dose: 1,600 mg Sodium Chloride (Flush - Normal Saline) 10 ml IVF Q12HR [facility] Last Admin: 05/01/18 20:29 Dose: 10 ml Sodium Chloride (Flush - Normal Saline) 10 ml IVF PRN PRN PRN Reason: Saline Flush Tramadol HCl (Ultram) 50 mg PO Q4H PRN PRN Reason: Pain Last Admin: 05/01/18 20:26 Dose: 50 mg Vitamin B Complex/Vit C/Folic Acid (Nephro-Kamala Tablet) 1 tab PO DAILY [facility] Last Admin: 05/01/18 09:01 Dose: 1 tab Warfarin Sodium (Coumadin) 2.5 mg PO 1700 [facility] Last Admin: 05/01/18 19:04 Dose: Not Given
--- NOTE | 2018-05-02 00:33 | CON ---
DATE OF CONSULTATION: 05/01/2018 GI INPATIENT CONSULTATION NOTE REQUESTING PHYSICIAN: Dr. Fischer. REASON FOR CONSULTATION: GI bleeding. HISTORY OF PRESENT ILLNESS: Patti Ansari is a 78-year-old -[place]ir[place] woman, a patient of my GI colleague, Dr. Pieter Heath. She was admitted to the hospital a couple of days ago with right-side d pleuritic chest pain and diagnosed with pneumonia. She has been receiving antibiotics. She is a d ialysis patient and so she went to dialysis earlier today. PERTINENT GI HISTORY: Includes her last colonoscopy in 2013, which showed only sigmoid diverticulosi s and internal hemorrhoids. She was here more recently in 10/2017 actually with melena at that time and underwent an EGD, which showed small gastric and duodenal ulcers, which has subsequently been radha ated. She has had no recurrence of melena. She does take Coumadin chronically for history of pulmon alonso embolus. At any rate early this morning, she had a bowel movement which was characterized as mix ed with a lot of bright red blood. This is a one-time occurrence, she has had no further bowel movem ents today. She is not having any abdominal pain. She says that normally her bowel movements are pr viviana regular and soft. Hemoglobin this morning was 10.1 and on recheck this afternoon is 11.1, which is at her baseline. The patient has no other complaints today except for ongoing right-sided pleuri tic chest pain. REVIEW OF SYSTEMS: Full review of systems including constitutional, head, eyes, ears, nose, throat, GI, , cardiovascular, respiratory, musculoskeletal, neurologic systems is negative except as noted in the HPI. PAST MEDICAL HISTORY: Diabetes type 2, hyperlipidemia, hypertension, breast cancer, status post bila teral mastectomy, end-stage renal disease on hemodialysis, mitral valve regurgitation. PAST SURGICAL HISTORY: Appendectomy, cholecystectomy, hysterectomy, right knee replacement, bilatera l cataracts, depression. ALLERGIES: No known drug allergies. OUTPATIENT MEDICATIONS: Warfarin, allopurinol, atorvastatin, folic acid, gabapentin, Coreg, Renvela, Sensipar, Tian[place]-Kamala, pantoprazole, sertraline. FAMILY HISTORY: Her brother had colon cancer. SOCIAL HISTORY: No alcohol or drug use. She is a former smoker but quit more than 10 years ago. PHYSICAL EXAMINATION: VITAL SIGNS: Temperature 97.6, pulse 94, blood pressure 110/75, 94% oxygen saturation on room air. GENERAL: A 78-year-old -Emir[place] woman lying in bed comfortably in no distress. SKIN: No jaundice, no rash visible or palpable. She has a bandage to the sacral area, which I did n ot remove. EYES: No scleral icterus. Extraocular movements intact. ENT: Mucous membranes moist. No oral lesions. LYMPH: No submandibular, supraclavicular lymphadenopathy. THYROID: Nontender to palpation. HEART: Regular rate and rhythm. LUNGS: Clear to auscultation bilaterally. ABDOMEN: Bowel sounds present, soft and nontender to palpation throughout. EXTREMITIES: No peripheral edema. VESSELS: Radial pulses 2+ bilaterally. NEUROLOGICAL: Cranial nerves II-XII intact bilaterally. No focal deficits. Rectal exam was performed. The patient has large external hemorrhoids as well as some mild prolapse of internal hemorrhoids on digital exam. I did not appreciate any rectal mass lesion. There was no active bleeding, no blood on withdrawal of the glove. On one of the hemorrhoids, there is a small fi brin plug and this appears to represent the source of her recent bleeding. There is no current bleed ing. LABORATORY STUDIES: Hemoglobin 11.1, hematocrit 32.6, WBC 8.2, platelets 295. INR is 2.2. Sodium 1 39, potassium 3.9, BUN 35, creatinine 8.53, glucose 107. ASSESSMENT AND PLAN: 1. Rectal bleeding, single episode. 2. External with internal hemorrhoids. The patient's physical examination in presentation are consi stent with a single episode of hemorrhoidal bleeding. She has not had any significant decline in hem oglobin with this. She is not having any other primary abdominal symptoms to make me think there is any other source of bleeding here. I do not think, there would be any utility to performing any endo scopic investigation at this time. I think, she could take a stool softener twice daily as needed fo r episodes of recurrent bleeding. If this starts to become more bothersome, please let us know. She can follow up with Dr. Heath on an outpatient basis. Thank you for the consultation. Please call back with questions or concerns.
[2018-05-02] MEDS: HYDROcodone/Acetaminophen 10/325 mg Tablet PO PRN ×3 (04:41→20:23)
[2018-05-02 04:52] LABS: Hemoglobin 10.7 g/dL (12.0-16.0); Platelet Count 298 thou/uL (130-400)
[2018-05-02] MEDS: traMADol HCl 50 MG TAB PO PRN (08:13)
[2018-05-02] MEDS: Folic Acid/Vit B Comp W-C PO SCH (08:14)
[2018-05-02] MEDS: Atorvastatin Calcium 10 MG TAB PO SCH (08:14)
[2018-05-02] MEDS: Gabapentin 300 MG CAP PO SCH ×2 (08:14→20:23)
[2018-05-02] MEDS: Cinacalcet HCl 30 MG TAB PO SCH (08:14)
[2018-05-02] MEDS: Sevelamer Carbonate 800 MG TAB PO SCH ×3 (08:14→17:03)
[2018-05-02] MEDS: Anastrozole 1 MG TAB PO SCH (08:14)
[2018-05-02] MEDS: Doxycycline 100 MG CAP PO SCH ×2 (08:15→20:23)
[2018-05-02] MEDS: Allopurinol 100 MG TAB PO SCH (08:15)
[2018-05-02 09:13] LABS: Prothrombin Time 23.1 SEC (12.0-14.7)
--- NOTE | 2018-05-02 09:39 | PQF ---
CLINICAL DOCUMENTATION IMPROVEMENT CLARIFICATION FORM: ICD-10 Updated PLEASE DO AN ADDENDUM TO THE PROGRESS NOTE WITH ANY DOCUMENTATION UPDATES OR ADDITIONS AND CARRY THROUGH TO DC SUMMARY. THANK YOU. DATE: 05/02/18 ATTN: Dr. Stock Please exercise your independent, professional judgment in responding to the clarification form. Clinical indicators are provided on the bottom of this form for your review Please check appropriate box(s): [ ] Empirically treating Gram Negative Pneumonia [ ] Empirically treating Anaerobic Pneumonia [ ] Aspiration Pneumonia [ ] Pneumonia of unknown etiology [ ] Other diagnosis [ ] Unable to determine In addition, please specify: Present on Admission (POA): [ ] Yes [ ] No [ ] Unable to determine For continuity of documentation, please document condition throughout progress notes and discharge summary. Thank You. CLINICAL INDICATORS - SIGNS / SYMPTOMS / LABS H&P 04/29: WE WILL TREAT W/ BROAD-SPECTRUM ANTIBIOTICS DUE TO POSSIBILITY FOR HEALTHCARE-ASSOCIATED PNEUMONIA. PN 8/: PNEUMONIA , UNSPECIFIED ORGANISM. RIGHT CONT EMPIRIC ANTIBIOTICS RISKS: H&P 04/29: HX DM 2, HTN, ESRD ON HEMODIALYSIS. ROS: PT REPORTED COUGH, PLEURITIC CP, SOB. TREATMENT: CPOE 04/29: ZOSYN 2.25 GM IV Q 12 HRS. DC'D 05/01 CPOE 04/29: VANCOMYCIN 1 GM IV . DC'D 05/01 CPOE 05/01: OMNICEF 300MG PO Q PM CPOE 8: DOXYCYCLINE 100 MG PO BID Thank you, Amanda (This form is maintained as a part of the permanent medical record) 2015 [employer]. All Rights Reserved Amanda Gallagher RN, BSN [email or web address] Office: [phone] [facility]
--- NOTE | 2018-05-02 14:18 | PRG ---
DATE OF SERVICE: 05/02/2018 SUBJECTIVE: The patient is seen and examined at bedside. She still complains about chest discomfort , especially when she moves around. OBJECTIVE: VITAL SIGNS: Blood pressure is 125/63, pulse is 95, temperature 99.1, respiratory rate 22, and O2 sa turation is 94% on room air. HEENT: Head: Atraumatic, normocephalic. Eyes are PERRLA. Sclerae nonicteric. Oral mucosa is mois t. NECK: Supple, no lymphadenopathy. CHEST: Breath sounds clear at the left base, few crackles at the right. No wheezing. Tenderness to the right side of the chest on palpation and applied pressure. ABDOMEN: Soft, nontender, obese. EXTREMITIES: No clubbing, cyanosis or edema. NEUROLOGIC: She is alert and oriented x4. There is not any sensory or motor deficits. Cranial nerv es are intact. LABORATORY DATA: Showed hemoglobin of 10.7, hematocrit 31.2, platelet count is 298,000. INR is 2.0, PT 23.1, glucose is ranging from 90-266. IMPRESSION: 1. Right lower lobe pneumonia. The patient was switched to oral antibiotics. She still has some pl euritic chest pain when she moves. She does not have any other signs of toxicity, which would prompt to do further evaluation of her discomfort. 2. Lower gastrointestinal bleeding from hemorrhoids. H&H is monitored. Apparently GI, Dr. Lipscomb agr eed to resume anticoagulation. 3. End-stage renal disease, on dialysis per Nephrology. PLAN: We will continue current regimen with PT and OT and antibiotics. Apparently, she lives alone. She refuses to go home. She feels that she is still weak and she will not be able to function at h [facility] since she does not have much family support.
[2018-05-02] MEDS ORDERED: Sodium Chloride 0.9% 10 ML ONE (16:47)
[2018-05-02] MEDS: Warfarin Sodium 2.5 MG TAB PO SCH (17:04)
[2018-05-02] MEDS: Carvedilol 3.125 MG TAB PO SCH (20:23)
[2018-05-02] MEDS ORDERED: Cefdinir 300 MG CAP PO SCH (21:00)
[2018-05-03] MEDS: traMADol HCl 50 MG TAB PO PRN (00:36)
[2018-05-03 04:50] LABS: Anion Gap 16 mmol/L (10-20); BUN (Urea Nitrogen) 45 mg/dL (9.8-20.1); Calc. Creatinine Clearance 8 mL/min (70-130); Calcium 8.2 mg/dL (7.8-10.44); Carbon Dioxide 31 mmol/L (23-31); Chloride 96 mmol/L (98-107); Estimated GFR-MDRD 5; Glucose 101 mg/dL (83-110); Potassium 4.5 mmol/L (3.5-5.1); Sodium 138 mmol/L (136-145)
[2018-05-03 05:47] LABS: INR-International Normal Ratio 1.9; Prothrombin Time 21.6 SEC (12.0-14.7)
[2018-05-03] MEDS: Cinacalcet HCl 30 MG TAB PO SCH (07:50)
[2018-05-03] MEDS: Atorvastatin Calcium 10 MG TAB PO SCH (07:50)
[2018-05-03] MEDS: Sevelamer Carbonate 800 MG TAB PO SCH ×3 (07:50→17:10)
[2018-05-03] MEDS: Allopurinol 100 MG TAB PO SCH (07:50)
[2018-05-03] MEDS: HYDROcodone/Acetaminophen 10/325 mg Tablet PO PRN (07:51)
[2018-05-03] MEDS: Gabapentin 300 MG CAP PO SCH (07:51)
[2018-05-03] MEDS: Anastrozole 1 MG TAB PO SCH (07:51)
[2018-05-03] MEDS: Doxycycline 100 MG CAP PO SCH (07:51)
[2018-05-03] MEDS: Folic Acid/Vit B Comp W-C PO SCH (07:51)
--- NOTE | 2018-05-03 09:02 | PQF ---
CLINICAL DOCUMENTATION IMPROVEMENT CLARIFICATION FORM: ICD-10 Updated PLEASE DO AN ADDENDUM TO THE PROGRESS NOTE WITH ANY DOCUMENTATION UPDATES OR ADDITIONS AND CARRY THROUGH TO DC SUMMARY. THANK YOU. DATE: 05/02/18; 05/03/18 ATTN: Dr. Stock/ Dr. Fabian Please exercise your independent, professional judgment in responding to the clarification form. Clinical indicators are provided on the bottom of this form for your review Please check appropriate box(s): [ ] Empirically treating Gram Negative Pneumonia [ ] Empirically treating Anaerobic Pneumonia [ ] Aspiration Pneumonia [ ] Pneumonia of unknown etiology [ ] Other diagnosis [ ] Unable to determine In addition, please specify: Present on Admission (POA): [ ] Yes [ ] No [ ] Unable to determine For continuity of documentation, please document condition throughout progress notes and discharge summary. Thank You. CLINICAL INDICATORS - SIGNS / SYMPTOMS / LABS H&P 04/29: WE WILL TREAT WITH BROAD-SPECTRUM ANTIBIOTICS DUE TO POSSIBILITY FOR HEALTHCARE-ASSOCIATED PNEUMONIA. PN 04/30: PNEUMONIA , UNSPECIFIED ORGANISM. RIGHT CONT EMPIRIC ANTIBIOTICS RISKS: H&P 04/29: HX DM 2, HTN, ESRD ON HEMODIALYSIS. ROS: PT REPORTED COUGH, PLEURITIC CP, SOB. TREATMENT: CPOE 04/29: ZOSYN 2.25 GM IV Q 12 HRS. DC'D 05/01 CPOE 04/29: VANCOMYCIN 1 GM IV . DC'D 05/01 CPOE 05/01: OMNICEF 300MG PO Q PM CPOE 8: DOXYCYCLINE 100 MG PO BID Thank you, Amanda (This form is maintained as a part of the permanent medical record) 2014 [employer]. All Rights Reserved Amanda Gallagher RN, BSN [email or web address] Office: [phone] [facility]
[2018-05-03] MEDS ORDERED: traMADol HCl 50 MG TAB PO PRN (09:32)
--- NOTE | 2018-05-03 10:15 | PRG ---
DATE OF SERVICE: 05/03/2018 RENAL MEDICINE SUBJECTIVE: Ms. Ansari is a 78-year-old black female followed by the Renal Service for her maintenanc e hemodialysis. The patient is complaining of some right-sided chest pain. I have decided to give h er an extra dose of tramadol 50 mg x1 dose. I feel that this is most likely musculoskeletal in etiology. No complaints of chest pain, shortness of breath. I have scheduled her for regular dialysis this aft ernoon. OBJECTIVE: VITAL SIGNS: Blood pressure is noted at 110/70-90/70, heart rate 70. GENERAL: Awake, alert, obese, comfortable, not in distress. SKIN: Adequate turgor. HEENT: She has slightly pale conjunctivae, anicteric sclerae. NECK: No neck mass, no carotid bruits, no JVD. CHEST: No deformities. LUNGS: Clear breath sounds, no wheezing, no crackles. HEART: Normal sinus rhythm. No murmur, no gallops, no rubs. ABDOMEN: Globular, soft, nontender. No masses. EXTREMITIES: No edema, no deformities. MEDICATIONS: Medications of 05/03/2018 was reviewed. LABORATORY DATA: Laboratories of 05/02/2018, hemoglobin 10.7 On 05/03/2018, BUN 45, creatinine 8.68, potassium 4.5, sodium 138 and calcium 9.2. ASSESSMENT AND PLAN: 1. End-stage renal disease, stable. Continuing Tuesday, Tuesday and Tuesday hemodialysis. Fluid re moval as tolerated by the patient. 2. Pneumonia, currently on p.o. antibiotics. 3. Hyperphosphatemia. Currently, patient on maintenance Renvela. I agree with current management.
--- NOTE | 2018-05-03 16:30 | PDOC.PN ---
- Subjective Encounter Start Date: 05/03/18 Encounter Start Time: 16:28 Ms. Ansari was seen today in follow-up of pneumonia. She is complaining of some cramping in her legs, and some soreness in the left side of her chest. - Objective Resuscitation Status: Resuscitation Status FULL:Full Resuscitation MAR Reviewed: Yes Vital Signs & Weight: Vital Signs (12 hours) Temp Pulse Resp BP Pulse Ox 05/03/18 08:00 98.9 F 89 20 96 05/03/18 07:24 98.9 F 89 20 98/55 L 93 L Weight Weight 225 lb 4.8 oz I&O: 05/02/18 05/03/18 05/04/18 06:59 06:59 06:59 Intake Total 900 1000 240 Output Total 3650 Balance -2750 1000 240 Result Diagrams: 05/02/18 04:23 05/03/18 03:28 Additional Labs: Accuchecks 05/03/18 05/02/18 05/02/18 05:22 20:47 17:17 POC Glucose 91 126 H 137 H Phys Exam - Physical Examination HEENT: PERRLA Respiratory: no wheezing, no rales, no rhonchi, clear to auscultation bilateral Cardiovascular: RRR, no significant murmur, no rub Gastrointestinal: soft, non-tender, positive bowel sounds Musculoskeletal: no edema Dx/Plan (1) Community acquired bacterial pneumonia Code(s): J15.9 - UNSPECIFIED BACTERIAL PNEUMONIA Status: Acute (2) Diastolic dysfunction Code(s): I51.9 - HEART DISEASE, UNSPECIFIED Status: Chronic (3) ESRD on dialysis Code(s): N18.6 - END STAGE RENAL DISEASE; Z99.2 - DEPENDENCE ON RENAL DIALYSIS Status: Chronic Comment: HD per Renal service (4) Hypertension Code(s): I10 - ESSENTIAL (PRIMARY) HYPERTENSION Status: Chronic Qualifiers: Comment: Stable, continue current antihypertensive regimen (5) 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 fib) - Plan * Pneumonia- improving * She is stable for discharge home on oral antibiotics * HTN- blood pressure is stable * DM- blood glucose is stable.
[2018-05-03] MEDS: Warfarin Sodium 2.5 MG TAB PO SCH (16:36)
[2018-05-03 17:27] VITALS: BP 136/86; TEMP 98.7
--- NOTE | 2018-05-04 01:41 | DIS ---
DATE OF ADMISSION: 04/29/2018 DATE OF DISCHARGE: 05/03/2018 PRIMARY CARE PHYSICIAN: Neela Hugo MD DISCHARGE DISPOSITION: Home. PRIMARY DISCHARGE DIAGNOSES: 1. Community-acquired pneumonia. 2. Diabetes mellitus type 2. 3. Hyperlipidemia. 4. Hypertension. 5. End-stage renal disease, on hemodialysis. 6. Aortic valve disorder and mitral valve regurgitation. DISCHARGE MEDICATIONS: Omnicef 300 mg daily for 5 days, Protonix 40 mg twice daily, warfarin 2 mg at bedtime, Renvela 1600 mg 3 times a day, Zoloft 50 mg daily, nitroglycerin 0.4 mg as directed, Humuli n NPH sliding scale, Neurontin 300 mg t.i.d., folic acid plus vitamin B and C complex 0.8 mg daily, S ensipar 30 mg daily, carvedilol 3.125 mg daily, Lipitor 10 mg at bedtime, Arimidex 1 mg daily, allopu rinol 100 mg daily. CODE STATUS: FULL CODE. ALLERGIES: No known drug allergies. PROCEDURES DONE DURING ADMISSION: She had a lower extremity venous Doppler, which showed no evidence of DVT. The patient also had a pulmonary perfusion scan showing low probability for pulmonary embol ism. HOSPITAL COURSE: Ms. Ansari is a pleasant 78-year-old female that presented to the emergency room wit h complaints of chest pain, worse with a deep cough. She has a history of pulmonary embolism, so ini tia concern was for PE. She is already on Coumadin and had been therapeutic with her INR. PE was r uled out with a negative or low-probability V/Q scan. She was found to have evidence for possible pn eumonia and was treated with IV antibiotics. She had slow improvement over the course of the next fe w days and eventually transitioned to oral antibiotics. Oxygen saturations were 95% on room air. Vi jazmin signs were stable. She was ambulatory. She did complain of some weakness and I offered to refer her to a detention or rehabilitation. She said she had been through that experience before an d was not interested. She was seen by her physical therapist who did clear her for discharge home [facility]. Therefore, she will be discharged home with Home Health today on 05/03/2018 with [facility] outpatient followup.
== END 2018-05-03 18:28 | disposition home or self-care (01) | DRG 193 ==
LOC: ERS 22:43 → 2NO 04-29 03:25 → T4-A 04-30 17:08
PROVIDERS: ADMIT Hospitalist; ATTEND Hospitalist
PROC: 5A1D70Z Performance of Urinary Filtration, Intermittent, Less than 6 Hours Per Day (ICD-10-PCS; principal; 2018-04-29)
DX: J18.9 Pneumonia, unspecified organism (principal); N18.6 End stage renal disease; I12.0 Hypertensive chronic kidney disease with stage 5 chronic kidney disease or end stage renal disease; E11.22 Type 2 diabetes mellitus with diabetic chronic kidney disease; Z99.2 Dependence on renal dialysis; E78.5 Hyperlipidemia, unspecified; I08.0 Rheumatic disorders of both mitral and aortic valves; E83.39 Other disorders of phosphorus metabolism
CPT/HCPCS: 36415; 36416; 71045; 78582; 80048; 80053; 80202; 82274; 82553; 83690; 83735; 83880; 84484; 85014; 85018; 85025; 85049; 85610; 85730; 87040; 87340; 93005; 96365; 96368; A4216; A9540; A9558; G8978-GP-CI; G8979-GP-CI; G8980-GP-CI; G8987-GO-CI; G8988-GO-CI; G8989-GO-CI; J2543; J3370; J7050

== ENCOUNTER 2018-07-25 06:20 | Day surgery (SDC) | payer MEDICARE, MEDICAID ==
[2018-07-24 16:26] VITALS: BMI 40.6
--- NOTE | 2018-07-25 13:39 | OP ---
DATE OF PROCEDURE: 07/25/2018 SURGEON: Dr. Pieter Heath PROCEDURE: Esophagogastroduodenoscopy and colonoscopy with snare polypectomy and control of hemorrha ge with cautery of AVMs and endoscopic mucosal resection. PREOPERATIVE DIAGNOSIS: Gastrointestinal bleed. OPERATIVE PROCEDURE IN DETAIL: Informed consent was obtained from the patient. The patient was geraldine rosendo with total intravenous anesthesia. The bite block was placed and the endoscope was advanced easi ly to the second portion of the duodenum and retroflexion was performed in the stomach. The esophagu s was normal. The GE junction was normal. The stomach was normal including retroflexed views. The pylorus and first and second portions of the duodenum were normal. The patient was turned around. Rectal exam was performed and was normal. The preparation quality wa s good. Colonoscope was advanced to the cecum where the ileocecal valve and appendiceal orifice were clearly identified. There was a flat 1.5 cm polyp in the transverse colon which was raised with adelina ine and removed by snare cautery polypectomy in two pieces. A 5 mm transverse polyp was removed by c old snare polypectomy. Two 4 mm polyps were removed from the descending colon by cold snare polypect naveen. There were two vascular ectasias in the descending and sigmoid colon cauterized with argon plas ma coagulation. Good hemostasis was confirmed. Retroflexed views in the rectum were unremarkable. There was sigmoid diverticulosis present. IMPRESSION: 1. Normal esophagogastroduodenoscopy. 2. A 1.5 cm flat transverse polyp removed with saline lift and snare cautery polypectomy in two [facility] es. The polyp was completely removed with clean edges. 3. A 5 mm transverse polyp was removed by cold snare. 4. Two 4 mm descending polyps were removed by cold snare. 5. Two 1 cm vascular ectasias were cauterized in the descending and sigmoid colon with argon plasma coagulation. 6. Sigmoid diverticulosis. RECOMMENDATIONS: 1. Await histopathology. 2. Repeat colonoscopy in 1 year if clinically appropriate at that time. 3. Restart warfarin in 3 days.
[2018-07-25] MEDS ORDERED: Lidocaine 1% PF 5 ML VIAL ONE (17:36)
[2018-07-25] MEDS ORDERED: PHENYLEPHRINE-NS 100 MCG/ML 10 ML SYRINGE ONE (17:36)
[2018-07-25] MEDS ORDERED: PROPOFOL 200 MG/20 ML VIAL ONE (17:36)
== END 2018-07-25 12:10 | disposition home or self-care (01) ==
LOC: SDC 06:20
PROVIDERS: ATTEND Internal Medicine Gastroenterology
PROC: 0DJ08ZZ Inspection of Upper Intestinal Tract, Via Natural or Artificial Opening Endoscopic (ICD-10-PCS; principal; 2018-07-25)
PROC: 0DBM8ZX Excision of Descending Colon, Via Natural or Artificial Opening Endoscopic, Diagnostic (ICD-10-PCS; 2018-07-25)
PROC: 0DBL8ZX Excision of Transverse Colon, Via Natural or Artificial Opening Endoscopic, Diagnostic (ICD-10-PCS; 2018-07-25)
PROC: 0D5M8ZZ Destruction of Descending Colon, Via Natural or Artificial Opening Endoscopic (ICD-10-PCS; 2018-07-25)
PROC: 0D5N8ZZ Destruction of Sigmoid Colon, Via Natural or Artificial Opening Endoscopic (ICD-10-PCS; 2018-07-25)
PROC: 3E0H8GC Introduction of Other Therapeutic Substance into Lower GI, Via Natural or Artificial Opening Endoscopic (ICD-10-PCS; 2018-07-25)
DX: K55.21 Angiodysplasia of colon with hemorrhage (principal); K57.31 Diverticulosis of large intestine without perforation or abscess with bleeding; D12.3 Benign neoplasm of transverse colon; D12.4 Benign neoplasm of descending colon; I12.0 Hypertensive chronic kidney disease with stage 5 chronic kidney disease or end stage renal disease; E11.22 Type 2 diabetes mellitus with diabetic chronic kidney disease; N18.6 End stage renal disease; D63.1 Anemia in chronic kidney disease; E78.5 Hyperlipidemia, unspecified; Z85.3 Personal history of malignant neoplasm of breast; Z79.01 Long term (current) use of anticoagulants; Z79.4 Long term (current) use of insulin; Z79.811 Long term (current) use of aromatase inhibitors; Z79.899 Other long term (current) drug therapy; Z99.2 Dependence on renal dialysis
CPT/HCPCS: 36416; 88305; J2001; J2704

== ENCOUNTER 2018-08-06 01:08 | Observation (INO) | payer MEDICARE, OTHER ==
[2018-08-06 01:42] LABS: #Eosinphils 0.1 thou/uL (0.0-0.7); #Lymphocytes 1.2 thou/uL (1.20-3.40); #Monocytes 0.8 thou/uL (0.11-0.59); #Neutrophils 6.6 thou/uL (1.40-6.50); %Basophils 0.4 % (0.0-1.0); %Eosinophils 1.2 % (0.0-10.0); %Lymphocytes 13.8 % (21.0-51.0); %Monocytes 9.4 % (0.0-10.0); %Neutrophils 75.2 % (42.0-75.0); Hemoglobin 11.5 g/dL (12.0-16.0); Mean Corpuscular HGB CONC 31.8 g/dL (32.0-36.0); Mean Corpuscular Hemoglobin 30.3 pg (27.0-31.0); Mean Corpuscular Volume 95.1 fL (78.0-98.0); Mean Platelet Volume 7.9 fL (7.4-10.4); Platelet Count 352 thou/uL (130-400); RBC Distribution Width 14.7 % (11.5-14.5); Red Blood Cell (RBC) Count 3.79 mill/uL (4.20-5.40); White Blood Cell (WBC) Count 8.8 thou/uL (4.8-10.8)
[2018-08-06] MEDS ORDERED: Nitroglycerin 0.4 MG TAB (25 Tab Bottle) ONE (01:50)
[2018-08-06 02:04] LABS: ALT (SGPT) 9 U/L (8-55); AST (SGOT) 17 U/L (5-34); Alkaline Phosphatase 131 U/L (40-150); Anion Gap 18 mmol/L (10-20); BUN (Urea Nitrogen) 45 mg/dL (9.8-20.1); Bilirubin, Total 0.4 mg/dL (0.2-1.2); CK (CPK) 70 U/L (29-168); Calc. Creatinine Clearance 0 mL/min (70-130); Carbon Dioxide 30 mmol/L (23-31); Chloride 99 mmol/L (98-107); Estimated GFR-MDRD 5; Globulin 3.5 g/dL (2.4-3.5); Glucose 135 mg/dL (83-110); Lipase 35 U/L (8-78); Protein, Total 7.5 g/dL (6.0-8.3); Sodium 143 mmol/L (136-145)
[2018-08-06 02:06] LABS: CKMB 0.5 ng/mL (0-6.6); Troponin I 0.012 ng/mL (< 0.028)
[2018-08-06] MEDS ORDERED: Morphine 4 MG/ML VIAL ONE (03:30)
[2018-08-06 04:37] VITALS: BMI 41.5
[2018-08-06] MEDS ORDERED: Morphine 2 MG/ML SYRINGE SLOW IVP PRN (05:19)
[2018-08-06 07:53] LABS: Troponin I 0.014 ng/mL (< 0.028)
[2018-08-06] MEDS ORDERED: Acetaminophen 325 MG TAB PO PRN (08:06)
[2018-08-06 08:54] LABS: INR-International Normal Ratio 2.4; Prothrombin Time 25.8 SEC (12.0-14.7)
[2018-08-06 08:55] LABS: PTT 62.9 SEC (22.9-36.1)
[2018-08-06] MEDS ORDERED: Famotidine 20 MG TAB PO SCH (09:00)
--- NOTE | 2018-08-06 09:12 | RAD ---
CHEST 2 VIEWS: Date: 08/06/18 HISTORY: Chest pain. COMPARISON: Radiograph dated 07/13/18. FINDINGS: There is a large layering right pleural effusion, similar. Small left effusion. Heart size is enlarge d. Mild pulmonary edema. IMPRESSION: Similar examination to 07/13/18 exam. POS: [facility]
[2018-08-06] MEDS ORDERED: Nitroglycerin 0.4 MG TAB (25 Tab Bottle) SL PRN (09:32)
--- NOTE | 2018-08-06 10:02 | CON ---
DATE OF CONSULTATION: 08/06/2018 SERVICE: Renal Medicine. HISTORY OF PRESENT ILLNESS: Ms. Ansari is a 78-year-old black female with end-stage renal disease who was admitted for chest pain. According to the patient, the chest pain usually starts at the left up per quadrant with radiation to the midline chest. No associated shortness of breath with this. On e xamination, she was very tender on palpation of her left-sided chest. She is being ruled out for myocardial infarction. In addition, we were consulted for maintenance hem odialysis. REVIEW OF SYSTEMS: No shortness of breath. Positive for chest pain - positive for deep palpation. No shortness of breath, no fever or chills, no gross hematuria, no dysuria, no urinary frequency, no abdominal pain, no headache. Appetite and energy level is fair. No sore throat, no joint pains, no new skin rash. No dysuria, no diarrhea. Appetite and energy level is decreased. HOME MEDICATIONS: Includes the following, allopurinol 100 mg once a day, Atorvastatin 10 mg at bedti me, Coreg 3.125 mg on Tuesday, , Tuesday, and Tuesday?, sublingual nitroglycerin, gabapentin 300 mg t.i.d., Protonix 40 mg tab once a day, sertraline 50 mg at bedtime, anastrozole 1 mg daily, Co umadin as directed, Renvela 800 mg t.i.d. with meals. PAST MEDICAL HISTORY: 1. End-stage renal disease, currently on maintenance hemodialysis. 2. Patient has a history of hyperlipidemia. 3. Status post PE/DVT. 4. History of morbid obesity. 5. Status post congestive heart failure. 6. Hypertension. 7. Chronic pain. 8. Type 2 diabetes mellitus. 9. Breast cancer in remission. 10. Depression. PAST SURGICAL HISTORY: 1. Status post laparoscopic cholecystectomy. 2. Status post colonoscopy. 3. Status post AV fistula placement. 4. Status post breast biopsy. 5. Status post cuffed hemodialysis catheter placement. 6. Status post right knee replacement. 7. Status post breast mastectomy for breast cancer. 8. Status post upper and lower GI endoscopy. SOCIAL HISTORY: Patient lives in [place]. She lives alone, 5 children. She has a caregiver. E ducation: 11th grade. No history of smoking, no alcohol, no IV drug abuse. Sedentary lifestyle. S tatus post blood transfusion. ALLERGIES: None. TRAUMA: None. IMMUNIZATIONS: Up to date. HOSPITALIZATIONS: Please see past medical history. FAMILY HISTORY: Positive family history of end-stage renal disease. One sister on dialysis. PHYSICAL EXAMINATION: VITAL SIGNS: Blood pressure 131/60, heart rate 75, respiratory rate 20, temperature 98.3, pulse ox 9 8%. GENERAL: Noted to be awake, supine, comfortable, morbidly obese. SKIN: Adequate turgor. HEENT: She has pinkish conjunctivae, anicteric sclerae. NECK: No neck mass, no carotid bruits, no JVD. CHEST: No deformities. LUNGS: Clear breath sounds, no wheezing, no crackles. HEART: Normal sinus rhythm. No murmur, no gallops, no rubs. CHEST: Positive for chest pain. Positive for chest tenderness on deep palpation of the left side. ABDOMEN: Globular, soft, nontender, no masses. EXTREMITIES: No edema, no deformities. NEUROLOGIC: Awake, oriented to 3 spheres. Moving all extremities. No tremors, no asterixis, no heath ene. LABORATORY DATA: Of 08/06/2018, white count 8.8, hemoglobin 11.5, hematocrit 36. Sodium 143, potass ium 4, chloride 99, carbon dioxide 30, BUN 45, creatinine 8.85, glucose 135, calcium 10, AST 17, ALT 9. Troponin I 0.014. IMAGING: On 08/06/2018, chest x-ray showed there is a large layering right pleural effusion, small l eft pleural effusion, increased lung markings. ASSESSMENT AND PLAN: 1. Chest pain - this is most likely noncardiac in etiology. She does have pain on deep palpation of her left-sided chest. Management is supportive. Please note, troponin I is within normal. 2. End-stage renal disease, stable. We will continue current Tuesday, Tuesday, Tuesday hemodialysis regimen. There is no indication for any emergent hemodialysis with the patient today. Her last Kt/ V review suggests she is adequately dialyzed with the current dialysis regimen. Overall, agree with current management.
[2018-08-06] MEDS ORDERED: Allopurinol 100 MG TAB PO SCH (10:30)
[2018-08-06 10:43] LABS: HBSAg Index 0.15 S/CO (0-0.99); Hep B Surf Ag Non-Reactive S/CO (NonReactive)
[2018-08-06] MEDS ORDERED: Anastrozole 1 MG TAB PO SCH (11:00)
[2018-08-06] MEDS ORDERED: Folic Acid 1 MG TAB PO SCH (11:00)
[2018-08-06] MEDS ORDERED: Docusate 100 MG CAP PO SCH (11:00)
[2018-08-06] MEDS ORDERED: Carvedilol 3.125 MG TAB PO SCH (11:00)
[2018-08-06] MEDS ORDERED: Gabapentin 300 MG CAP PO SCH ×2 (11:00→21:00)
[2018-08-06 11:43] LABS: HBSAB Concentration 37.97 mIU/mL; Hep B Surf AB Reactive (NonReactive)
[2018-08-06] MEDS: Sevelamer Carbonate 800 MG TAB PO SCH ×2 (12:23→17:47)
--- NOTE | 2018-08-06 12:32 | CT ---
CT ABDOMEN AND PELVIS WITHOUT IV CONTRAST: Date: 08/06/18 PROVIDED CLINICAL HISTORY: Left-sided abdominal pain. FINDINGS: Comparison made with the study dated 10/26/13. There is a small pleural based mass involving the anterior aspect of the right hemithorax on the cran ial most included image. This measures approximately 1.2 cm. There is a large right pleural effusion partially visualized. Foci of increased density possibly reflecting calcifications are seen within th e associated passive atelectatic lung parenchyma. There is a small left pleural effusion. There is an apparent lytic lesion at the posterior aspect of the right 11th rib. There is an adjacent remote, ununited fracture, separate from this. There is prominence of the common duct and central intrahepatic biliary system, appearing similar to the prior examination and presumably on the basis of patient age and post cholecystectomy status. Hyperdense 1.4 cm right renal cyst. Slightly complex appearing left renal cyst with possible thickene d internal septation measuring at least 3.1 cm. The solid abdominal organs are suboptimally evaluated in the absence of IV contrast material but demonstrate an otherwise unremarkable unenhanced CT appea [place]. There is no bowel dilatation, inflammatory fat stranding, free fluid, or free air apparent. Sigmoid c olonic diverticulosis is demonstrated without CT evidence for diverticulitis. Uterus is not visualize d and presumed surgically absent. Vascular calcifications are noted involving the aorta and its branches. Degenerative changes are seen involving the spine. No additional bone lesions are seen. IMPRESSION: 1. Small, pleural based mass involving the anterior aspect of the right hemithorax. Dedicated chest CT, preferably with IV contrast, recommended. 2. Bilateral pleural effusions, right greater than left. 3. Lytic lesion involving the right posterior 11th rib is suspected. Correlation with whole body bon e scan is recommended. 4. Bilateral renal cystic structures, incompletely characterized in the absence of IV contrast. Bladimir elation with renal ultrasound or follow-up postcontrast imaging is recommended. 5. Prominence of the biliary system may be on the basis of patient age and post cholecystectomy stat us. Correlation with laboratory values to exclude biliary obstructive change recommended. POS: [facility]
--- NOTE | 2018-08-06 14:20 | HP ---
SHORT STAY SUMMARY ADM: 08/06/2018 DC: 08/06/2018 PRIMARY CARE PHYSICIAN: Dr. Hugo. CONSULTANTS: Dr Mcqueen and Dr Collins CHIEF COMPLAINT: Chest pain. HISTORY OF PRESENT ILLNESS/HOSPITAL COURSE: Patient reports per the ER early this morning for chest pain in her left upper chest which radiated to her left shoulder. She reports that she has had similar pain on and off for several days. Denies condition is relieved by anything. Reports condition is exacerbated by movement. It is also exacerbated by palpation of chest. Patient has history of type 2 diabetes, hyperlipidemia, hypercholesterol, hypertension, breast cancer, gout, end-stage renal disease requiring dialysis Tuesday, Tuesday and Tuesday, chronic heart failure. She denied any shortness of breath with chest pain because of her significant history with heart and renal disease. The patient was admitted to the observation unit for further management. Cardiology consult was ordered The patient had a cardiac catheterization on 03/16/2018 with no intervention. She is on Coumadin therapy. She sees Dr. Mcqueen for dialysis management. Dr. Collins and Dr. Mcqueen were consulted and came to see the patient. Dr. Collins thought chest pain was most likely non-cardiac. A CT scan of the abdomen with oral contrast was ordered to rule out abdominal cause for the pain. Findings with small pleural mass in right anterior hemithorax, a dedicated CT chest was recommended. Bilateral pleural effusions, right larger than left. Right lytic lesion to posterior right 11th rib is suspected. Correlation with whole body scan was recommended. Bilateral cystic lesions are noted, follow up renal ultrasound is recommended. Patient's pain was controlled after one dose of Morphine 2mg this morning. Vital signs have remained within normal limits, lab values are stable. Case discussed with Dr. Card, will discharge patient home with close outpatient follow up for findings above. Patient will need to have dialysis tomorrow as scheduled. Tramadol 25mg tab were prescribed for pain control. All home medications will be restarted. REVIEW OF SYSTEMS: Constitutional: Denies any fever or chills. Denies any weakness. Respiratory: Denies cough, pleuritic chest pain. Denies shortness of breath. Cardiovascular: Reports left-sided chest pain that radiates to her shoulder. Denies any palpitations. Gastrointestinal: Mild left upper quadrant pain that radiates upwards. Denies any nausea, vomiting, diarrhea. Central nervous system: Denies any dizziness, headache or feeling lightheaded. : Female, denies any dysuria or hematuria. Extremities: Denies any arthralgias, myalgias, leg swelling. PAST MEDICAL HISTORY: Diabetes type 2, hyperlipidemia, hypertension, breast cancer, end-stage renal disease on hemodialysis, aortic valve disorder, mitral valve regurgitation. PAST SURGICAL HISTORY: History of appendectomy, cholecystectomy, hysterectomy, mastectomy, right knee replacement, bilateral cataracts. The patient also had an EGD and a colonoscopy on 07/25/2018 which showed a normal EGD, Colonscopy with multiple polyps removed. She also had sigmoid diverticulosis. SOCIAL HISTORY: Denies any alcohol or illicit drug use. Denies current tobacco , although reports she has quit smoking 10 years ago. ALLERGIES: No known drug allergies. REPORTED MEDICATIONS: Include allopurinol, Arimidex, Lipitor, Coreg, docusate, folic acid, multivitamin, gabapentin, nitro, sertraline, Renvela, Coumadin, Protonix. PHYSICAL EXAMINATION: VITAL SIGNS: Temperature 98.1, pulse 77, respirations 20. Patient's pulse ox is 98% on room air, blood pressure 136/79. CONSTITUTIONAL: Patient is alert and oriented to person, place and time. HEENT: Head is atraumatic, normocephalic. Eyes: Pupils are equally round and reactive to light. Extraocular muscles are intact. ENT: Pharynx is normal. Uvula is midline. Tonsils are normal. NECK: Normal range of motion. Trachea is midline. No JVD is noted. RESPIRATORY/CHEST: No respiratory distress. Breath sounds are clear. No wheezing, no rales. There is mild tenderness to the left anterior chest. CARDIOVASCULAR: Heart, rate is regular, S1, S2. Heart sounds are normal. ABDOMEN: Female, abdominal exam with mild tenderness to left upper quadrant, left upper chest. Patient somewhat is guarding. Patient reports it is worse with movement. Otherwise, abdomen is nontender in the other three quadrants. Bowel sounds are heard x4. BACK: Normal inspection, normal range of motion. EXTREMITIES: Upper extremities, patient has a fistula in the right upper arm. Normal range of motion. Radial pulses are normal. Lower extremities, normal range of motion. No pedal edema is noted. No calf tenderness. NEUROLOGIC: Patient is oriented to person, place or time. Gait was not assessed. SKIN: Normal, dry, and normal in color. No rashes noted. PSYCHIATRIC: Normal affect. Recent memory is normal. PERTINENT LABORATORY AND X-RAYS: EKG in the emergency room showed normal sinus rhythm, rate of [address] segments are normal. T waves were normal. Some nonspecific ST abnormality. White blood cell count 8.8, hemoglobin 11.5, hematocrit 36, platelet count is 352. PT 25.8, INR is 2.4, aPTT is 62.9, sodium 143, potassium 4.0, gap is 18, BUN 45, creatinine is 8.85, GFR is 5, glucose is 135, troponin I's x3 are negative below 0.15. Lipase is 35. Serology, hepatitis B antigen is nonreactive, hepatitis B antibody is reactive. Chest x-ray, large layering right pleural effusion, small left effusion. Heart size is enlarged. Mild pulmonary edema, similar examination from 07/13/2018. DISCHARGE DIAGNOSES: 1. Chest pain, atypical. 2. End-stage renal disease, stable. continue dialysis Tuesday, Tuesday, and Tuesday 3. Left upper quadrant abdominal pain on palpation. CT findings as above 4. Hyperlipidemia. We will continue statins. 5. Diastolic dysfunction 6. Hypertension. 7. Anti-coagulation with Coumadin Disposition: Stable DISPOSITION: Will DC home, patient will continue to have HH. Follow up with Dr. Kerr within one week. Follow up with Soha Mcqueen and Dennis in the next 2-3 weeks. [facility]
[2018-08-06 15:46] VITALS: BP 118/65; TEMP 98
--- NOTE | 2018-08-06 15:51 | CON ---
DATE OF CONSULTATION: 08/06/2018 HISTORY OF PRESENT ILLNESS: The patient is a very pleasant 78-year-old woman with a history of conge stive heart failure who presented with abdominal discomfort that radiated into her chest. The patien t has previously undergone a cardiac evaluation in 2017. She was found to have normal left ventricul ar systolic function without any evidence of ischemia. She represented most recently with recurrent chest discomfort in February of this year. She underwent a repeat catheterization, which revealed her to have normal coronary arteries. The patient also has a history of diastolic congestive heart failure secondary to diastolic dysfunction. The patient for the past several months has noted having abdomi nal discomfort that radiates into her chest. This has been progressively worse. This has become ext remely painful. She reports having extreme discomfort with minimal movement. The patient denies hav ing any PND or orthopnea. PAST MEDICAL HISTORY: 1. Diabetes mellitus. 2. Hypertension. 3. History of pulmonary embolus. 4. Breast carcinoma. 5. Hypertension. 6. Anemia. 7. End-stage renal disease. PAST SURGICAL HISTORY: She has had bilateral mastectomies and a fistula surgery. SOCIAL HISTORY: Nonsmoker. FAMILY HISTORY: No strong family history of heart disease. MEDICATIONS: She takes Lipitor 10 at bedtime, sertraline 50 daily, Folvite 1 mg daily, Protonix 40 b .i.d., Coreg 3.125 b.i.d., allopurinol 100 daily, warfarin 2 mg at bedtime, gabapentin 300 b.i.d., an d Arimidex 1 mg daily. REVIEW OF SYSTEMS: Ten-point system otherwise unremarkable except for abdominal discomfort. PHYSICAL EXAMINATION: GENERAL: This is an obese woman, in mild distress. VITAL SIGNS: Blood pressure 131/60. NECK: No jugular venous distention. LUNGS: Clear to auscultation. HEART: Regular rate and rhythm. Normal S1, S2. ABDOMEN: Distended and tender in the left upper quadrant. SKIN: Warm and dry. NEUROLOGIC: Nonfocal. LABORATORY DATA: Sodium 143, potassium 4.0, chloride 99, bicarbonate 30, BUN 45, creatinine is 8.85. Her white blood cell count 8.8, hemoglobin 11.5, hematocrit 36.0 and her platelets are 352,000. IMPRESSION: 1. Abdominal pain. 2. History of normal coronary arteries. 3. End-stage renal disease. 4. Hypertension. 5. History of pulmonary embolus. 6. Morbid obesity. 7. Diabetes mellitus. 8. Dyslipidemia. This patient presents with abdominal discomfort. She had a recent cardiac catheterization that revea led normal coronary arteries. The patient shows no signs of congestive heart failure. The patient i s undergoing a CT scan to evaluate her abdominal discomfort. I will follow this patient with you thr ough her hospitalization.
[2018-08-06] MEDS ORDERED: Atorvastatin Calcium 10 MG TAB PO SCH (21:00)
[2018-08-07] MEDS ORDERED: Folic Acid 1 MG TAB PO SCH (09:00)
[2018-08-07] MEDS ORDERED: Docusate 100 MG CAP PO SCH (09:00)
[2018-08-07] MEDS ORDERED: Folic Acid/Vit B Comp W-C PO SCH (09:00)
[2018-08-07] MEDS ORDERED: Anastrozole 1 MG TAB PO SCH (09:00)
[2018-08-07] MEDS ORDERED: Allopurinol 100 MG TAB PO SCH (09:00)
[2018-08-08] MEDS ORDERED: Carvedilol 3.125 MG TAB PO SCH (09:00)
== END 2018-08-06 18:48 | disposition home or self-care (01) ==
LOC: ERS 01:08 → 2SW 04:17
PROVIDERS: ADMIT Internal Medicine; ATTEND Internal Medicine
DX: R07.89 Other chest pain (principal); I12.0 Hypertensive chronic kidney disease with stage 5 chronic kidney disease or end stage renal disease; E11.22 Type 2 diabetes mellitus with diabetic chronic kidney disease; N18.6 End stage renal disease; I50.9 Heart failure, unspecified; M10.9 Gout, unspecified; E78.00 Pure hypercholesterolemia, unspecified; I34.0 Nonrheumatic mitral (valve) insufficiency; D63.1 Anemia in chronic kidney disease; E78.5 Hyperlipidemia, unspecified; Z85.3 Personal history of malignant neoplasm of breast; Z86.711 Personal history of pulmonary embolism; Z79.01 Long term (current) use of anticoagulants; Z79.811 Long term (current) use of aromatase inhibitors; Z79.899 Other long term (current) drug therapy; Z99.2 Dependence on renal dialysis
CPT/HCPCS: 71046; 74176; 80053; 82550; 82553; 83690; 84484 ×2; 85025; 85610; 85730; 86706; 87340; 93005; 94760; 96374; 96376; 99285; G0378 ×2; 36415; J2270

== ENCOUNTER 2018-09-07 09:33 | Outpatient (CLI) | payer MEDICARE, MEDICAID ==
--- NOTE | 2018-09-07 11:49 | CT ---
CT THORAX NONCONTRAST: DATE: 09/07/18 HISTORY: 78-year-old female with abnormal finding on prior CT. History of bilateral breast cancer, status post bilateral mastectomy. COMPARISON: CT abdomen and pelvis of 08/06/18. No prior chest CTs are available for comparison. FINDINGS: There are two, moderately large, spiculated soft tissue density left breast masses, at the site of ma stectomy. The one that is located more superiorly and laterally is approximately 3.5 x 3.5 x 3.5 cm, with irregular margins. The other, located more anteriorly and inferiorly, measures approximately 2.5 x 2 x 2.5 cm. Post mastectomy changes and large scarring demonstrated in the contralateral right breast. Moderate size osteolytic lesion at right side of sternal manubrium. A few tiny additional such lesion s at the left side of the sternal manubrium. Osteolytic lesion at head of right clavicle, with pathologic fracture. Large destructive, permeative osteolytic lesion involving anterior half or two-thirds of the right ri b, with associated large soft tissue mass component that is contiguous with, and inseparable from, la rge right anterior superior mediastinal soft tissue tumor mass, which measures approximately 6 x 4.5 x 4.5 cm in aggregate. It compresses and possibly surrounds the right superior vena cava. 1.5 x 1.5 x 1.5 cm malignant right subpectoral lymph node. Slightly smaller such lymph node inferior to that. Additional osteolytic destructive lesions involving anterior aspect of right second rib, anterolatera l aspect of right third rib, proximal aspect of right eighth rib, proximal aspect of right ninth rib, posteromedial aspect of left ninth rib, posterior aspect of left seventh rib, and lateral aspect of left fifth rib. Additional mildly enlarged pretracheal mediastinal lymph nodes at mid mediastinum. No thoracic aortic aneurysm or cardiomegaly. The previously mentioned right pleural effusion has increased in size since last month, now large, oc cupying approximately 50-60% of the right hemithoracic volume. The right mainstem bronchus and its br anches are displaced anteriorly by this large right pleural effusion. It is difficult to evaluate for hilar lymphadenopathy without IV contrast. There is a contralateral tiny left pleural effusion. There are several tiny noncalcified pulmonary nodules bilaterally. Some are along fissures, consisten t with intrapulmonary nodules. Others are indeterminate. Most of them are less than 1 cm in size. The re was a right anterior broadly pleural-based nodule indenting the ventral surface of the right middl e lobe on abdominal CT of 08/06/18 that has not significantly changed in size, measuring approximatel y 1 x 1 x 2 cm. IMPRESSION: 1. Two moderately large left breast masses in the location of the left mastectomy, highly suspicious for recurrent or metastatic left breast cancer. 2. Numerous osseous metastases, involving multiple bilateral ribs, manubrium of sternum, and right c lavicular head (which has a pathologic fracture). 3. Malignant large tumor mass in the right anterior superior mediastinum. This could be extension of the metastatic tumor mass that is destroying the right anterior first rib, malignant mediastinal lym phadenopathy, or a combination of both. 4. Malignant right subpectoral lymph nodes. 5. Large right pleural effusion has increased in volume since 08/06/18. 6. Multiple bilateral small pulmonary nodules, some of which are benign, and others of which are ind eterminate. CODE T. JN R POS: [facility]
--- NOTE | 2018-09-07 14:30 | NM ---
RADIONUCLIDE BONE SCAN: 09/07/18 HISTORY: Bone masses. FINDINGS: Large area of heterogeneously increased uptake involves the medial aspect of the right clavicle. Foca l abnormalities also involve the anterior aspect of the right third and fourth ribs and the posterior aspect of right ribs 7, 8, and 10 and left ribs 6, 7, and 8. Focal abnormality involves the right si de of the upper sternum. Degenerative type uptake involves the shoulders, left knee, and feet. Photopenic defect at the right knee suggests a joint replacement. IMPRESSION: Osseous metastatic disease involving the ribs, sternum, and right clavicle. POS: [id number]
== END 2018-09-07 09:34 | disposition home or self-care (01) ==
LOC: CT 09:33
PROVIDERS: ATTEND Family Medicine
DX: R91.8 Other nonspecific abnormal finding of lung field (principal); M89.50 Osteolysis, unspecified site; N63.20 Unspecified lump in the left breast, unspecified quadrant; C79.51 Secondary malignant neoplasm of bone; J90 Pleural effusion, not elsewhere classified; M84.411A Pathological fracture, right shoulder, initial encounter for fracture
CPT/HCPCS: 71250; 78306; A9503

== ENCOUNTER 2018-10-25 20:40 | Inpatient (IN) | payer MEDICARE, MEDICAID ==
[2018-10-25] MEDS ORDERED: Morphine 4 MG/ML VIAL ONE (22:03)
[2018-10-25] MEDS ORDERED: Ondansetron PF 4 MG/2 ML Vial ONE (22:03)
[2018-10-26] MEDS ORDERED: Morphine 2 MG/ML SYRINGE SLOW IVP PRN (01:36)
[2018-10-26] MEDS ORDERED: Ondansetron ODT 4 MG TAB PO PRN (01:40)
[2018-10-26] MEDS ORDERED: Ondansetron PF 4 MG/2 ML Vial IVP PRN (01:40)
[2018-10-26] MEDS ORDERED: VANC IVPB PRN (02:08)
[2018-10-26] MEDS ORDERED: ZOSYN IVPB PRN (02:08)
[2018-10-26] MEDS ORDERED: Vancomycin HCl 1.5 GM in Sodium Chloride 0.9% 250 ML 300 ML IVPB SCH (02:15)
[2018-10-26 02:18] VITALS: BMI 34.8
[2018-10-26] MEDS ORDERED: HOLD VANCOMYCIN FOR LEVEL >20 FS SCH (03:00)
[2018-10-26] MEDS ORDERED: Vancomycin HCl 1.25 GM in Sodium Chloride 0.9% 250 ML 250 ML IVPB SCH (03:00)
[2018-10-26] MEDS ORDERED: Vancomycin HCl 1 GM in Premix Bag 1 BAG IVPB SCH (03:00)
[2018-10-26] MEDS ORDERED: Vancomycin HCl 750 MG in Sodium Chloride 0.9% 250 ML 250 ML IVPB SCH (03:00)
[2018-10-26] MEDS ORDERED: Vancomycin HCl 500 MG in Sodium Chloride 0.9% 100 ML IVPB SCH (03:00)
[2018-10-26] MEDS: Piperacillin/Tazobactam 2.25 GM in Sodium Chloride 0.9% 100 ML IVPB SCH ×4 (03:30→16:19)
[2018-10-26 03:59] LABS: Calcium, Ionized 1.13 mmol/L (1.12-1.30); O2 Tension (PaO2) 65.5 mmHg (> 70.0); Potassium - ABG Lab 3.75 mmol/L (3.70-5.30); pH, Arterial 7.32 (7.35-7.45)
[2018-10-26] MEDS ORDERED: Naloxone HCl 0.4 mg/ml Vial ONE (04:03)
[2018-10-26 04:06] LABS: ALV-art Gradient 73.535 (0-20); CO2 Tension 71.3 mmHg (35.0-45.0); Puncture Site LBA
[2018-10-26] MEDS ORDERED: Naloxone HCl 0.4 mg/ml Vial IV SCH (04:45)
--- NOTE | 2018-10-26 05:05 | HP ---
CHIEF COMPLAINT: Worsening shortness of breath, known malignant right pleural effusion. HISTORY OF PRESENT ILLNESS AND REVIEW OF SYSTEMS: This is a 78-year-old woman with metastatic breast cancer, who is known to have a malignant pleural effusion involving the right lung. She was transferred from [place] with complaints of increased dyspnea for quite sometime. The patient denies having any fevers, chills, or sweats. Reports having an occasional cough and denies any hemoptysis. The cough has been nonproductive. She has had a mild headache and felt generally unwell. At present time, she does not have any pain, but states she is unable to get comfortable. Difficulty getting great history as patient is somewhat confused at present. She denies having any recent fevers, chills, or sweats. Denies having any nausea or vomiting. No changes with her appetite. No abdominal pain or cramping. No urinary symptoms. She continues to feel short of breath at rest. Continues to say she feels like she cannot "catch her breath." All other review of systems are negative. PAST MEDICAL HISTORY: 1. Metastatic breast cancer. 2. Malignant right pleural effusion. 3. Type 2 diabetes. 4. Hyperlipidemia. 5. Hypertension. 6. Aortic valve disorder. 7. CHF. 8. End-stage renal disease, on dialysis. PAST SURGICAL HISTORY: 1. Appendectomy. 2. Cholecystectomy. 3. Hysterectomy. 4. Bilateral breast mastectomy. 5. Orthopedic surgery. 6. Right knee replacement. 7. Bilateral cataracts. 8. Left arm dialysis fistula. SOCIAL HISTORY: The patient lives at home alone. She is a former smoker and quit more than 10 years ago. Denies any alcohol use or illicit drug use. ALLERGIES: NO KNOWN DRUG ALLERGIES. CURRENT MEDICATIONS: 1. Warfarin 2 mg p.o. daily. 2. Folic acid 0.8 mg p.o. daily. 3. Tianna-Kamala 0.8 mg p.o. daily. 4. Sertraline 50 mg p.o. daily. 5. Lactulose 15 mL once a day. 6. Allopurinol 100 mg p.o. daily. 7. Atorvastatin 10 mg p.o. daily. 8. Renvela 800 mg 2 tablets three times a day. 9. Pantoprazole 40 mg p.o. daily. 10. Coreg 3.125 mg p.o. daily. 11. Gabapentin 300 mg p.o. twice daily. PHYSICAL EXAMINATION: GENERAL: The patient appears restless, sat upright on the stretcher and wanting to get out of bed. She does have labored breathing at rest. VITAL SIGNS: Temperature 98, pulse 104, respirations 18, O2 saturation 95% on 3 L, BP 141/71. HEENT: Normocephalic and atraumatic. Pupils are equal, round, and reactive to light. Sclerae are without icterus. Oropharynx is clear. NECK: Supple with full range of motion. CARDIAC: Regular rate and rhythm. LUNGS: Decreased breath sounds on the right side. ABDOMEN: Soft, nontender, nondistended. EXTREMITIES: No edema or calf swelling/pain. LABORATORY DATA: White blood count 10.1, hemoglobin 10.1, hematocrit 32.9, platelets 281. ABG with pH of 7.37, pCO2 of 55, pO2 of 59, bicarb 35.3. Sodium 142, potassium 3.8, BUN 20, eGFR 32, creatinine 3.59, calcium 9.9. LFTs unremarkable. BNP 248.2. IMPRESSION AND PLAN: Ms. Ansari is a 78-year-old woman who would be admitted to the hospital for management of the following conditions: 1. Large right pleural effusion. At this time, O2 saturations are normal and stable with 3 L of oxygen per nasal cannula. Continue to monitor. Consultations have been placed to Pulmonology for consideration of therapeutic thoracentesis. 2. Empiric antibiotics. Given her immunocompromised state with large pleural effusion and feeling generally unwell, we have prescribed IV antibiotics. 3. End-stage renal disease. Continue dialysis. Nephrology consult requested. 4. Gastrointestinal prophylaxis. 5. Venous thromboembolism prophylaxis. Mechanical SCDs. We will hold off on anticoagulation as she might undergo thoracentesis.. The patient's case was discussed with Dr. Ibanez, who agrees with the plan of care as described above. Job ID: [id number]
[2018-10-26] MEDS ORDERED: Carvedilol 3.125 MG TAB PO SCH (06:00)
[2018-10-26 08:06] LABS: #Eosinphils 0.1 thou/uL (0.0-0.7); #Lymphocytes 0.6 thou/uL (1.20-3.40); #Monocytes 0.8 thou/uL (0.11-0.59); #Neutrophils 8.4 thou/uL (1.40-6.50); %Basophils 0.4 % (0.0-1.0); %Eosinophils 1.2 % (0.0-10.0); %Lymphocytes 5.5 % (21.0-51.0); %Monocytes 8.1 % (0.0-10.0); %Neutrophils 84.8 % (42.0-75.0); Hemoglobin 9.5 g/dL (12.0-16.0); Mean Corpuscular Hemoglobin 29.1 pg (27.0-31.0); Mean Corpuscular Volume 93.8 fL (78.0-98.0); Platelet Count 246 thou/uL (130-400); Red Blood Cell (RBC) Count 3.27 mill/uL (4.20-5.40); White Blood Cell (WBC) Count 9.9 thou/uL (4.8-10.8)
[2018-10-26] MEDS: Sevelamer Carbonate 800 MG TAB PO SCH ×3 (08:09→16:18)
[2018-10-26] MEDS: Famotidine 20 MG TAB PO SCH (08:10)
[2018-10-26 08:13] LABS: ALT (SGPT) 11 U/L (8-55); AST (SGOT) 22 U/L (5-34); Albumin 3.2 g/dL (3.4-4.8); Alkaline Phosphatase 101 U/L (40-150); Anion Gap 15 mmol/L (10-20); BUN (Urea Nitrogen) 26 mg/dL (9.8-20.1); Bilirubin, Total 0.4 mg/dL (0.2-1.2); Calc. Creatinine Clearance 15 mL/min (70-130); Calcium 8.7 mg/dL (7.8-10.44); Carbon Dioxide 30 mmol/L (23-31); Chloride 99 mmol/L (98-107); Estimated GFR-MDRD 11; Globulin 3.1 g/dL (2.4-3.5); Glucose 85 mg/dL (83-110); Potassium 3.6 mmol/L (3.5-5.1); Protein, Total 6.3 g/dL (6.0-8.3); Sodium 140 mmol/L (136-145)
--- NOTE | 2018-10-26 09:34 | PRG ---
DATE OF SERVICE: 10/26/2018 SUBJECTIVE: The patient remains confused at this time. She is currently on 4 L nasal cannula. She is in mild respiratory distress, not much information available from the patient due to current cognitive status. Please note that the patient had received morphine followed by Narcan last night. No family at the bedside. I attempted to call the POA with no answer. REVIEW OF SYSTEMS: Cannot be obtained from the patient due to current cognitive status. PHYSICAL EXAMINATION: VITAL SIGNS: Temperature 98.2, pulse rate of 104, O2 saturations is 95% on 4 L nasal cannula, blood pressure 100/65, and respirations 20. GENERAL: A 78-year-old female in mild respiratory distress, able to complete short phrases. Remains confused. HEENT: Head; atraumatic, normocephalic. Sclerae anicteric. Moist mucous membranes. No oral lesion. NECK: Supple. No significant JVD elevation. LUNGS: Showed diminished air entry at the right base with scattered rhonchi. There were minimal rales at bases. No significant wheezing appreciated. There was minimal accessory muscle use. HEART: S1 and S2 present. Tachycardic. 2/6 systolic murmur over the mitral area. No heaves or pulsation. ABDOMEN: Soft. Bowel sounds present. EXTREMITIES: Trace edema in bilateral lower extremities. SKIN: Warm and dry. LYMPH NODE: No palpable lymph nodes in the neck. LABORATORY FINDINGS: CBC showed WBC 9.9, hemoglobin 9.5, hematocrit 30.7, INR 1.3. Chemistry showed sodium 140, potassium 3.6, chloride 99, bicarb 30, BUN 26, and creatinine 4.49. LFTs in normal range. Albumin 3.2. ABGs earlier today showed pH 7.32, pCO2 of 71.3, PO2 65.5, and bicarbonate 36 on 3 L nasal cannula. DIAGNOSTIC DATA: Chest x-ray by my review showed a large amount of right-sided pleural effusion with pulmonary vascular congestion. CT scan of the brain was negative for acute findings. EKG by my review showed sinus rhythm without significant ST-T wave changes. IMPRESSION: 1. Acute hypoxic and hypercapnic respiratory failure, secondary to large right- sided pleural effusion. 2. End-stage renal disease, on hemodialysis Tuesday, Tuesday, and Tuesday. The patient underwent hemodialysis yesterday. 3. Metastatic breast cancer. 4. Diabetes mellitus, type 2. 5. Hypertension. 6. Hyperlipidemia. 7. Chronic diastolic heart failure. Ejection fraction was 55% to 60% with [id number] aortic regurgitation, [id number] mitral regurgitation. 8. Toxic metabolic encephalopathy, secondary to acute hypoxic and hypercapnic respiratory failure. 9. Obesity with a BMI of 34.8. PLAN: The patient will be transferred to the intermediate care unit for possible need of noninvasive positive pressure ventilation. We will add nebulizer treatment. We will keep her n.p.o. Dr. Mcqueen is at the bedside. Oncology and Pulmonary Services have been consulted. We will continue empiric antibiotics. Continue low-dose carvedilol. We will discontinue morphine. I attempted to call the family with no answer. It is unclear whether the patient is still on warfarin. Please note that the patient was on hospice at home, which was revoked prior to ER arrival. We will consult Palliative Care. Repeat labs in a.m. Continuous O2 monitoring. The code status to be clarified with the family. Again, I tried to contact the family with no answer. Job ID: [id number] MTDShaka
--- NOTE | 2018-10-26 09:46 | PRG ---
DATE OF SERVICE: RENAL MEDICINE SUBJECTIVE: Ms. Ansari is a 78-year-old black female with ESRD, was admitted for shortness of breath. She has a history of metastatic breast cancer. According to the niece, she has been intermittently confused. We are being consulted for maintenance hemodialysis. The patient received dialysis yesterday. During the initial workup, she was found to have significant pleural effusion. REVIEW OF SYSTEMS: Positive for confusion. No nausea. No vomiting. Mild shortness of breath. Denies any fever or chills. Appetite fair. Energy level is fair. No headache. No diplopia. No sore throat. No abdominal pain. No hematochezia. No melena. No hematemesis. HOME MEDICATIONS: Include the followin. Coumadin 2 mg tab daily. 2. Folic acid 0.8 mg daily. 3. Tianna-Kamala one tab daily. 4. Sertraline 50 mg daily. 5. Lactulose 15 mL daily. 6. Allopurinol 100 mg once a day. 7. Atorvastatin 10 mg tab at bedtime. 8. Renvela 800 mg 2 tablets t.i.d. with meals. 9. Protonix 40 mg daily. 10. Coreg 3.125 mg p.o. daily. 11. Gabapentin 300 mg p.o. twice daily. PAST MEDICAL HISTORY: Metastatic breast cancer-to the lungs; history of malignant right pleural effusion; type 2 diabetes mellitus; hyperlipidemia; aortic valve disorder; hypertension; status post CHF; ESRD, currently on maintenance hemodialysis. The patient also has type 2 diabetes mellitus. She is also status post PE and DVT, hypertension, chronic pain, history of morbid obesity. PAST SURGICAL HISTORY: Status post colonoscopy, status post breast biopsy, status post right knee replacement, status post cuffed hemodialysis catheter placement, status post AV fistula placement, status post bilateral mastectomy for breast cancer, status post laparoscopic cholecystectomy. SOCIAL HISTORY: The patient is single, lives alone. Lives in [place], 5 children. Education, 11th grade. No history of smoking. No alcohol intake. No IV drug abuse. Status post blood transfusion. Sedentary lifestyle. ALLERGIES: NONE. TRAUMA: None. IMMUNIZATION: Up-to-date. HOSPITALIZATIONS: Please see past medical history. FAMILY HISTORY: Positive for ESRD, one sister on dialysis. PHYSICAL EXAMINATION: VITAL SIGNS: Blood pressure is noted at 100/65, heart rate 104, temperature 98.2, respiratory rate 18, pulse ox 95%. GENERAL: Noted to be awake, but intermittently confused, not in overt distress and positive for morbid obesity. HEENT: She has slightly pale conjunctivae. Anicteric sclerae. NECK: No neck mass. No carotid bruits. No JVD. CHEST: No deformities. LUNGS: Decreased breath sounds. HEART: Normal sinus rhythm. No murmurs. No gallops. No rubs. ABDOMEN: Globular, soft, nontender. No masses. EXTREMITIES: No edema. No deformities. MEDICATIONS: Medications of October 26, 2018 was reviewed. LABORATORY DATA: Laboratories of October 26, 2018; white count 9.9, hemoglobin 9.5. Sodium 140, potassium 3.6, chloride 99, carbon dioxide 30, BUN 26, creatinine 4.49, magnesium 2.0, albumin 3.2. Chest x-ray of October 25, 2018 shows large amount of right pleural fluid, increased lung markings. CT scan of the brain on October 25, 2018 shows no acute intracranial process. ASSESSMENT AND PLAN: 1. Confusion-this may be from her underlying increased CO2. She will be transferred to the IMCU for closer monitoring. Possibility of thoracentesis is being entertained. 2. Pleural effusion-for possible thoracentesis. Pulmonary consult has been done. 3. End-stage renal disease, stable. We will continue current maintenance hemodialysis on Tuesday, Tuesday, and Tuesday. Again, fluid removal only as tolerated by the patient. Job ID: [id number]
[2018-10-26 11:46] LABS: Pleural Fluid, Protein 3.9 g/dL
--- NOTE | 2018-10-26 12:05 | RAD ---
PORTABLE CHEST: Date: 10/26/18 COMPARISON: 10/25/18. HISTORY: Shortness of breath. Post thoracentesis. FINDINGS: Heart size is enlarged. There are bilateral pleural effusion and bibasilar lung changes. Changes are worse in the right base. The size of the right-sided effusion is reduced as compared to the prior exa m, consistent with the patient's history of thoracentesis. No signs of pneumothorax. IMPRESSION: 1. Worsening lung changes in the left base suggesting some atelectasis, probably with some effusion. 2. Right-sided pleural effusion slightly reduced in size. No signs of pneumothorax post thoracentesi s. POS: [facility]
--- NOTE | 2018-10-26 13:01 | CON ---
DATE OF CONSULTATION: 10/26/2018 REASON FOR CONSULTATION: Shortness of breath. HISTORY OF PRESENT ILLNESS: Ms. Ansari is a 78-year-old female, who was admitted last night with shortness of breath. She is a very poor historian. I think there are some inaccuracies in her history and physical, which I am trying to get explained. I have just got off the phone with the patient's [id number] and I have confirmed that the patient does have metastatic breast cancer to the bone. It is not known that she has a malignant pleural effusion, although she has had fluid diagnosed on the right side in the past, but has never been tapped. The patient was sent down from the floor because of shortness of breath with the intent of placing her on BiPAP therapy. She actually looks fairly comfortable. PAST MEDICAL HISTORY: 1. Metastatic breast cancer to bone. 2. Diabetes mellitus type 2. 3. Chronic renal failure requiring hemodialysis. 4. Hyperlipidemia. 5. Hypertension. 6. Aortic valve disorder. 7. Congestive heart failure. PAST SURGICAL HISTORY: 1. Appendectomy. 2. Cholecystectomy. 3. Hysterectomy. 4. Bilateral breast mastectomy. 5. Orthopedic surgery. 6. Right knee replacement. 7. Bilateral cataract surgery. 8. Right arm dialysis fistula placement. SOCIAL HISTORY: She lives at home alone. She quit smoking more than 10 years ago. Does not drink. Does not use illicit drugs. ALLERGIES: NONE. MEDICATIONS: Prior to admission; 1. Warfarin 2 mg daily. 2. Folate 0.8 mg daily. 3. Tianna-Kamala 0.8 mg daily. 4. Sertraline 50 mg daily. 5. Lactulose 15 mL once daily. 6. Allopurinol 100 mg daily. 7. Atorvastatin 10 mg daily. 8. Renvela 800 mg 2 tablets 3 times daily. 9. Protonix 40 mg daily. 10. Coreg 3.125 mg daily. 11. Gabapentin 300 mg twice daily. REVIEW OF SYSTEMS: Remarkable for shortness of breath, generalized malaise. Otherwise, 12-point review of systems is negative. PHYSICAL EXAMINATION: VITAL SIGNS: Temperature 98.2, pulse 104, respirations 18, O2 saturation 95%, and blood pressure 100/65. HEENT: Unremarkable. NECK: No adenopathy, JVD, or bruits. LUNGS: Diminished breath sounds on right compared to left. CARDIAC: S1, S2. Regular. ABDOMEN: Soft, nontender. EXTREMITIES: Right upper arm AV fistula noted. LABORATORY DATA: White blood cell count 9.9, hematocrit 30, platelet count 246. PH 7.32, pCO2 of 71, pO2 of 65 on 3 L. Sodium 140, potassium 3.6, chloride 99, CO2 of 30, BUN 26, creatinine 4.5, glucose 85. ASSESSMENT: Right pleural effusion by x-ray, that was obtained over in [place] last night. This could be a malignant effusion based on her history of cancer. However, she does have heart failure, renal failure, and this could just be a transudative accumulation. Because she is symptomatic, I feel that it would be important to diagnose this to see whether or not she would require PleurX catheter in the future. PLAN: 1. Diagnostic and therapeutic right thoracentesis. I discussed this procedure with her [id number] on the phone, who is a power of consumer attorney and does give consent for me to do the procedure. She understood the risks involved including bleeding, infection, external lung puncture, and agreed to have me proceed. 2. Further disposition based on fluid studies. Job ID: [id number]
[2018-10-26 13:18] LABS: BF Color Yellow; Body Fluid Source THORACENTESIS FLD; Clarity Hazy (Clear); Tube # EDTA
[2018-10-26 13:19] LABS: BF RBC Count - Manual 23 /cumm; BF WBC/Nonhematics Ct. - Manua 428 /cumm
[2018-10-26 13:25] LABS: BF Segmented Neutrophils 2 %; Cell Count Non Hematic 80 %; Lymphocytes 18 %
--- NOTE | 2018-10-26 14:30 | CON ---
DATE OF CONSULTATION: REASON FOR CONSULTATION: Breast cancer. HISTORY OF PRESENT ILLNESS: Ms. Ansari is a 78-year-old female , who was diagnosed with ER positive, MD negative, HER2 negative breast cancer in 2014. She underwent a radical mastectomy and declined chemotherapy. She was started on Arimidex. Unfortunately, the patient did not return to see Dr. Cee for three years until August of 2018. She had been in and out of the hospital several times for her COPD and pleural effusion. She complained of severe pain around the right clavicle. She was taking a hemp preparation that she obtained on [employer]. She had a 5 cm mass in the lateral part of the left mastectomy scar. She had underwent a CT scan of the chest, abdomen, and pelvis that showed a large right pleural effusion, multiple pulmonary metastasis, a pathological fracture of the right clavicle, a large mass in the superior mediastinum, and multiple METS in the sternum and ribs. She again declined radiation and chemotherapy. She elected to take palliative care with hospice. Dr. Cee discussed the case with Dr. Hugo, who was going to refer her to hospice and manage her while she was on hospice. She presented to the emergency room yesterday with worsening shortness of breath. She was admitted for therapeutic thoracentesis. This was performed by Dr. Knight this morning, and he got over 1 L of fluid. The patient denies any pain at this time. She is confused and very poor historian. History was obtained from medical records. PAST MEDICAL HISTORY: 1. Metastatic breast cancer. 2. Pulmonary embolism. 3. Coronary artery disease. 4. Aortic valve disorder. 5. Mitral valve regurgitation. 6. End-stage renal disease, on hemodialysis. 7. Hypertension. 8. Hyperlipidemia. 9. Type 2 diabetes. 10. Right superior pole renal mass, followed by Urology. 11. Arthritis. 12. Depression. 13. Colon polyps. 14. Diverticulitis. PAST SURGICAL HISTORY: 1. Left modified radical mastectomy in 1989. 2. Right modified radical mastectomy in 2014. 3. Hysterectomy. 4. Appendectomy. 5. Cholecystectomy. 6. AV fistula placement. 7. Cataract surgery. 8. Knee replacement. ALLERGIES: NO KNOWN DRUG ALLERGIES. HOME MEDICATIONS: 1. Allopurinol 100 mg daily. 2. Atorvastatin 10 mg daily. 3. Coreg 3.125 mg every two days. 4. Folic acid daily. 5. Gabapentin b.i.d. 6. Lactulose daily. 7. Protonix daily. 8. Sertraline daily. 9. Renvela t.i.d. 10. Coumadin 2 mg every two days. FAMILY HISTORY: She had a brother with prostate and lung cancer. She has a child with stomach tumor. SOCIAL HISTORY: , has six children. Lives alone. Former smoker. No alcohol or illicit drug use. REVIEW OF SYSTEMS: Negative, although the patient does have mild confusion. PHYSICAL EXAMINATION: VITAL SIGNS: Temperature 98.2, pulse is 97, respiratory rate 18, and blood pressure is 100/65. GENERAL: Well-developed, well-nourished female, in no acute distress. HEENT: Normocephalic and atraumatic. Pupils are equal and reactive to light. NECK: Supple. CV: Regular rate and rhythm. LUNGS: Clear anteriorly. ABDOMEN: Obese. Bowel sounds are positive. EXTREMITIES: No clubbing, cyanosis, or edema. SKIN: No rash. HEMATOLOGICAL: No petechiae or purpura. NEUROLOGICAL: Nonfocal. PSYCH: The patient is alert, but pleasantly confused. PERTINENT LABS AND X-RAYS: Current WBCs are 9.9, hemoglobin 9.5, hematocrit 30.7, platelet count is 246,000, 85% neutrophils, 5% lymphocytes. Sodium is 140, potassium 3.6, chloride 99, CO2 is 30, BUN is 26, creatinine is 4.49, calcium 8.7, magnesium 2.0, bilirubin 0.4, AST is 22, ALT is 11, alkaline phosphatase is 101, serum total protein 6.3, albumin 3.2, and globulin 3.1. ASSESSMENT: 1. Metastatic breast cancer. 2. Right pleural effusion. DISCUSSION: The patient has seen Dr. Cee recently. She again declined chemo and radiation. She was referred to palliative care and hospice. Unclear if she followed through with that as Dr. Hugo, her primary care, was managing. Recommendation is the same. There is no acute intervention needed. Thank you for the consult. Job ID: [id number] [facility]
--- NOTE | 2018-10-26 14:39 | OP ---
DATE OF PROCEDURE: 10/26/2018 PROCEDURE PERFORMED: Thoracentesis. PREOPERATIVE DIAGNOSIS: Right pleural effusion. POSTOPERATIVE DIAGNOSIS: Right pleural effusion. ANESTHESIA: 1% lidocaine without epinephrine. DESCRIPTION OF PROCEDURE: Informed consent was obtained from the patient's daughter, along with [id number]. She understood the risks involved including bleeding, infection, pneumothorax and agreed to proceed. Ultrasound was used to identify the best site for the tap posteriorly right midscapular line 5th and 6th interspace. The site was cleansed with chlorhexidine and draped sterilely. 1% lidocaine was used to anesthetize the entry site. A Uuys-M-Jwgurvyi catheter was inserted in the chest. Approximately 1.6 L of natalie colored pleural fluid was removed and sent for appropriate studies. She tolerated the procedure well. Job ID: [id number]
[2018-10-27] MEDS: Piperacillin/Tazobactam 2.25 GM in Sodium Chloride 0.9% 100 ML IVPB SCH ×3 (02:43→18:11)
[2018-10-27 05:27] LABS: #Eosinphils 0.1 thou/uL (0.0-0.7); #Lymphocytes 0.7 thou/uL (1.20-3.40); #Monocytes 0.7 thou/uL (0.11-0.59); #Neutrophils 6.1 thou/uL (1.40-6.50); %Basophils 0.6 % (0.0-1.0); %Eosinophils 1.3 % (0.0-10.0); %Lymphocytes 9.4 % (21.0-51.0); %Monocytes 9.7 % (0.0-10.0); Hemoglobin 9.1 g/dL (12.0-16.0); Mean Corpuscular HGB CONC 31.2 g/dL (32.0-36.0); Mean Corpuscular Hemoglobin 29.3 pg (27.0-31.0); Mean Platelet Volume 8.2 fL (7.4-10.4); Platelet Count 297 thou/uL (130-400); Red Blood Cell (RBC) Count 3.11 mill/uL (4.20-5.40); White Blood Cell (WBC) Count 7.7 thou/uL (4.8-10.8)
[2018-10-27 06:34] LABS: ALT (SGPT) 12 U/L (8-55); AST (SGOT) 25 U/L (5-34); Albumin 2.9 g/dL (3.4-4.8); Alkaline Phosphatase 88 U/L (40-150); Anion Gap 20 mmol/L (10-20); BUN (Urea Nitrogen) 36 mg/dL (9.8-20.1); Bilirubin, Total 0.3 mg/dL (0.2-1.2); Calc. Creatinine Clearance 10 mL/min (70-130); Calcium 8.5 mg/dL (7.8-10.44); Carbon Dioxide 26 mmol/L (23-31); Chloride 97 mmol/L (98-107); Estimated GFR-MDRD 7; Globulin 3.2 g/dL (2.4-3.5); Glucose 97 mg/dL (83-110); Protein, Total 6.1 g/dL (6.0-8.3); Sodium 139 mmol/L (136-145)
--- NOTE | 2018-10-27 07:36 | PRG ---
DATE OF SERVICE: 10/27/2018 SUBJECTIVE: The patient feels better. The fluid cytology is exudative barely. Differential was not completed on the fluid. The cytology report is pending. She said she is breathing much better. OBJECTIVE: VITAL SIGNS: Temperature is 98.3, pulse 80, respirations 18, O2 saturation 100% on 3 L. HEENT: Unremarkable. NECK: No adenopathy or JVD. LUNGS: Clear on the left. Diminished breath sounds at right base. CARDIAC: S1, S2. Regular. ABDOMEN: Soft. EXTREMITIES: No edema. LABORATORY DATA: Sodium 139, potassium 4, chloride 97, CO2 of 26, BUN 36, creatinine 6.5, and glucose 97. White blood cell count 7.7, hematocrit 29.2, and platelet count 297. ASSESSMENT: 1. Metastatic breast cancer. 2. Right pleural effusion, which could be malignant, although visual inspection yesterday suggested that it could be a benign process. 3. Chronic renal failure. PLAN: The patient is resuming hemodialysis. She has taken herself off hospice care. She can be transferred out to either the Medical or Oncology units. I think she has a very poor understanding about her cancer process that may not change even with intense education. Job ID: [id number]
[2018-10-27] MEDS: Sevelamer Carbonate 800 MG TAB PO SCH ×3 (08:28→18:12)
[2018-10-27] MEDS: Famotidine 20 MG TAB PO SCH (08:28)
[2018-10-27] MEDS ORDERED: Dextrose 50% Abboject 50 ML SYRINGE IVP PRN (10:20)
[2018-10-27] MEDS ORDERED: Dextrose 5% in Water 1,000 ML IV PRN (10:20)
[2018-10-27] MEDS: HumaLOG 300 UNITS/3 ML VIAL SC PRN (10:33)
[2018-10-27 11:31] LABS: Vancomycin, Random 17.8 ug/mL (See Comment)
--- NOTE | 2018-10-27 12:49 | PDOC.PN ---
- Subjective Encounter Start Date: 10/27/18 Encounter Start Time: 10:30 Subjective: c/o backache - Objective Resuscitation Status - Order Detail: 10/26/18 13:23 Resuscitation Status Routine Resuscitation Status: DNAR: NO Resuscitation Discussed with: confirmed with pt and her MPOA Vital Signs & Weight: Vital Signs (12 hours) Temp Pulse Resp Pulse Ox 10/27/18 12:00 99.4 F 10/27/18 11:42 87 16 95 10/27/18 08:00 96 10/27/18 07:57 99.8 F H 10/27/18 07:51 112 H 22 H 10/27/18 04:00 98.3 F 10/27/18 02:20 80 18 100 Weight Weight 203 lb Most Recent Monitor Data Heart Rate from ECG 93 NIBP 123/43 NIBP BP-Mean 69 Respiration from ECG 17 SpO2 93 Result Diagrams: 10/27/18 04:14 10/27/18 04:14 Additional Labs: Accuchecks 10/27/18 10/26/18 10:22 16:55 POC Glucose 186 H 107 Phys Exam - Physical Examination Neck: no JVD Respiratory: clear to auscultation bilateral (Decrease air entry at right base) Cardiovascular: RRR Gastrointestinal: soft Musculoskeletal: no edema, edema present Dx/Plan (1) Metastatic breast cancer Code(s): C50.919 - MALIGNANT NEOPLASM OF UNSP SITE OF UNSPECIFIED FEMALE BREAST Status: Acute Comment: With pleural effusion.. (2) HTN (hypertension) Code(s): I10 - ESSENTIAL (PRIMARY) HYPERTENSION Status: Acute Comment: controlled. (3) Diabetes Code(s): E11.9 - TYPE 2 DIABETES MELLITUS WITHOUT COMPLICATIONS Status: Acute Comment: BS satisfactory (4) CKD (chronic kidney disease) stage 5, GFR less than 15 ml/min Code(s): N18.5 - CHRONIC KIDNEY DISEASE, STAGE 5 Status: Acute Plan: Seen by nephrology. (5) Shortness of breath Code(s): R06.02 - SHORTNESS OF BREATH Status: Acute (6) Shortness of breath Code(s): R06.02 - SHORTNESS OF BREATH Status: Acute Comment: With pleural effusion in the setting or renal failure, breast cancer.. f/u with oncology and pulmonary and nephrology. - Plan -: Continue current therapy. * .
--- NOTE | 2018-10-27 12:54 | PQF ---
ARELIS SHEA KARLEE MOSQUERA [id number] CLINICAL DOCUMENTATION IMPROVEMENT CLARIFICATION FORM: ICD-10 Updated PLEASE DO AN ADDENDUM TO THE PROGRESS NOTE WITH ANY DOCUMENTATION UPDATES OR ADDITIONS AND CARRY THROUGH TO DC SUMMARY. THANK YOU. DATE: 10/27/2018 ATTN: DR. GREENE Please exercise your independent, professional judgment in responding to the clarification form. Clinical indicators are provided on the bottom of this form for your review Please check appropriate box(s) to clarify if the following diagnosis has been ruled in or ruled out: *MALIGNANT pleural effusion* [ ] Ruled in diagnosis [ ] Continue to treat [ ] Resolved [ ] Ruled out diagnosis [ ] Cannot rule out diagnosis [ ] Other diagnosis [ ] Unable to determine In addition, please specify: Present on Admission (POA): [ ] Yes [ ] No [ ] Unable to determine For continuity of documentation, please document condition throughout progress notes and discharge summary. Thank You. CLINICAL INDICATORS - SIGNS / SYMPTOMS / LABS: 10/26-H&P: Woman with metastatic breast cancer with known malignant pleural effusion of the right lung. 10/26-PN: Acute hypoxic and hypercapnic respiratory failure secondary to large right sided pleural effusion. RISK FACTORS: 10/26-Onc: History of breast cancer with radical mastectomy and declined chemo. CT showed multiple pulmonary mets, mets to sternum and ribs. Admitted for therapeutic thoracentesis. History CHF, ESRD on HD. TREATMENTS: Pulmonary Consult Thoracentesis Diuresis Probable Hospice Thank you, Kati (This form is maintained as a part of the permanent medical record) 2015 [employer]. All Rights Reserved Kati Carrillo RN, CDIS [email or web address] [phone] MTDD
--- NOTE | 2018-10-27 18:39 | PRG ---
DATE OF SERVICE: 10/27/2018 SUBJECTIVE: Ms. Ansari is a 78-year-old black female with ESRD, admitted for confusion. She was also found to have pleural effusion and thoracentesis was done. Her breathing has much improved. Consideration that this is a malignant right pleural effusion is being considered. She does have a history of metastatic breast cancer. She underwent dialysis without any difficulty. OBJECTIVE: VITAL SIGNS: Blood pressure is 117/59, temperature 99, heart rate 78, and pulse ox 100%. GENERAL: Awake, alert, comfortable, obese, not in distress. SKIN: Adequate turgor. HEENT: Slightly pale conjunctivae. Anicteric sclerae. NECK: No neck mass. No carotid bruits. No JVD. CHEST: No deformities. LUNGS: Decreased breath sounds. HEART: Normal sinus rhythm. No murmurs, no gallops, no rubs. ABDOMEN: Globular, soft, nontender. No masses. EXTREMITIES: No edema. No deformities. MEDICATIONS: Medications of October 27, 2018, were reviewed. LABORATORY DATA: Laboratories of October 27, 2018: White count 7.7, hemoglobin 9.1. Sodium 139, potassium 4, chloride 97, carbon dioxide 26, BUN 36, creatinine 6.49, glucose 97, AST 25, ALT 12. Thoracentesis showed a white count of 428. Pathology of pleural effusion showed few malignant cells present on cytospin only. ASSESSMENT AND PLAN: 1. End-stage renal disease, stable. Continue current maintenance hemodialysis of 3 times a week. Again, fluid removal as tolerated. 2. Breast cancer, metastatic to the lungs - right thoracentesis done, which showed some malignant cells. Please note, Oncology has been consulted. Overall, agree with current management. Job ID: [id number]
[2018-10-27] MEDS ORDERED: Morphine 4 MG/ML VIAL SLOW IVP PRN (19:24)
[2018-10-27] MEDS: Lorazepam 2 MG/ML VIAL SLOW IVP PRN (19:28)
[2018-10-27] MEDS ORDERED: Vancomycin HCl 500 MG in Sodium Chloride 0.9% 100 ML IVPB SCH (21:00)
[2018-10-27] MEDS ORDERED: diphenhydrAMINE 50 MG/ML VIAL IVP SCH (23:15)
[2018-10-28] MEDS: Piperacillin/Tazobactam 2.25 GM in Sodium Chloride 0.9% 100 ML IVPB SCH ×3 (01:45→16:41)
[2018-10-28] MEDS ORDERED: Haloperidol Lactate 5 MG/ML VIAL SLOW IVP SCH (02:00)
[2018-10-28] MEDS: Lorazepam 2 MG/ML VIAL SLOW IVP PRN ×3 (04:33→22:37)
[2018-10-28] MEDS: Sevelamer Carbonate 800 MG TAB PO SCH ×4 (08:50→18:03)
[2018-10-28] MEDS: Famotidine 20 MG TAB PO SCH (08:50)
[2018-10-28] MEDS: Carvedilol 3.125 MG TAB PO SCH (08:52)
--- NOTE | 2018-10-28 11:24 | PDOC.PN ---
- Subjective Encounter Start Date: 10/28/18 Encounter Start Time: 10:25 Subjective: Was confused, agitated earlier.. - Objective Resuscitation Status - Order Detail: 10/26/18 13:23 Resuscitation Status Routine Resuscitation Status: DNAR: NO Resuscitation Discussed with: confirmed with pt and her MPOA Vital Signs & Weight: Vital Signs (12 hours) Temp Pulse Resp BP Pulse Ox 10/28/18 11:04 101 H 12 10/28/18 09:00 98.2 F 101 H 20 139/61 96 10/28/18 08:00 96 10/28/18 04:35 98.0 F 89 20 134/63 94 L Weight Weight 203 lb Most Recent Monitor Data Heart Rate from ECG 93 NIBP 101/53 NIBP BP-Mean 69 Respiration from ECG 17 SpO2 96 I&O: 10/27/18 10/28/18 10/29/18 06:59 06:59 06:59 Intake Total 1000 Balance 1000 Result Diagrams: 10/27/18 04:14 10/27/18 04:14 Additional Labs: Accuchecks 10/28/18 10/27/18 10/27/18 05:58 22:41 17:01 POC Glucose 86 133 H 134 H Phys Exam - Physical Examination Neck: no JVD Respiratory: clear to auscultation bilateral Cardiovascular: RRR Gastrointestinal: soft Musculoskeletal: no edema Dx/Plan (1) Metastatic breast cancer Code(s): C50.919 - MALIGNANT NEOPLASM OF UNSP SITE OF UNSPECIFIED FEMALE BREAST Status: Acute Comment: With pleural effusion, pericardial effusion... Prsent on admission. Possibly due to fluid excess Vs malignancy; evaluation in progress. Etiology unsure at this time. (2) HTN (hypertension) Code(s): I10 - ESSENTIAL (PRIMARY) HYPERTENSION Status: Acute Comment: controlled. (3) Diabetes Code(s): E11.9 - TYPE 2 DIABETES MELLITUS WITHOUT COMPLICATIONS Status: Acute Comment: BS satisfactory (4) CKD (chronic kidney disease) stage 5, GFR less than 15 ml/min Code(s): N18.5 - CHRONIC KIDNEY DISEASE, STAGE 5 Status: Acute Comment: On HD. (5) Shortness of breath Code(s): R06.02 - SHORTNESS OF BREATH Status: Acute (6) Shortness of breath Code(s): R06.02 - SHORTNESS OF BREATH Status: Acute Comment: With pleural effusion in the setting or renal failure, breast cancer.. f/u with oncology and pulmonary and nephrology. (7) Confusion and disorientation Code(s): R41.0 - DISORIENTATION, UNSPECIFIED Status: Acute Plan: may be related to medication. Attempt to hold narcotics - Plan -: Continue current therapy. -: f/u with consultants. * .
[2018-10-28 13:07] LABS: Bilirubin Small (Negative); Blood, Urine Negative (Negative); Clarity CLOUDY (Clear); Glucose, Urine (Dipstick) Negative (Negative); Leukocyte Moderate (Negative); Nitrite Negative (Negative); Protein, Urine (Dipstick) Negative (Neg-Trace); Specific Gravity, Urine 1.017 (1.002-1.036); Urobilinogen 0.2 mg/dL (0.2-1.0)
[2018-10-28 13:10] LABS: Bacteria/HPF None Seen HPF (None Seen); Hyaline Casts/LPF 7-10 HYALINE CAST LPF (0-3 Hyaline); Pathc Cast-AUWi Flag 1.74 (0-2.49); RBC/HPF 0-3 HPF (0-3)
[2018-10-28 13:14] LABS: Renal Epithelial None Seen HPF (0-3); Transitional Epithelial 0-3 HPF (0-3)
--- NOTE | 2018-10-28 19:06 | PRG ---
DATE OF SERVICE: 10/28/2018 SERVICE: Pulmonary Medicine. INTERVAL HISTORY: The patient does not have any shortness of breath. She denies any sputum production, but she has been having a croupy cough. She has been coughing from the upper airway. I watched the patient sleeping at bedside today. She clearly has some obstructive events. There were no reported overnight events. PHYSICAL EXAMINATION: VITAL SIGNS: Afebrile, pulse 101, blood pressure 139/61, respirations 20, saturation 96% on 2 L nasal cannula. GENERAL: The patient is awake and alert, in no apparent distress. LUNGS: Decent air entry. There are crackles and rhonchi present. No wheezing. There is no prolonged expiratory phase. HEART: Normal rate, regular. ABDOMEN: Soft, nontender, and nondistended. Bowel sounds are positive. MUSCULOSKELETAL: No cyanosis or clubbing. There is no pitting in the bilateral lower extremities. NEUROLOGIC: Grossly nonfocal. LABORATORY DATA: Pleural fluid LDH is 311, glucose 94. Nonhematologic cells predominate. Total fluid protein 3.9. Pathology was positive for malignant cells. ASSESSMENT: 1. Breast cancer, widely metastatic. 2. Malignant pleural effusion on the right. There was scant cellular material, but malignant cells were identified. 3. End-stage renal disease, on hemodialysis. DISCUSSION AND PLAN: Pulmonary will continue to follow while the patient remains inhouse. Once this fluid re-accumulates, she may be a candidate for a PleurX catheter, particularly with essential transition to a nursing facility. Please call with additional questions or concerns if she gets into any troubles sooner. From a purely respiratory standpoint, she can be considered for transition out of the hospital. Job ID: [id number]
[2018-10-28] MEDS: Acetaminophen 325 MG TAB PO PRN (19:24)
[2018-10-29] MEDS: Piperacillin/Tazobactam 2.25 GM in Sodium Chloride 0.9% 100 ML IVPB SCH ×3 (01:31→16:36)
[2018-10-29 04:24] LABS: Vancomycin, Random 18.5 ug/mL (See Comment)
[2018-10-29] MEDS: Sevelamer Carbonate 800 MG TAB PO SCH ×3 (09:35→16:36)
[2018-10-29] MEDS: Famotidine 20 MG TAB PO SCH (09:35)
--- NOTE | 2018-10-29 09:46 | PRG ---
DATE OF SERVICE: 10/29/2018 SUBJECTIVE: Ms. Ansari is a 78-year-old black female with ESRD, was admitted for confusion and shortness of breath. She was found to have a right pleural effusion and underwent thoracentesis. The pleural effusion was suggestive of malignant pleural effusion. In the interim, she continues to be intermittently confused and very agitated. Possibility for hospice is being considered. OBJECTIVE: VITAL SIGNS: Blood pressure is noted at 113/56, heart rate 93, respiratory rate 20, temperature 98.4, and pulse ox 92%. GENERAL: The patient is sleeping comfortable, obese, not in distress. SKIN: Adequate turgor. HEENT: Pinkish conjunctivae. Anicteric sclerae. NECK: No neck mass. No carotid bruits. No JVD. CHEST: No deformities. LUNGS: Decreased breath sounds. HEART: Normal sinus rhythm. No murmur. No gallops. No rubs. ABDOMEN: Globular, soft, and nontender. No masses. EXTREMITIES: No edema. No deformities. MEDICATIONS: Medications of August 28, 2019, were reviewed. LABORATORY DATA: Laboratories of October 27, 2018; white count 7.7, hemoglobin 9.1. On October 29, 2018; glucose 79. On October 27, 2018; BUN 36 and creatinine 6.49. ASSESSMENT AND PLAN: 1. End-stage renal disease, stable. We will continue current Tuesday, Tuesday, and Tuesday hemodialysis until the patient can finalize their decision on palliative care. 2. Breast cancer, metastatic to the lungs - has a right malignant pleural effusion. Continue supportive care. In the past, the patient has declined chemotherapy. 3. Anemia, p.r.n. blood transfusion. 4. Overall prognosis remains guarded. Job ID: [id number]
--- NOTE | 2018-10-29 10:49 | PDOC.PN ---
- Subjective Encounter Start Date: 10/29/18 Encounter Start Time: 07:30 -: No complaint expressed. -: Less confused. better. - Objective Resuscitation Status - Order Detail: 10/26/18 13:23 Resuscitation Status Routine Resuscitation Status: DNAR: NO Resuscitation Discussed with: confirmed with pt and her MPOA Vital Signs & Weight: Vital Signs (12 hours) Pulse Ox 10/29/18 03:52 99 10/29/18 03:51 99 Weight Weight 203 lb Most Recent Monitor Data Heart Rate from ECG 93 NIBP 101/53 NIBP BP-Mean 69 Respiration from ECG 17 SpO2 96 I&O: 10/28/18 10/29/18 10/30/18 06:59 06:59 06:59 Intake Total 1000 700 Balance 1000 700 Result Diagrams: 10/27/18 04:14 10/27/18 04:14 Additional Labs: Accuchecks 10/29/18 10/28/18 10/28/18 05:47 20:51 16:46 POC Glucose 79 147 H 91 10/28/18 11:20 POC Glucose 92 Phys Exam - Physical Examination Neck: no JVD Respiratory: clear to auscultation bilateral Cardiovascular: RRR Gastrointestinal: soft Musculoskeletal: no edema Neurological: moves all 4 limbs Dx/Plan (1) Metastatic breast cancer Code(s): C50.919 - MALIGNANT NEOPLASM OF UNSP SITE OF UNSPECIFIED FEMALE BREAST Status: Acute Comment: With pleural effusion, pericardial effusion... Present on admission. Possibly due to fluid excess Vs malignancy; evaluation in progress. Etiology unsure at this time. (2) HTN (hypertension) Code(s): I10 - ESSENTIAL (PRIMARY) HYPERTENSION Status: Acute Comment: controlled. (3) Diabetes Code(s): E11.9 - TYPE 2 DIABETES MELLITUS WITHOUT COMPLICATIONS Status: Acute Comment: BS satisfactory (4) CKD (chronic kidney disease) stage 5, GFR less than 15 ml/min Code(s): N18.5 - CHRONIC KIDNEY DISEASE, STAGE 5 Status: Acute Comment: On HD. (5) Shortness of breath Code(s): R06.02 - SHORTNESS OF BREATH Status: Acute (6) Shortness of breath Code(s): R06.02 - SHORTNESS OF BREATH Status: Acute Comment: With pleural effusion in the setting or renal failure, breast cancer.. f/u with oncology and pulmonary and nephrology. (7) Confusion and disorientation Code(s): R41.0 - DISORIENTATION, UNSPECIFIED Status: Acute - Plan -: Continue current therapy. -: f/u with consultants. * .
[2018-10-29] MEDS ORDERED: Fleet Enema 133 ML BOT FS PRN (15:59)
[2018-10-29] MEDS: HumaLOG 300 UNITS/3 ML VIAL SC PRN (20:32)
[2018-10-29] MEDS: Acetaminophen 325 MG TAB PO PRN (20:33)
[2018-10-29] MEDS: Lorazepam 2 MG/ML VIAL SLOW IVP PRN (21:00)
[2018-10-30] MEDS: Piperacillin/Tazobactam 2.25 GM in Sodium Chloride 0.9% 100 ML IVPB SCH ×3 (00:57→15:52)
[2018-10-30] MEDS: Acetaminophen 325 MG TAB PO PRN (04:21)
[2018-10-30 08:16] LABS: Vancomycin, Random 16.1 ug/mL (See Comment)
--- NOTE | 2018-10-30 08:43 | PRG ---
DATE OF SERVICE: 10/30/2018 SUBJECTIVE: The patient was seen in the dialysis suite this morning. She appears to be doing well and had no complaints. OBJECTIVE: VITAL SIGNS: Temperature 98.0, pulse 114, respirations 16, O2 saturation 98% on 3 L. HEENT: Unremarkable. NECK: No JVD. LUNGS: Clear air entry anteriorly. CARDIOVASCULAR: S1, S2. Regular. ABDOMEN: Soft. EXTREMITIES: No edema. ASSESSMENT: Metastatic breast cancer with malignant pleural effusion. RECOMMENDATIONS: Mainly an oncologic question at this point as to if any treatment can be offered. If not, then I think she needs to go back on hospice care. Should the pleural effusion become incapacitating in the future, then PleurX catheter could be considered. Job ID: [id number]
--- NOTE | 2018-10-30 09:06 | PDOC.PN ---
- Subjective Encounter Start Date: 10/30/18 Encounter Start Time: 11:30 Subjective: Patient reports some pain on left side, especially at lump over inferior -: left rib cage/LUQ. Hasn't asked for pain meds before, but states she has be -: been in pain for some time. Breathing ok. - Objective Resuscitation Status - Order Detail: 10/26/18 13:23 Resuscitation Status Routine Resuscitation Status: DNAR: NO Resuscitation Discussed with: confirmed with pt and her MPOA MAR Reviewed: Yes Vital Signs & Weight: Vital Signs (12 hours) Temp Pulse Resp BP Pulse Ox 10/30/18 08:00 97.9 F 88 18 125/84 98 10/30/18 07:38 114 H 16 10/29/18 22:28 98 Weight Weight 203 lb Most Recent Monitor Data Heart Rate from ECG 93 NIBP 101/53 NIBP BP-Mean 69 Respiration from ECG 17 SpO2 96 I&O: 10/29/18 10/30/18 10/31/18 06:59 06:59 06:59 Intake Total 700 Balance 700 Result Diagrams: 10/27/18 04:14 10/27/18 04:14 Additional Labs: Accuchecks 10/30/18 10/29/18 10/29/18 05:31 20:15 16:28 POC Glucose 97 157 H 130 H 10/29/18 11:07 POC Glucose 146 H Phys Exam - Physical Examination Constitutional: NAD HEENT: moist MMs Respiratory: no rales, no rhonchi, clear to auscultation bilateral Cardiovascular: RRR Gastrointestinal: soft, positive bowel sounds painful lump in subcutaneous tissues overlying the left ant inferior ribs Neurological: non-focal, moves all 4 limbs Psychiatric: normal affect Dx/Plan (1) Metastatic breast cancer Code(s): C50.919 - MALIGNANT NEOPLASM OF UNSP SITE OF UNSPECIFIED FEMALE BREAST Status: Acute Comment: With pleural effusion, pericardial effusion, likely malignant in origin Palliative care, Oncology following, patient has refused chemo and radiation, plan is to go on hospice (2) Shortness of breath Code(s): R06.02 - SHORTNESS OF BREATH Status: Acute Comment: With pleural effusion in the setting or renal failure, breast cancer.. f/u with oncology and pulmonary and nephrology. (3) Acute metabolic encephalopathy Code(s): G93.41 - METABOLIC ENCEPHALOPATHY Status: Acute Comment: multifactoral, due to cancer, shortness of breath, renal failure (4) HTN (hypertension) Code(s): I10 - ESSENTIAL (PRIMARY) HYPERTENSION Status: Chronic Qualifiers: Hypertension type: essential hypertension Qualified Code(s): I10 - Essential (primary) hypertension Comment: controlled. (5) DM2 (diabetes mellitus, type 2) Status: Chronic Comment: controlled and at goal (6) CKD (chronic kidney disease) stage 5, GFR less than 15 ml/min Code(s): N18.5 - CHRONIC KIDNEY DISEASE, STAGE 5 Status: Chronic Comment: On HD. - Plan cont current plan of care, respiratory therapy, DVT proph w/SCDs D/c to [place] [facility] once arranged. Dual dx so can -: continue dialysis on hospice. * . - Discharge Day Encounter end time: 11:40
[2018-10-30] MEDS ORDERED: Guaifenesin DM 100-10/5 ML UDCUP PO PRN (09:49)
--- NOTE | 2018-10-30 09:59 | PRG ---
DATE OF SERVICE: 10/30/2018 RENAL MEDICINE SUBJECTIVE: Ms. Ansari is a 78-year-old black female, who was initially admitted for confusion and shortness of breath. She was found to have malignant right pleural effusion-she did undergo thoracentesis. The patient's family is contemplating hospice. For the moment, they wanted to continue dialysis. She still has intermittent confusion. She also complains of some dry cough. OBJECTIVE: VITAL SIGNS: Blood pressure is 125/84 with a heart rate of 88, respiratory rate 18, temperature 97.9, pulse ox 98%. GENERAL: Noted to be awake, alert, and comfortable, not in distress. SKIN: Adequate turgor. HEENT: She has a slightly pale conjunctivae. Anicteric sclerae. No neck mass. No carotid bruits. No JVD. CHEST: No deformities. LUNGS: Decreased breath sounds. HEART: Normal sinus rhythm. No murmur. No gallops. No rubs. ABDOMEN: Globular, soft, and nontender. No masses. EXTREMITIES: No edema. No deformities. MEDICATIONS: Medications of October 30, 2018, reviewed. LABORATORY DATA: Labs of October 30, 2018, glucose 97. On October 27, 2018; BUN 36 and creatinine 6.49. ASSESSMENT AND PLAN: 1. End-stage renal disease, stable. We will continue current Tuesday, Tuesday, and Tuesday hemodialysis. Fluid removal only as tolerated by the patient. 2. Breast cancer with metastatic lesions to the lungs. Continue supportive care. Currently declining any chemotherapy. Overall, agree with current management. Continue supportive care. Awaiting final decision by the family. Job ID: [id number]
[2018-10-30] MEDS: Sevelamer Carbonate 800 MG TAB PO SCH ×2 (10:24→12:11)
[2018-10-30] MEDS: Famotidine 20 MG TAB PO SCH (12:08)
[2018-10-30] MEDS: Carvedilol 3.125 MG TAB PO SCH (12:08)
[2018-10-30] MEDS ORDERED: Morphine 4 MG/ML VIAL SLOW IVP PRN (12:23)
[2018-10-30] MEDS ORDERED: HYDROcodone/Acetaminophen 10/325 mg Tablet PO PRN (15:41)
[2018-10-30 16:45] VITALS: BP 115/72; TEMP 98.3
--- NOTE | 2018-10-31 04:32 | DIS ---
DATE OF ADMISSION: 10/26/2018 DATE OF DISCHARGE: 10/30/2018 PRIMARY CARE PHYSICIAN: Dr. Hugo. REASON FOR ADMISSION: Shortness of breath from malignant pleural effusion. DIAGNOSES AT DISCHARGE: 1. Metastatic breast cancer. 2. Malignant pleural effusion status post thoracentesis. 3. Hypertension. 4. Diabetes mellitus, type 2. 5. Chronic kidney disease, stage 5, on dialysis. PROCEDURE: Thoracentesis. CONSULTATIONS: 1. Pulmonology, Dr. Knight. 2. Heme/Oncology, Ruby Hernandez for Dr. Cee. 3. Nephrology, Dr. Mcqueen. PERTINENT LABORATORY: The patient's thoracentesis fluid did have some scarce malignant cells in it. SUMMARY OF HOSPITAL COURSE: This is a 78-year-old female with a known history of metastatic breast cancer for which she has refused chemotherapy and radiation in the past, was supposed to go see her primary care doctor and eventually get on hospice. She went to the [facility] with complaints of dyspnea that was progressive. She was found to have a pleural effusion, was transferred here. The patient had a thoracentesis done which relieved her pleural effusion and improved her shortness of breath. She had a repeat consultation with Heme/Oncology and was recommended the patient be set up with hospice. The patient has end-stage renal disease, so Dr. Mcqueen was consulted and she received dialysis during her hospitalization. She is approved for discharge with dual diagnosis, and so she will be able to continue her dialysis as an outpatient. DISCHARGE MANAGEMENT: Location: Discharged to [facility] with [facility]. Medications: As per hospice. Activity: As tolerated. Diet: Renal diet. Continue oxygen as needed. Job ID: [id number]
== END 2018-10-30 16:53 | DRG 597 ==
LOC: ERS 20:40 → T4-B 23:14 → OBSVTOIN 10-26 07:43 → IMCU/EMU 10-26 09:13 → ONC 10-27 22:16 → IMCU/EMU 10-27 22:25 → ONC 10-27 22:26
PROVIDERS: ADMIT Hospitalist; ATTEND Hospitalist
PROC: 0W993ZX Drainage of Right Pleural Cavity, Percutaneous Approach, Diagnostic (ICD-10-PCS; principal; 2018-10-26)
PROC: 5A1D70Z Performance of Urinary Filtration, Intermittent, Less than 6 Hours Per Day (ICD-10-PCS; 2018-10-27)
PROC: 5A1D70Z Performance of Urinary Filtration, Intermittent, Less than 6 Hours Per Day (ICD-10-PCS; 2018-10-30)
DX: C50.919 Malignant neoplasm of unspecified site of unspecified female breast (principal); N18.6 End stage renal disease; J96.01 Acute respiratory failure with hypoxia; J96.02 Acute respiratory failure with hypercapnia; G92 Toxic encephalopathy; J91.0 Malignant pleural effusion; I13.2 Hypertensive heart and chronic kidney disease with heart failure and with stage 5 chronic kidney disease, or end stage renal disease; C79.51 Secondary malignant neoplasm of bone; I50.32 Chronic diastolic (congestive) heart failure; E78.5 Hyperlipidemia, unspecified; E11.22 Type 2 diabetes mellitus with diabetic chronic kidney disease; Z66 Do not resuscitate; E66.9 Obesity, unspecified; Z68.34 Body mass index [BMI] 34.0-34.9, adult; Z87.891 Personal history of nicotine dependence; Z99.2 Dependence on renal dialysis; Z90.49 Acquired absence of other specified parts of digestive tract; Z90.13 Acquired absence of bilateral breasts and nipples; Z96.651 Presence of right artificial knee joint
CPT/HCPCS: 36415; 36416; 71045; 80053; 80202; 81001; 82150; 82805; 82945; 83615; 83735; 83986; 84157; 84478; 85025; 85060; 87070; 87086; 87116; 87205; 87206; 88112; 88305; 89051; 90935; 94640; 96374; 96375; G0257; J1200; J1630; J2060; J2270; J2310; J2405; J2543; J3370; J7050; J7620

== ENCOUNTER 2019-04-17 13:15 | Outpatient (CLI) | payer MEDICARE, MEDICAID ==
--- NOTE | 2019-04-17 13:39 | RAD ---
RADIOGRAPH CHEST 2 VIEWS: Date: 04/17/19 Time: 1:29 p.m. HISTORY: 79-year-old female with dyspnea. COMPARISON: 10/26/18. FINDINGS: There is dense opacification of the lower 75% of the right lung, due to a large right pleural effusio n and underlying atelectasis/consolidation of the right lung. The apex of the right upper lobe has as ymmetrically diffusely increased interstitial densities. The contralateral left upper lobe is relativ yash clear. Questionable minimal blunting of left posterior and left lateral costophrenic angles which could be a tiny pleural effusion or pleural thickening. No pulmonary edema visualized on the left si de. No pneumothorax. The right pleural effusion has markedly increased in volume compared to 10/26/18. The aeration of the left lung base improved since 10/26/18. There are mild residual pulmonary parench ymal densities at the left lung base. IMPRESSION: 1. Large right pleural effusion with total opacification of the underlying three-fourths of the right lung. 2. Diffuse interstitial densities in the remaining apical portion of the right upper lobe. 3. Mild infiltrate or atelectasis at base of left lung. JN [] POS: CET
== END 2019-04-17 13:16 | disposition home or self-care (01) ==
LOC: RAD 13:15
PROVIDERS: ATTEND Internal Medicine Critical Care Medicine
DX: R06.00 Dyspnea, unspecified (principal); J90 Pleural effusion, not elsewhere classified; R91.8 Other nonspecific abnormal finding of lung field
CPT/HCPCS: 71046

== ENCOUNTER 2019-04-24 00:12 | Observation (INO) | payer MEDICARE, MEDICAID ==
[2019-04-24 01:08] LABS: #Eosinphils 0.1 thou/uL (0.0-0.7); #Lymphocytes 0.8 thou/uL (1.20-3.40); #Monocytes 0.7 thou/uL (0.11-0.59); #Neutrophils 5.4 thou/uL (1.40-6.50); %Basophils 0.2 % (0.0-1.0); %Eosinophils 0.8 % (0.0-10.0); %Lymphocytes 11.3 % (21.0-51.0); %Monocytes 10.5 % (0.0-10.0); %Neutrophils 77.2 % (42.0-75.0); Hemoglobin 12.7 g/dL (12.0-16.0); Mean Corpuscular HGB CONC 32.1 g/dL (32.0-36.0); Mean Corpuscular Hemoglobin 29.7 pg (27.0-31.0); Mean Corpuscular Volume 92.7 fL (78.0-98.0); Mean Platelet Volume 7.8 fL (7.4-10.4); Platelet Count 250 thou/uL (130-400); RBC Distribution Width 14.3 % (11.5-14.5); Red Blood Cell (RBC) Count 4.26 mill/uL (4.20-5.40)
[2019-04-24 01:33] LABS: ALT (SGPT) Less than 7 U/L (8-55); AST (SGOT) 16 U/L (5-34); Albumin 4.1 g/dL (3.4-4.8); Alkaline Phosphatase 184 U/L (40-150); Anion Gap 20 mmol/L (10-20); BUN (Urea Nitrogen) 44 mg/dL (9.8-20.1); Bilirubin, Total 0.5 mg/dL (0.2-1.2); CK (CPK) 78 U/L (29-168); Calc. Creatinine Clearance 0 mL/min (70-130); Calcium 9.4 mg/dL (7.8-10.44); Carbon Dioxide 30 mmol/L (23-31); Chloride 93 mmol/L (98-107); Estimated GFR-MDRD 8; Globulin 3.2 g/dL (2.4-3.5); Glucose 87 mg/dL (83-110); Lipase 11 U/L (8-78); Potassium 4.4 mmol/L (3.5-5.1); Protein, Total 7.3 g/dL (6.0-8.3); Sodium 139 mmol/L (136-145)
[2019-04-24 01:37] LABS: CKMB 2.3 ng/mL (0-6.6)
[2019-04-24 04:40] VITALS: BMI 39.4
--- NOTE | 2019-04-24 08:14 | RAD ---
PORTABLE CHEST ONE VIEW: 04/24/2019 12:35 a.m. HISTORY: Dyspnea. COMPARISON: 04/17/2019 FINDINGS: A large right pleural effusion is again seen. The heart size is stable. No pneumothoraces are seen. There is mild atelectatic change at the left lung base with a probable small left effusion. POS: OFF
[2019-04-24] MEDS ORDERED: Dextrose 50% Abboject 50 ML SYRINGE SLOW IVP PRN (09:05)
[2019-04-24] MEDS ORDERED: Dextrose 5% in Water 1,000 ML IV PRN (09:05)
[2019-04-24] MEDS ORDERED: HumaLOG 300 UNITS/3 ML VIAL SC PRN (09:05)
--- NOTE | 2019-04-24 10:02 | CON ---
DATE OF CONSULTATION: HISTORY OF PRESENT ILLNESS: Ms. Ansari is an 79-year-old black female with known history of ESRD, breast cancer with mets, and admitted for shortness of breath. Chest x-ray showed she has progressive pleural effusion. Chest x-ray done on admission April 24, 2019, was officially read as a large right pleural effusion. We are being consulted for a maintenance hemodialysis. Her regular dialysis is Tuesday, Tuesday, and Tuesday. REVIEW OF SYSTEMS: Progressive shortness of breath. No chest pain. Occasional confusion. No nausea. No vomiting. No fever or chills. No productive cough. No diarrhea. No constipation. No dysuria. No abdominal pain. Appetite and energy level are fair. No syncopal episode. No headache. No abdominal pain. Occasional back pain. No dysuria. MEDICATIONS: Includes the following, Humalog sliding scale. Home medications includes; 1. Coumadin every two days. 2. Sevelamer 800 mg 2 tablets t.i.d. with meals. 3. Sertraline 50 mg at bedtime. 4. Protonix 40 mg tablet once a day. 5. DuoNeb q.i.d. 6. Folic acid one tablet once a day. 7. Atorvastatin 10 mg tablet at bedtime. 8. Allopurinol 100 mg once a day. 9. Lactulose p.r.n. PAST MEDICAL HISTORY: 1. ESRD currently on maintenance hemodialysis. 2. Depression. 3. Hyperlipidemia. 4. History of breast cancer with mets - the patient has had refused treatment status post PE/DVT. 5. History of morbid obesity. 6. Status post CHF. 7. Chronic pain. 8. Type 2 diabetes mellitus. 9. Depression. PAST SURGICAL HISTORY: Status post upper and lower GI endoscopy, status post AV fistula placement, status post breast mastectomy, status post right knee replacement, status post cuffed dialysis catheter placement, status post breast biopsy, status post colonoscopy, and status post laparoscopic cholecystectomy. SOCIAL HISTORY: The patient lives alone. She lives in [place]. Five children. She has a caregiver. Education, 11th grade. Status post blood transfusion. No alcohol. No smoking. No IV drug abuse. Sedentary lifestyle. ALLERGIES: NONE. TRAUMA: None. IMMUNIZATION: Up-to-date. HOSPITALIZATIONS: Please see past medical history. FAMILY HISTORY: Positive family history of ESRD. One sister on dialysis. PHYSICAL EXAMINATION: VITAL SIGNS: Blood pressure is noted at 148/80, heart rate 92, respiratory rate 18, temperature 98.1, and pulse ox 96%. GENERAL: Noted to be awake, alert, obese, comfortable, not in overt distress. SKIN: Adequate turgor. HEENT: She has pinkish conjunctivae. Anicteric sclerae. NECK: No neck mass. No carotid bruits. No JVD. CHEST: No deformities. LUNGS: Decreased breath sounds, right. Left, clear breath sounds. HEART: Normal sinus rhythm. No murmurs. No gallops. No rubs. ABDOMEN: Globular, soft, and nontender. No masses. EXTREMITIES: No edema. No deformities. LABORATORY DATA: Laboratories of April 24, 2019, sodium 139, potassium 4.4, chloride 93, carbon dioxide 30, BUN 44, creatinine 6.22, AST 16, and ALT 78. Chest x-ray - large right pleural effusion. BNP is 127.1. White count is 7 and hemoglobin 12.7. ASSESSMENT AND PLAN: 1. Shortness of breath - this is most likely secondary to a progressive right pleural effusion. Consider therapeutic/diagnostic thoracentesis. Recheck INR today. 2. End-stage renal disease, stable. We will continue current Tuesday, Tuesday, and Tuesday hemodialysis regimen. Tolerating said treatment. No indication for any emergent dialysis with this patient. 3. Breast cancer with mets - consider Palliative Care. Job ID: [id number]
[2019-04-24 10:41] LABS: INR-International Normal Ratio 1.4; PTT 35.6 SEC (22.9-36.1); Prothrombin Time 16.8 SEC (12.0-14.7)
--- NOTE | 2019-04-24 10:42 | HP ---
CHIEF COMPLAINT: Shortness of breath. HISTORY OF PRESENT ILLNESS: This patient is an 79-year-old female, who presented via the emergency department. The patient reports that she started having increasing shortness of breath about a month ago. She states it has progressed to the point where she has dyspnea at rest. She has no chest pain. No fevers or chills. She does report additionally that she has some dysphagia, that has been going on for a while as well. It is even with the food. She denies any coughing or choking, but feels like food is potentially getting stuck in her throat when she tries to swallow. She says she has not been eating or drinking much. This patient has history of metastatic breast cancer, who had bilateral mastectomies, this goes back to 2014. She declined chemo or radiation. Subsequent to that, she has been admitted previously for pleural effusions requiring thoracentesis. She was referred to hospice and palliative care, but it is unclear whether that actually followed through or not, but she does not appear to currently be involved with any sort of palliative care or hospice system. The patient reports that her [id number] has primarily been managing most of her issues and she is not present at the moment. PAST MEDICAL HISTORY: As noted above. The patient has a history of ER-positive, ID-negative, HER2-negative breast cancer, originally diagnosed in 2014. She has had recurrent pleural effusions. She has had multiple pulmonary metastases. The patient reports she has had no new or additional diagnoses since her admission in September, at which time, she was noted to have history of pulmonary embolism, history of coronary artery disease, aortic valve disorder, mitral valve regurgitation, end-stage renal disease, on dialysis, hypertension, hyperlipidemia, type 2 diabetes, right superior pole renal mass, arthritis, depression, colon polyps, and diverticulitis. PAST SURGICAL HISTORY: Includes a left modified radical mastectomy in 1989, right modified radical mastectomy in 2014, hysterectomy, appendectomy, cholecystectomy, AV fistula placement, cataract surgery, and knee replacement. REVIEW OF SYSTEMS: The patient reports some pain in her right leg and the above mentioned dyspnea on exertion. She also reports that she has had significant enlargement in her abdominal girth over the past month as well. No peripheral edema. All other systems reviewed. All pertinent positives and negatives noted in the history of present illness. SOCIAL HISTORY: The patient is a nonsmoker, nondrinker, and nondrug user. She is full code and her children would be her surrogate decision makers if that become necessary. ALLERGIES: NONE. CURRENT MEDICATIONS: Unknown. At the time of discharge in October, the records are not currently retrievable, we will continue to work on those in the past. On her admission in September, she was on; 1. Warfarin. 2. Folic acid. 3. [place]. 4. Sertraline. 5. Lactulose. 6. Allopurinol. 7. Atorvastatin. 8. Renvela. 9. Pantoprazole. 10. Coreg. 11. Gabapentin. PHYSICAL EXAMINATION: VITAL SIGNS: Temperature is 98.1, pulse 92, respirations 18, O2 saturation 96% on 2 L nasal cannula, and blood pressure 148/80. GENERAL APPEARANCE: Age-appropriate female. She is in no distress. She is awake and alert. She seems to be generally oriented, although somewhat unsure of herself with her answers and sometimes little slow to respond, however, very pleasant. HEENT: PERRL. No OP lesions. Extraocular lens noted in the left eye. NECK: Supple and symmetric. HEART: Regular rate and rhythm without murmurs, gallops, or rubs. LUNGS: Clear to auscultation on the left. The right breath sounds are entirely diminished. HEART: Regular. No murmurs appreciated. Normal rate and rhythm. ABDOMEN: Soft, nontender, and nondistended. Appears to be just obese, but there could be some fluid component. EXTREMITIES: No cyanosis, clubbing, or edema. No palpable cords. Pulses are present, slightly diminished. PSYCH: The patient has normal affect and behavior. NEURO: The patient appears to have normal movement of all extremities. LABORATORY DATA: White count 7.0, hemoglobin 12.7, and platelets 250. Sodium 139, potassium 4.4, chloride 93, CO2 of 30, BUN 44, creatinine 6.22, glucose 87, calcium 9.4, AST 16, ALT less than 17, and alkaline phosphatase 184. CK 2.3, troponin 0.015. BNP 127. IMAGING DATA: Chest x-ray shows a large right pleural effusion, possible atelectasis at the left base. IMPRESSION AND PLAN: 1. Acute hypoxic respiratory failure secondary to pleural effusion. 2. Pleural effusion, recurrent, likely related to the patient's metastatic breast cancer. Pulmonary has been consulted. We will likely need to have another thoracentesis. 3. Dysphagia. Consult speech therapy. It would be interesting to see if this improves after her thoracentesis as there could be some tension related to her large pleural effusion exacerbating her swallow. 4. Metastatic breast cancer. The patient has been referred to hospice previously unclear that she has ever followed through on that. We will have our Palliative Care visit the patient today. 5. End-stage renal disease, on hemodialysis. Consult Dr. Mcqueen with the plan to continue her usual dialysis regimen. 6. The patient has a history of deep venous thrombosis. It is unclear if she is taking anticoagulation at this time. We will check coags. 7. History of hyperlipidemia. We will likely need to continue with those medications once clarified. Job ID: [id number]
[2019-04-24 11:04] LABS: Troponin I 0.013 ng/mL (< 0.028)
--- NOTE | 2019-04-24 16:40 | CON ---
DATE OF CONSULTATION: 04/24/2019 SERVICE: Pulmonary Medicine. REASON FOR CONSULTATION: Pleural effusion. HISTORY OF PRESENT ILLNESS: The patient is an 79-year-old female with past medical history significant for breast cancer. She had a right-sided pleural effusion that she underwent a thoracentesis on September. At that time, it was identified as being an exudate with malignant cells. Ultimately, she did fairly well up until about 2 or 3 weeks ago when she started having increasing shortness of breath. She would not have any fevers or chills. She is coughing a little bit , but not bringing up any sputum. Ultimately, the shortness of breath progressed to the point where she had come to the Emergency Department. She was found to be little hypoxemic. She was started on some oxygen and tucked in upstairs. Our consultation was placed, so that I could consider tapping this. She actually just saw Dr. Knight in the outpatient setting. He was trying to set her up for a PleurX catheter. She was referred to Thoracic Surgery, but this is yet to occur. PAST MEDICAL HISTORY: 1. Breast cancer. 2. Malignant effusion on the right. 3. History of pulmonary embolism. 4. Coronary artery disease. 5. End-stage renal disease, requiring hemodialysis. 6. Type 2 diabetes mellitus. 7. Dyslipidemia. 8. Renal mass of the right superior pole. 9. Major depressive disorder. 10. Colon polyps. 11. Diverticulosis. PAST SURGICAL HISTORY: 1. Left mastectomy, modified radical. 2. Right mastectomy, radical. 3. Hysterectomy. 4. Appendectomy. 5. Cholecystectomy. 6. AV fistula placement. 7. Cataract surgery, bilateral. 8. Knee replacement. FAMILY HISTORY: Noncontributory. SOCIAL HISTORY: She currently lives in a nursing facility. She has people that help her there. She denies any alcohol, tobacco, or illicit drug use. ALLERGIES: NO KNOWN DRUG ALLERGIES. MEDICATIONS: List of her inpatient medications were reviewed. No specific updates were made at this time. REVIEW OF SYSTEMS: General, head, ears, eyes, nose, throat, cardiovascular, respiratory, GI, , musculoskeletal, neurologic, and skin is negative except as mentioned in the HPI. PHYSICAL EXAMINATION: VITAL SIGNS: Afebrile, pulse 97, blood pressure 158/100, respirations 20, and saturation 93% on 2 L nasal cannula. GENERAL: The patient is awake and alert, in no apparent distress. LUNGS: Very good air entry without any prolonged expiratory phase on the left. On the right, there is decreased air entry. There is also dullness to percussion. There is no tactile fremitus present in the right lung. HEART: Normal rate, regular. ABDOMEN: Soft, nontender, and nondistended. Bowel sounds are positive. MUSCULOSKELETAL: No cyanosis or clubbing. No pitting in bilateral lower extremities. NEUROLOGIC: Grossly nonfocal. LABORATORY DATA: WBC 7.0, hemoglobin 12.7, and platelets 250,000. INR 1.4. BNP 127, which is close to her baseline low. Troponin negative x2. Basic metabolic profile is unremarkable except for a creatinine of 6.2. Liver function studies otherwise unremarkable. IMAGING DATA: Chest x-ray demonstrates a right-sided pleural effusion. Otherwise, there is no acute cardiopulmonary abnormality present. I certainly do not see any air bronchograms. ASSESSMENT: 1. Acute hypoxic respiratory failure. 2. Malignant pleural effusion on the right. 3. Breast cancer, widely metastatic. 4. End-stage renal disease. DISCUSSION AND PLAN: The patient is being considered for a PleurX catheter on the outpatient setting. As such, we will expedite that referral. Dr. Patel will be invited to come by to discuss this procedure. Since she is in a nursing facility, I do think she would be a reasonable candidate for this procedure. Hopefully, she have auto-pleurodesis space and we will be able to remove this catheter within a month or two. That being said, it certainly may improve quality of life and prevent difficulty breathing through time. She also notes having some degree of dysphagia. Speech pathology believes that this could be secondary to her tachypnea associated with respiratory issue. Once the thoracentesis is done and hypoxic failure is better, we will re-evaluate her dysphagia. If it has not improved, modified barium swallow and/or GI consultation will be considered. 70 minutes have been devoted to this patient in various activities. I personally reviewed all imaging studies and laboratory data noted within this document. For fifty percent of this time, I was interacting with the patient at the bedside or coordinating care with the care team. For the remainder of the time I was immediately available to the patient in the hospital unit. Job ID: [id number] [facility]
--- NOTE | 2019-04-24 22:23 | CON ---
DATE OF CONSULTATION: HISTORY OF PRESENT ILLNESS: This is a pleasant 79-year-old female on chronic MWF hemodialysis. She lives in a fpc in [place]. She was diagnosed with breast carcinoma several years ago and declined treatment after her mastectomies. She was found to have a malignant right pleural effusion in September of this year and due to progressive dyspnea, presented to the emergency room this morning where she was found to have about 2/3 of her right pleural space filled with fluid and I have been asked to see her in regard to a PleurX catheter. PAST SURGICAL HISTORY: Includes hysterectomy, right knee replacement, bilateral mastectomies, and cholecystectomy. SOCIAL HISTORY: She lives in the fpc. She is not . She has a [id number] who has been visiting her here in the hospital and also lives in the [place] area. She is nonsmoker, nondrinker. PHYSICAL EXAMINATION: GENERAL: She is an elderly lady, somewhat overweight, but in good spirits and mentally in good condition. NECK: No carotid bruits. No adenopathy. She is wearing nasal cannula oxygen and sitting on the edge of the bed for her dyspnea. She is able to carry on a conversation. LUNGS: Diminished breath sounds on the right. CARDIAC: Regular rhythm. No murmurs. ABDOMEN: Obese. CHEST: Partial mastectomies bilaterally. EXTREMITIES: No peripheral edema. PLAN: At this time is for right PleurX catheter, and I have explained this to her. We have contacted the fpc about the potential for them to be able to drain that about once or twice a week there. Informed consent has been obtained. Job ID: [id number]
[2019-04-25] MEDS ORDERED: Melatonin 3 MG TAB PO PRN (00:46)
[2019-04-25 05:52] LABS: Anion Gap 17 mmol/L (10-20); BUN (Urea Nitrogen) 56 mg/dL (9.8-20.1); Calc. Creatinine Clearance 8 mL/min (70-130); Calcium 9.8 mg/dL (7.8-10.44); Carbon Dioxide 31 mmol/L (23-31); Chloride 93 mmol/L (98-107); Estimated GFR-MDRD 6; Glucose 85 mg/dL (83-110); Potassium 3.8 mmol/L (3.5-5.1); Sodium 137 mmol/L (136-145)
[2019-04-25 06:01] LABS: #Eosinphils 0.1 thou/uL (0.0-0.7); #Lymphocytes 0.9 thou/uL (1.20-3.40); #Monocytes 0.8 thou/uL (0.11-0.59); #Neutrophils 5.1 thou/uL (1.40-6.50); %Basophils 0.1 % (0.0-1.0); %Eosinophils 1.2 % (0.0-10.0); %Lymphocytes 12.9 % (21.0-51.0); %Monocytes 11.9 % (0.0-10.0); %Neutrophils 73.8 % (42.0-75.0); Hemoglobin 11.3 g/dL (12.0-16.0); Mean Corpuscular Hemoglobin 26.7 pg (27.0-31.0); Mean Corpuscular Volume 91.9 fL (78.0-98.0); Mean Platelet Volume 7.8 fL (7.4-10.4); Platelet Count 256 thou/uL (130-400); Red Blood Cell (RBC) Count 4.23 mill/uL (4.20-5.40); White Blood Cell (WBC) Count 6.9 thou/uL (4.8-10.8)
--- NOTE | 2019-04-25 08:09 | PRG ---
DATE OF SERVICE: 04/25/2019 SUBJECTIVE: Ms. Watts is an 79-year-old black female with ESRD and was admitted for shortness of breath. She was found to have a significant right pleural effusion. Pulmonary has been consulted. The patient is being considered for a PleurX catheter as an outpatient previously. She is currently undergoing dialysis and tolerating said treatment. Fluid removal only as tolerated. OBJECTIVE: VITAL SIGNS: Blood pressure is 109/73, heart rate 94, respiratory rate 18, temperature 97.8, and pulse ox 98%. GENERAL: Noted to be awake, supine, and comfortable, not in overt distress. SKIN: Adequate turgor. HEENT: Pinkish conjunctivae. Anicteric sclerae. NECK: No neck mass. No carotid bruits. No JVD. CHEST: No deformities. LUNGS: Decreased breath sounds, right lung. Left, clear breath sounds. HEART: Normal sinus rhythm. No murmurs, no gallops, no rubs. ABDOMEN: Globular, soft, nontender. No masses. EXTREMITIES: No edema. No deformities. MEDICATIONS: Medications of April 25, 2019, were reviewed. LABORATORY DATA: Laboratories of April 25, 2019; white count 6.9, hemoglobin 11.3. Sodium 137, potassium 3.8, chloride 93, carbon dioxide 31, BUN 56, creatinine 8.42, glucose 85, calcium 9.8. ASSESSMENT AND PLAN: 1. End-stage renal disease, stable. Continuing Tuesday, Tuesday, and Tuesday hemodialysis. Fluid removal only as tolerated. 2. Right pleural effusion-most likely related to her underlying malignancy-breast cancer-for insertion of PleurX catheter. Continue supportive care. 3. Chronic anemia. No indication for any initiation of Epogen. Continue supportive care. Job ID: [id number]
[2019-04-25] MEDS ORDERED: Morphine 4 MG/ML VIAL SLOW IVP PRN (08:47)
[2019-04-25] MEDS ORDERED: HYDROcodone/Acetaminophen 5/325 mg Tablet PO PRN (08:48)
[2019-04-25] MEDS ORDERED: Morphine 2 MG/ML SYRINGE SLOW IVP PRN (09:27)
[2019-04-25] MEDS ORDERED: Bupivacaine HCl 0.5%/Epinephrine 1:200,000/PF 30 ml Vial ONE (11:11)
[2019-04-25] MEDS ORDERED: ceFAZolin Sodium (SDC) 2 GM/100 ML BAG ONE (11:48)
[2019-04-25] MEDS ORDERED: Ibuprofen 600 MG TAB PO PRN (13:21)
[2019-04-25] MEDS ORDERED: traMADol HCl 50 MG TAB PO PRN (13:21)
--- NOTE | 2019-04-25 13:37 | RAD ---
XR Chest 1 View Portable HISTORY: Chest tube insertion, right pleural effusion COMPARISON: Previous day FINDINGS: There is been interval near complete resolution of the right pleural effusion secondary to placement of a right-sided chest tube since the previous day's exam. A small right pneumothorax is noted. There is subcutaneous emphysema in the right lateral chest wall
--- NOTE | 2019-04-25 13:54 | OP ---
DATE OF PROCEDURE: 04/25/2019 PREOPERATIVE DIAGNOSIS: Malignant right pleural effusion. PROCEDURE PERFORMED: PleurX catheter. ANESTHESIA: Sedation with local. DESCRIPTION OF PROCEDURE: After adequate sedation had been obtained, the patient's right chest was prepped and draped. Lidocaine was used to infiltrate over the lateral chest wall, where an aspiration with lidocaine needle demonstrated yellow fluid. Angiocath was then placed with yellow fluid coming from the catheter. A wire was then inserted following which the dilator and peel-away sheath were placed. Peel-away sheath did not advance easily and on removal was noted to be kinked. The dilator was again placed without difficulty and the peel-away sheath introduced in the PleurX catheter, which had been brought through a separate tunnel and was then passed through the sheath. However, there was no fluid that could be removed. This catheter was then removed and a puncture site more lateral and inferior was obtained with a needle again demonstrating yellow fluid and the Angiocath was the same. Wire was inserted. Dilator and then peel-away sheath and the catheter, which had been brought through a separate incision and tunnel, was then passed without difficulty and 2300 mL of yellow fluid was removed. Skin incisions were then closed and the catheter was secured to the skin. Job ID: [id number]
--- NOTE | 2019-04-25 14:53 | PDOC.HOSPP ---
- Subjective Subjective: Ms. Ansari was seen today in follow-up of Malignant Pleural effusion. She is s/p PleurX catheter placement. She does not have any complaints. - Objective Vital Signs & Weight: Vital Signs (12 hours) Temp Pulse Resp BP Pulse Ox 04/25/19 05:00 97.8 F 94 18 109/73 98 Weight Admit Weight 202 lb Weight 202 lb I&O: 04/24/19 04/25/19 04/26/19 06:59 06:59 06:59 Intake Total 850 Balance 850 Result Diagrams: 04/25/19 04:41 04/25/19 04:41 Additional Labs: Accuchecks 04/25/19 04/25/19 04/24/19 13:54 04:39 20:48 POC Glucose 91 87 110 04/24/19 16:02 POC Glucose 111 H ROS - Review of Systems All systems: All other ROS were reviewed and found negative. - Medication Medications: Active Medications Generic Name Dose Route Start Last Admin Trade Name Freq PRN Reason Stop Dose Admin Melatonin 3 mg 04/25/19 00:46 04/25/19 01:02 Melatonin PO 3 mg HS PRN Administration Insomnia Morphine Sulfate 4 mg 04/25/19 08:47 04/25/19 09:55 Morphine SLOW IVP 4 mg Q4H PRN Administration Severe Pain (7-10) Sodium Chloride 10 ml 04/24/19 09:00 04/25/19 09:55 Flush - Normal Saline IVF 10 ml Q12HR DAYNA Administration - Exam Eye: PERRL, anicteric sclera Heart: RRR, no murmur, no gallops, no rubs, normal peripheral pulses Respiratory: no wheezes, no ronchi, normal chest expansion, rales (+ rales at the bases, with decreased breath sounds) Gastrointestinal: soft, non-tender, non-distended, normal bowel sounds, no palpable masses Extremities: no cyanosis, no edema Hosp A/P (1) Malignant pleural effusion Code(s): J91.0 - MALIGNANT PLEURAL EFFUSION Status: Acute (2) Breast cancer Status: Chronic (3) ESRD on dialysis Code(s): N18.6 - END STAGE RENAL DISEASE; Z99.2 - DEPENDENCE ON RENAL DIALYSIS Status: Chronic (4) Hypertension Code(s): I10 - ESSENTIAL (PRIMARY) HYPERTENSION Status: Chronic Qualifiers: - Plan * Malignant Pleural effusion- Ms. Ansari is s/p PleurX catheter placement * She is clinically stbale * plan for discharge to [facility] today
[2019-04-25] MEDS ORDERED: PROPOFOL 200 MG/20 ML VIAL ONE (16:20)
[2019-04-25 16:23] VITALS: BP 159/94; TEMP 97.6
--- NOTE | 2019-04-26 14:43 | DIS ---
DATE OF ADMISSION: 04/24/2019 DATE OF DISCHARGE: 04/25/2019 PRIMARY CARE PHYSICIAN: Neela Hugo MD DISCHARGE DISPOSITION: senior living facility at [place]. DISCHARGE DIAGNOSES: 1. Malignant pleural effusion, status post PleurX catheter placement. 2. Breast cancers. 3. End-stage renal disease, on hemodialysis. 4. Hypertension. 5. Diabetes mellitus type 2. DISCHARGE MEDICATIONS: Include; 1. Zofran 4 mg q.6 as needed. 2. Pepcid 20 mg daily. 3. Warfarin 1 mg daily. 4. Tramadol 50 mg q.6 as needed. 5. Renvela 1600 mg t.i.d. 6. Zoloft 50 mg daily. 7. Protonix 40 mg daily. 8. Lactulose on Tuesday, Tuesday, and Tuesday. 9. DuoNeb twice a day. 10. Gabapentin 300 mg twice daily. 11. Carvedilol 3.125 mg daily. 12. Pro-Stat Sugar. PROCEDURES DONE DURING THE ADMISSION: The patient had a PleurX catheter placed. CODE STATUS: Full code. ALLERGIES: NO KNOWN DRUG ALLERGIES. HOSPITAL COURSE: Ms. Ansari is a pleasant 79-year-old female, who was admitted after she developed severe shortness of breath. This was related to a malignant pleural effusion. The patient actually had plans of having a PleurX catheter placed in the outpatient setting, but her shortness of breath preceded the appointment and she had to come urgently to the ER. She was admitted and Vascular Surgery was consulted. She underwent the PleurX catheter placement and had an uneventful postoperative course and tolerated the procedure. Unfortunately, her previous nursing facility did not have the ability to manage the PleurX catheter. Therefore, she was transferred to a different facility at discharge in [place], who could manage the PleurX catheter. Job ID: [id number]
--- NOTE | 2019-05-01 13:54 | EKG ---
Test Reason : Blood Pressure : / mmHG Vent. Rate : 098 BPM Atrial Rate : 098 BPM P-R Int : 164 ms QRS Dur : 080 ms QT Int : 364 ms P-R-T Axes : 019 010 026 degrees QTc Int : 464 ms Normal sinus rhythm Nonspecific ST and T wave abnormality Abnormal ECG Confirmed by JESUS ROBERTO, DEEPIKA ([id number]), clinical editor CHRISTIANO CASE ([id number]) on 05/01/2019 1:53:23 PM Referred By: Confirmed By:DEEPIKA LEE MD
== END 2019-04-25 16:51 ==
LOC: ERS 00:12 → T4-A 03:52
PROVIDERS: ADMIT Family Medicine; ATTEND Family Medicine
PROC: 0WH933Z Insertion of Infusion Device into Right Pleural Cavity, Percutaneous Approach (ICD-10-PCS; principal; 2019-04-25)
DX: C78.00 Secondary malignant neoplasm of unspecified lung (principal); J91.0 Malignant pleural effusion; J96.01 Acute respiratory failure with hypoxia; I25.10 Atherosclerotic heart disease of native coronary artery without angina pectoris; I13.2 Hypertensive heart and chronic kidney disease with heart failure and with stage 5 chronic kidney disease, or end stage renal disease; E11.22 Type 2 diabetes mellitus with diabetic chronic kidney disease; N18.6 End stage renal disease; I50.9 Heart failure, unspecified; E78.5 Hyperlipidemia, unspecified; M19.90 Unspecified osteoarthritis, unspecified site; F32.9 Major depressive disorder, single episode, unspecified; R13.10 Dysphagia, unspecified; G89.29 Other chronic pain; D64.9 Anemia, unspecified; Z85.3 Personal history of malignant neoplasm of breast; Z86.711 Personal history of pulmonary embolism; Z79.01 Long term (current) use of anticoagulants; Z79.4 Long term (current) use of insulin; Z79.899 Other long term (current) drug therapy; Z99.2 Dependence on renal dialysis
CPT/HCPCS: 32550; 71045 ×2; 80048; 80053; 82550; 82553; 82962 ×2; 83690; 83880; 84484 ×2; 85025 ×2; 85610; 85730; 93005; 99285; C1729; G0378 ×3; 36415; 36416; 90935; G0257; J0670; J0690; J2270; J2704

== ENCOUNTER 2019-05-21 20:10 | Emergency (ER) | payer MEDICARE, MEDICAID ==
[2019-05-21 21:47] LABS: #Eosinphils 0.1 thou/uL (0.0-0.7); #Lymphocytes 0.7 thou/uL (1.20-3.40); #Monocytes 0.7 thou/uL (0.11-0.59); #Neutrophils 5.9 thou/uL (1.40-6.50); %Basophils 0.4 % (0.0-1.0); %Eosinophils 1.2 % (0.0-10.0); %Lymphocytes 9.3 % (21.0-51.0); %Monocytes 9.9 % (0.0-10.0); %Neutrophils 79.3 % (42.0-75.0); Hemoglobin 11.2 g/dL (12.0-16.0); Mean Corpuscular HGB CONC 32.5 g/dL (32.0-36.0); Mean Corpuscular Hemoglobin 29.5 pg (27.0-31.0); Mean Corpuscular Volume 90.7 fL (78.0-98.0); Mean Platelet Volume 7.5 fL (7.4-10.4); Platelet Count 293 thou/uL (130-400); Red Blood Cell (RBC) Count 3.78 mill/uL (4.20-5.40); White Blood Cell (WBC) Count 7.4 thou/uL (4.8-10.8)
--- NOTE | 2019-05-21 21:52 | RAD ---
XR Chest 1 View Portable History: Dyspnea Comparison: Chest radiograph April 25, 2019 Findings: Moderate bilateral layering pleural effusions. No pneumothorax. Right thoracostomy tube is in place with tip projecting over the mid right mediastinum. This appears be somewhat retracted from the comparison exam. Impression: Slight interval retraction of the right thoracostomy tube with moderate bilateral layerin g pleural effusions. No pneumothorax.
[2019-05-21 22:12] LABS: ALT (SGPT) Less than 7 U/L (8-55); AST (SGOT) 8 U/L (5-34); Albumin 3.3 g/dL (3.4-4.8); Alkaline Phosphatase 145 U/L (40-150); Anion Gap 13 mmol/L (10-20); BUN (Urea Nitrogen) 20 mg/dL (9.8-20.1); Bilirubin, Total 0.4 mg/dL (0.2-1.2); Calc. Creatinine Clearance 0 mL/min (70-130); Calcium 8.6 mg/dL (7.8-10.44); Carbon Dioxide 33 mmol/L (23-31); Chloride 94 mmol/L (98-107); Estimated GFR-MDRD 10; Globulin 2.8 g/dL (2.4-3.5); Glucose 107 mg/dL (83-110); Potassium 3.9 mmol/L (3.5-5.1); Protein, Total 6.1 g/dL (6.0-8.3); Sodium 136 mmol/L (136-145)
== END 2019-05-21 23:48 ==
LOC: ERS 20:10
DX: J91.0 Malignant pleural effusion (principal); I13.0 Hypertensive heart and chronic kidney disease with heart failure and stage 1 through stage 4 chronic kidney disease, or unspecified chronic kidney disease; E11.22 Type 2 diabetes mellitus with diabetic chronic kidney disease; I50.9 Heart failure, unspecified; N18.6 End stage renal disease; E78.00 Pure hypercholesterolemia, unspecified; M10.9 Gout, unspecified; F32.9 Major depressive disorder, single episode, unspecified; Z99.2 Dependence on renal dialysis; Z87.891 Personal history of nicotine dependence
CPT/HCPCS: 36415; 71045; 80053; 85025; 87070; 87077; 87186; 87205